=== PATIENT | female | born 1955 | race Caucasian/White ===

== ENCOUNTER 2016-09-16 01:19 | Inpatient (IN) | payer MEDICAID, OTHER ==
[2016-09-16] VITALS (8 sets, daily range): BP systolic 67–139; BP diastolic 61–63; PULSE 73–101; RESP 18–20; TEMP 98.1; Ht 162.6 cm; Wt 80.0 kg
[~2016-09-16] VITALS: Ht 162.6 cm; Wt 80.0 kg
[~2016-09-16 01:19] MED LIST: ACID1TAB14 PO; ADV25050 INH; AMLO5TAB4 PO; ATEN50TA PO; ATOR80TA75 PO; BENA40TA41 PO; BENZ1LOZ4 MT; CALC0.2511 PO; CALC667C PO; CALC667T2 PO; CARV12.579 PO; CLOP75TA27 PO; FLUC150T41 PO; FURO80TA3 PO; GABA100C14 PO; GABA300C PO; HYDR-3671 PO; IPRA4AER INHALATION; LANT3I SC; LEVO500T10 PO; LORA0.5T PO; LOSA50TA6 PO; MICO24CM3 VAG; NOVO3I SC; PANT40TA3 PO; PANT40TA4 PO; POLY15DR42 BOTH EYES; POLY17PO6 PO; PRED5 PO; SEVE800T10 PO; TRAM-40 PO; TRAM50TA2 PO
[2016-09-16] MEDS ORDERED: ONDANSETRON 4 MG INJ IV STA (02:35)
[2016-09-16] MEDS ORDERED: SOD CHLORIDE 0.9% 500 ML IV STA (02:35)
[2016-09-16 03:22] LABS: ADD SCAN DIFF NO
[2016-09-16 03:24] LABS: BASOPHILS % 0.5 % (0.0-2.0); EOSINOPHILS # 0.1 10^3/ul (0.0-0.5); EOSINOPHILS % 1.2 % (0.0-7.0); HEMATOCRIT 41.1 % (37.0-47.0); LYMPHOCYTES # 0.9 10^3/ul (0.8-2.9); LYMPHOCYTES % 11.5 % (15.0-51.0); MEAN CORPUSCULAR HGB CONC 31.6 g/dl (32.0-37.0); MEAN CORPUSCULAR VOLUME 98.1 fl (82.0-101.0); MEAN PLATELET VOLUME 10.3 fl (7.4-10.4); MONOCYTE # 0.4 10^3/ul (0.3-0.9); MONOCYTES % 4.6 % (0.0-11.0); NEUTROPHIL # 6.6 10^3/ul (1.6-7.5); NEUTROPHILS % 81.8 % (39.0-77.0); PLATELET COUNT 218 10^3/UL (140-415); RED BLOOD COUNT 4.19 10^6/ul (4.20-5.40); RED CELL DISTRIBUTION WIDTH 14.6 % (11.5-14.5); WHITE BLOOD COUNT 8.1 10^3/ul (4.8-10.8)
[2016-09-16 03:29] LABS: ADD UMIC YES; UR ASCORBIC ACID NEGATIVE (NEGATIVE); UR BACTERIA FEW /HPF (NONE SEEN); UR BILIRUBIN (Dip) NEGATIVE (NEGATIVE); UR BLOOD (Dip) NEGATIVE (NEGATIVE); UR CLARITY CLEAR (CLEAR); UR COLOR YELLOW (YELLOW); UR GLUCOSE (Dip) 2+ mg/dL (NEGATIVE); UR KETONES (Dip) NEGATIVE (NEGATIVE); UR LEUKOCYTE ESTERASE (Dip) NEGATIVE Leu/ul (NEGATIVE); UR NITRITE (Dip) NEGATIVE (NEGATIVE); UR RBC 1 /HPF (0-5); UR SPECIFIC GRAVITY (Dip) 1.011 (1.003-1.030); UR TOTAL PROTEIN (Dip) 2+ mg/dl (NEGATIVE); UR UROBILINOGEN (Dip) NEGATIVE (NEGATIVE)
[2016-09-16 03:57] LABS: ALANINE AMINOTRANSFERASE 33 IU/L (13-69); ALBUMIN 4.5 g/dl (3.3-4.9); ALBUMIN/GLOBULIN RATIO 1.55; ALKALINE PHOSPHATASE 95 IU/L (42-121); ASPARTATE AMINO TRANSFERASE 23 IU/L (15-46); BILIRUBIN,INDIRECT 0.1 mg/dl (0-1.1); BILIRUBIN,TOTAL 0.1 mg/dl (0.2-1.3); BLOOD UREA NITROGEN 33 mg/dl (7-20); CALCIUM 9.2 mg/dl (8.4-10.2); CHLORIDE 101 mmol/L (97-110); CREATININE 5.69 mg/dl (0.44-1.00); GLUCOSE 137 mg/dl (70-220); POTASSIUM 4.9 mmol/L (3.5-5.1); SODIUM 144 mmol/L (135-144); TOTAL PROTEIN 7.4 g/dl (6.1-8.1)
[2016-09-16 04:09] LABS: TROPONIN-I < 0.012 ng/ml (0.00-0.12)
[2016-09-16 04:11] LABS: ANION GAP 22 (8-16); CARBON DIOXIDE 26 mmol/L (21-31)
[2016-09-16] MEDS ORDERED: CEFEPIME 1GM/50 ML (PMX) 50 ML IVPB ONE (05:00)
[2016-09-16] MEDS ORDERED: METOCLOPRAMIDE 10 MG INJ IV ONE (05:00)
[2016-09-16] MEDS ORDERED: DIPHENHYDRAMINE 50 MG INJ IV ONE (05:00)
--- NOTE | 2016-09-16 06:14 | RADRPT ---
PROCEDURE: CT Brain without contrast. CLINICAL INDICATION: Headache TECHNIQUE: Axial images from the skull base through the vertex without IV contrast. Multiplanar r eformatted images were made. Images were reviewed on a PACS workstation. The CTDIvol is 43.05 mGy and the DLP is 720.23 mGycm. One or more of the following dose reduction techniques were used: auto mated exposure control, adjustment of the mA and/or kV according to patient size, or use of iterativ e reconstruction technique. COMPARISON: None. FINDINGS: There is mild atrophy and probable chronic microvascular ischemic change. There is no evidence for acute territorial infarction or intracranial hemorrhage. No mass or midline shift is seen. No intr a or extra-axial fluid collection is seen. Intracranial vascular calcification is seen. The ocula r lens of both eyes is hypoplastic or absent. IMPRESSION: Mild atrophy and probable chronic microvascular ischemic change. No definite acute intracranial abn ormality. RPTAT: HLBE Physician Cristy Date Time Electronically viewed and signed by Leonarda Morgan Physician on 09/16/2016 06:13 LE/
--- NOTE | 2016-09-16 06:23 | ERA ---
ER Documentation Chief Complaint Date/Time DATE: 09/16/16 TIME: 06:20 Chief Complaint weakness today, dialysis ptdialysis days M/W/F HPI This 61-year-old female presents for severe generalized weakness after dialysis today. States she has dialysis Saturday and sometimes feels weak after dialysis but never this week. She has no focal weaknesses. She also has a headache. She believes she may be dehydrated. She has no chest pain shortness of breath fever or chills. ROS All systems reviewed and are negative except as per history of present illness. Medications Home Meds Active Scripts Gabapentin* (Neurontin*) 300 Mg Capsule, 300 MG PO BID, #60 CAP Prov:LISSY IVERSON. 05/19/16 Albuterol/Ipratropium* (Combivent Respimat*) 20-100 Mcg/Inh - 4 Gm Aer.w.adap, 1 PUFF INHALATION QID for SHORTNESS OF BREATH, #1 INHALER 1 Refill use every 4 hours for the next 48hrs then change to every 4 hours as neededonly for cough and SOB Prov:LISSY IVERSON. 05/19/16 Salmeterol Xinaf/Fluticasone* (Advair*) 250-50 Diskus Inhaler, 1 INH INH BID, # 1 VIAL 2 Refills Prov:LISSY IVERSON . 05/19/16 Prednisone* (Prednisone*) 5 Mg Tab, 10 MG PO DAILY for 5 Days, TAB Prov:LISSY IVERSON . 05/19/16 Pantoprazole* (Pantoprazole*) 40 Mg Tablet.dr, 40 MG PO BID@06,18 for 14 Days Prov:LISSY IVERSONColin 05/19/16 Lactobacillus Acidoph/Bulgaricus* (Floranex*) 1 Each Tablet, 1 TAB PO BID for 30 Days, TAB Prov:LISSY IVERSONColin 05/19/16 Insulin Glargine* (Lantus*) 100 Unit/Ml Soln, 25 UNIT SC DAILY@20 for 30 Days Prov:LISSY IVERSON Colin 05/19/16 Insulin Aspart* (Novolog Insulin Pen*) 100 Unit/Ml Soln, 9 UNIT SC WITH MEALS for 30 Days Prov:CHARLENE IVERSONMarietta TasneemColin 05/19/16 Hydralazine Hcl* (Hydralazine Hcl*) 25 Mg Tab, 25 MG PO Q8 for 30 Days, TAB Prov:LISSY IVERSON. 05/19/16 Carvedilol* (Carvedilol*) 12.5 Mg Tablet, 12.5 MG PO BID for 30 Days, TAB 2 Refills Prov:LISSY IVERSON. 05/19/16 Calcium Acetate* (Calcium Acetate*) 667 Mg Capsule, 667 MG PO WITH MEALS for 30 Days, CAP Prov:LISSY IVERSON. 05/19/16 Calcitriol* (Calcitriol*) 0.25 Mcg Capsule, 0.25 MCG PO DAILY for 30 Days, CAP Prov:LISSY IVERSON 05/19/16 Benzocaine/Menthol (SORE THROAT LOZENGE) 1 Each Lozenge, 1 LOZENGE MT Q1H Y for COUGH, #30 LOZENGE Prov:LISSY IVERSON 05/19/16 Amlodipine Besylate* (Norvasc*) 5 Mg Tablet, 5 MG PO DAILY for 30 Days, TAB Prov:LISSY IVERSON 05/19/16 Reported Medications Losartan Potassium* (Losartan Potassium*) 50 Mg Tablet, 50 MG PO DAILY, TAB 05/11/16 Tramadol Hcl* (Ultram*) 50 Mg Tablet, 50 MG PO BID Y for PAIN, TAB 05/11/16 Furosemide* (Furosemide*) 80 Mg Tablet, 80 MG PO BID, #60 TAB 05/11/16 Allergies Allergies: Coded Allergies: acetaminophen (Verified Allergy, Unknown, 05/11/16) PMhx/Soc History of Surgery: Yes (CATARACT SURGEY, CHOLECYSTECTOMY) Anesthesia Reaction: No Hx Neurological Disorder: No Hx Respiratory Disorders: Yes (ASTHMA ) Hx Cardiac Disorders: Yes (HTN ) Hx Psychiatric Problems: No Hx Miscellaneous Medical Probl: No Hx Alcohol Use: No Hx Substance Use: No Hx Tobacco Use: No Smoking Status: Never smoker Physical Exam Vitals Vital Signs Date Time Temp Pulse Resp B/P Pulse Ox O2 Delivery O2 Flow Rate FiO2 09/16/16 06:20 106 18 163/78 93 Room Air 09/16/16 05:45 97 21 152/69 96 Room Air 09/16/16 01:21 97.8 97 20 166/76 96 Physical Exam Const: [] Mild distress, a appears somewhat ill Head: Atraumatic Eyes: Normal Conjunctiva, EOMI, CATARINA ENT: Normal External Ears, Nose and Mouth. Dry mucous membranes of the mouth consistent with dehydration. Neck: Full range of motion..~ No meningismus. Resp: Clear to auscultation bilaterally Cardio: Regular rate and rhythm, no murmurs Abd: Soft, non tender, non distended. Normal bowel sounds Skin: No petechiae or rashes Back: No midline or flank tenderness Ext: No cyanosis, trace bilateral pedal edema Neur: Awake and alert and oriented 3, cranial nerves II through XII intact, no cerebellar deficits, normal gait Psych: Normal Mood and Affect Result Diagram: 09/16/167 09/16/167 Results 24 hrs Laboratory Tests Test 09/16/16 02:47 09/16/16 02:56 White Blood Count 8.110^3/ul Red Blood Count 4.1910^6/ul Hemoglobin 13.0g/dl Hematocrit 41.1% Mean Corpuscular Volume 98.1fl Mean Corpuscular Hemoglobin 31.0pg Mean Corpuscular Hemoglobin Concent 31.6g/dl Red Cell Distribution Width 14.6% Platelet Count 63869^3/UL Mean Platelet Volume 10.3fl Neutrophils % 81.8% Lymphocytes % 11.5% Monocytes % 4.6% Eosinophils % 1.2% Basophils % 0.5% Nucleated Red Blood Cells % 0.0/100WBC Neutrophils # 6.610^3/ul Lymphocytes # 0.910^3/ul Monocytes # 0.410^3/ul Eosinophils # 0.110^3/ul Basophils # 0.010^3/ul Nucleated Red Blood Cells # 0.010^3/ul Sodium Level 144mmol/L Potassium Level 4.9mmol/L Chloride Level 101mmol/L Carbon Dioxide Level 26mmol/L Anion Gap 22 Blood Urea Nitrogen 33mg/dl Creatinine 5.69mg/dl Glucose Level 137mg/dl Lactic Acid Level 1.4mmol/L Calcium Level 9.2mg/dl Total Bilirubin 0.1mg/dl Direct Bilirubin 0.00mg/dl Indirect Bilirubin 0.1mg/dl Aspartate Amino Transf (AST/SGOT) 23IU/L Alanine Aminotransferase (ALT/SGPT) 33IU/L Alkaline Phosphatase 95IU/L Troponin I < 0.012ng/ml Total Protein 7.4g/dl Albumin 4.5g/dl Globulin 2.90g/dl Albumin/Globulin Ratio 1.55 Lipase 41U/L Urine Color YELLOW Urine Clarity CLEAR Urine pH 9.0 Urine Specific [place] 1.011 Urine Ketones NEGATIVEmg/dL Urine Nitrite NEGATIVEmg/dL Urine Bilirubin NEGATIVEmg/dL Urine Urobilinogen NEGATIVEmg/dL Urine Leukocyte Esterase NEGATIVELeu/ul Urine Microscopic RBC 1/HPF Urine Microscopic WBC 3/HPF Urine Bacteria FEW/HPF Urine Hemoglobin NEGATIVEmg/dL Urine Glucose 2+mg/dL Urine Total Protein 2+mg/dl Current Medications Medications (Trade) Dose Ordered Sig/Daniel Route PRN Reason Start Time Stop Time Status Last Admin Dose Admin Sodium Chloride (NS) 500 ml @ 500 mls/hr Q1H STAT IV 09/16/16 02:35 09/16/16 03:34 DC 09/16/16 03:07 Ondansetron HCl 4 mg 4 mg ONCE STAT IV 09/16/16 02:35 09/16/16 02:38 DC 09/16/16 03:06 Cefepime HCl (Maxipime 1gm/50 ml (Pmx)) 50 ml @ 100 mls/hr ONCE ONCE IVPB 09/16/16 05:00 09/16/16 05:29 DC 09/16/16 05:05 Metoclopramide HCl (Reglan) 10 mg ONCE ONCE IV 09/16/16 05:00 09/16/16 05:01 DC 09/16/16 05:06 Diphenhydramine HCl 6.25 mg 6.25 mg ONCE ONCE IV 09/16/16 05:00 09/16/16 05:01 DC 09/16/16 05:06 Sodium Chloride (NS) 1,000 ml @ 1,000 mls/hr Q1H ONCE IV 09/16/16 07:00 09/16/16 07:59 Procedures/MDM Dehydration from possible over dialysis and generalized weakness. 61-year-old dialysis patient with no signs of infection but does have signs of daily dehydration on physical exam with dry mucous membranes and patient states that she feels very dehydrated. After liter of normal saline she feels a little better but still feels too weak to get up and perform activities of daily living. This reason I think it is prudent to admit her to the hospital for hydration and monitoring as she says she has never felt this week before. Her a few white blood cells in the patient's urine and she was given a gram of cefepime. EKG interpretation: Normal sinus rhythm rate of 94, normal axis, no ST or T- wave changes concerning for acute ischemia, normal intervals. shelter monitor interpretation: Normal sinus rhythm alternating with sinus tachycardia no other arrhythmias CT head interpretation: I see no acute process. I see no hemorrhage, no mass- effect or midline shift no skull fracture Departure Diagnosis: Primary Impression: Acute weakness Additional Impression: Dehydration Condition: Stable LENNOX AMEZQUITA DO Sep 16, 2016 06:23
[2016-09-16] MEDS ORDERED: SOD CHLORIDE 0.9% 1,000 ML IV ONE (07:00)
[2016-09-16] MEDS ORDERED: GLUCOSE GEL 15 GRAM TUBE BUCCAL PRN (08:00)
[2016-09-16] MEDS ORDERED: ZOLPIDEM 5 MG TAB PO PRN (08:00)
[2016-09-16] MEDS ORDERED: CEPASTAT LOZENGE MT PRN (08:00)
[2016-09-16] MEDS ORDERED: ONDANSETRON 4 MG INJ IV PRN (08:00)
[2016-09-16] MEDS ORDERED: ACETAMINOPHEN 325 MG TAB PO PRN (08:00)
[2016-09-16] MEDS ORDERED: DOCUSATE SODIUM 100 MG CAP PO PRN (08:00)
[2016-09-16] MEDS ORDERED: MAGNESIUM HYDROXIDE 30ML CUP PO PRN (08:00)
[2016-09-16] MEDS ORDERED: DEXTROSE 50% 50 ML SYRINGE IV PRN ×2 (08:00)
[2016-09-16] MEDS ORDERED: GLUCOSE GEL 15 GRAM TUBE PO PRN ×2 (08:00)
[2016-09-16] MEDS ORDERED: NACL 0.9% 3 ML SYG IV SCH (08:00)
[2016-09-16] MEDS ORDERED: GLUCAGON 1 MG INJ IM PRN (08:00)
--- NOTE | 2016-09-16 08:32 | RADRPT ---
PROCEDURE: CT Abdomen and pelvis without contrast. CLINICAL INDICATION: Abdominal pain. Weakness. TECHNIQUE: CT scan of the abdomen and pelvis without contrast was performed on a multidetector hig h-resolution CT scan. . Coronal and sagittal reformatted images were obtained from the axial [facility] e images. Standard CT scan of the abdomen pelvis without contrast protocols were performed. The total exam CTDI equals 22.43 mGy and the total exam DLP equals 1274.43 mGy-cm. One or more of the following dose reduction techniques were used: - Automated exposure control. - Adjustment of the mA and/or kV according to patient size. Use of iterative reconstruction technique. COMPARISON: None. FINDINGS: The kidneys are mildly atrophic. No intra renal masses or hydronephrosis bilaterally. There are va scular calcifications involving both kidneys. However in the posterior mid right kidney is a a 3 mm non-obstructing calcified calculus. The ureters and urinary bladder appear unremarkable. The gallbladder is not visualized consistent with cholecystectomy. No evidence of biliary ductal di lation. The liver spleen pancreas and adrenal glands are unremarkable. Scattered diverticulosis throughout the colon but no CT evidence of diverticulitis. Those portions would appear to be the appendix are unremarkable. No CT evidence of appendicitis. The stomach and small bowel are unremarkable. No evidence of intra-abdominal free air, free fluid, abscesses or lymphadenopathy. The uterus is anteverted with left a calcified leiomyoma. No adnexal masses. No evidence of intra- abdominal free air, free fluid, There is extensive atherosclerosis of the aorta and its branches but no aneurysm. Lower thoracic ab dominal pelvic rodriguez are unremarkable. Parenchymal changes at the lung bases consistent with chroni c interstitial lung disease and atelectasis. The lung bases are otherwise unremarkable. There is d egenerative changes lower thoracic and lumbar spine without acute osseous findings are osteoblastic/ osteolytic lesions. IMPRESSION: 1. 3 mm nonobstructing mid right renal calculus. Mild atrophy of both kidneys without intrarenal m asses or obstructive uropathy bilaterally. 2. Status post cholecystectomy of biliary ductal dilation. 3. Colonic diverticulosis without CT evidence of diverticulitis or appendicitis. 4. Negative for intra-abdominal free air fluid abscesses or lymphadenopathy. RPTAT:AAJJ Michelle Lassiter Physician Date Time Electronically viewed and signed by Michelle Lassiter Physician on 09/16/2016 08:32 BM/
--- NOTE | 2016-09-16 08:36 | HP ---
DATE OF ADMISSION: 09/16/2016 CHIEF COMPLAINT: Fatigue. HISTORY OF PRESENT ILLNESS: The patient is a 61-year-old female with history of end-stage renal dis ease on dialysis Saturday, Saturday, and Saturday for the past 2 years. The patient has a history of a sthma, type 2 diabetes, hypertension. The patient states that for the past approximately a year she has been having difficulty eating with nausea. She states that as of 2 days ago she has been feeli ng extremely weak, unable to ambulate. She did receive her dialysis as normal on Saturday but continu ed to feel weak and came to the ED for further evaluation. In the ER, the patient's workup showed n o UTI. Brain CT was negative for any acute findings. The patient does report some abdominal pain a t this time but states that is her baseline. The patient has no other complaints at this time. She denies any burning with urination. She denies any chest pain, any headaches, any fevers, but does have chronic chills. PAST MEDICAL HISTORY: As per HPI which includes asthma, hypertension, end-stage renal disease, and type 2 diabetes. PAST SURGICAL HISTORY: AV fistula placement in the past. HOME MEDICATIONS: 1. Norvasc. 2. Calcitriol. 3. Coreg. 4. Furosemide. 5. Gabapentin. 6. Hydralazine. 7. Insulin. 8. Losartan. 9. Protonix. 10. Prednisone. 11. Advair. 12. Tramadol. ALLERGIES: ACETAMINOPHEN. FAMILY HISTORY: Noncontributory. SOCIAL HISTORY: Denies any alcohol, tobacco, or drug abuse. REVIEW OF SYSTEMS: A 12-point review of systems negative except that mentioned in the HPI. PHYSICAL EXAMINATION: VITAL SIGNS: Temperature is 98.9, pulse 100, respiratory rate is 18, BP is 160/60, saturation 97% o n 2 L. GENERAL: Mild distress, alert and oriented. HEENT: Normocephalic, atraumatic. LUNGS: Clear to auscultation. CARDIOVASCULAR: Regular rate and rhythm. ABDOMEN: Nondistended, soft, tender to palpation. EXTREMITIES: No clubbing, cyanosis, or edema. LABORATORY TESTS: White count is 8.1, hemoglobin 16.0, platelets of 218. Chemistry within normal l imits except for creatinine of 5.69, BUN is 33, anion gap is 22, AST is 1.4. DIAGNOSTICS: Brain CT shows mild atrophy and probable chronic microvascular ischemic changes, no ac solomon intracranial abnormality. ASSESSMENT AND PLAN: 1. Generalized weakness with significant fatigue and difficulty ambulating. Etiology is unclear at this time. The patient has no evidence of a UTI. Chest x-ray has not been obtained, and we will o btain one. We will also obtain an abdominopelvic CT as she is having pain for almost a year now and has been having a hard time tolerate a p.o. diet. This could be related to gastroparesis, but we w ill do a CAT scan to rule out any intraabdominal pathology. Once again, we will follow up on chest x-ray to rule out pneumonia or fluid overload. 2. End-stage renal disease. We will consult nephrology during this hospitalization for dialysis. 3. Diabetes. Continue home insulin regimen. 4. Hypertension. Continue home medications. 5. Prophylaxis: SCDs. Dictated By: SUSANA HELMS/ANASTASIIA Conf#: [id number] DID#: [id number]
--- NOTE | 2016-09-16 08:44 | RADRPT ---
PROCEDURE: XR Chest. CLINICAL INDICATION: Shortness of breath. TECHNIQUE: A single portable view of the chest was obtained. COMPARISON: 05/15/2016 FINDINGS: The cardiomediastinal silhouette is mildly enlarged. Mild prominence of the pulmonary vascularity is seen. No dense consolidation or pleural effusion is seen. The soft tissues and osseous structures are unremarkable. IMPRESSION: 1. Stable mild cardiomegaly. 2. Mild prominence of the pulmonary vascularity. RPTAT: HPNM Physician Lynda Date Time Electronically viewed and signed by Wojciech Santana Physician on 09/16/2016 08:44 /
[2016-09-16] MEDS ORDERED: GABAPENTIN 300 MG CAP PO SCH ×2 (09:00→21:00)
[2016-09-16] MEDS: CALCIUM ACETATE 667 MG CAP PO SCH ×3 (09:32→17:25)
[2016-09-16] MEDS: CALCITRIOL 0.25 MCG CAP PO SCH (09:32)
[2016-09-16] MEDS: SALMETEROL/FLUTICASONE 250/50 INHA INH SCH ×2 (09:32→22:00)
[2016-09-16] MEDS: FUROSEMIDE 40 MG TAB PO SCH ×2 (09:33→17:25)
[2016-09-16] MEDS: L ACIDOPHIL/B LACTIS/B LONGUM CAPSULE PO SCH ×2 (09:34→21:00)
[2016-09-16] MEDS: AMLODIPINE 5 MG TAB PO SCH (09:34)
[2016-09-16] MEDS: LOSARTAN 50 MG TAB PO SCH (09:34)
[2016-09-16] MEDS: INSULIN ASPART [NOVOLOG] 3 ML PEN SC SCH ×3 (09:36→17:27)
[2016-09-16] MEDS: HYDROCODONE/APAP (5/325) TAB PO PRN ×2 (09:43→22:08)
[2016-09-16] MEDS: PANTOPRAZOLE (EC) 40 MG TAB PO SCH (17:25)
[2016-09-16] MEDS: INSULIN GLARGINE [LANtus] 3 ML PEN SC SCH (20:00)
[2016-09-16] MEDS ORDERED: INSULIN GLARGINE [LANtus] 3 ML PEN SC SCH (20:00)
[2016-09-16] MEDS: ALBUTEROL/IPRATROPIUM (NEB) 3 ML AMP NEB SCH (21:08)
[2016-09-17] VITALS (17 sets, daily range): BP systolic 101–155; BP diastolic 48–66; PULSE 64–77; RESP 17–20
[2016-09-17] MEDS: morphine 2 MG INJ IV PRN (03:19)
[2016-09-17] MEDS: PANTOPRAZOLE (EC) 40 MG TAB PO SCH ×2 (05:57→16:57)
--- NOTE | 2016-09-17 07:27 | CONS ---
DATE OF ADMISSION: 09/16/2016 DATE OF CONSULTATION: Dear Dr. Schneider: Thank you for asking me to participate in the care of this 61-year-old para 3 3 Latin female who has been admitted to the hospital via emergency room with chief complaint of abdominal pain, generalized weakness. The patient has been admitted to this facility before and is known to have diabetes, hypertension, end-stage kidney disease, and is maintained on hemodialysis 3 times a week. The patient was last dialyzed on Saturday and has been admitted for further evaluation and treatment. Please refer to the hospital record for rest of the details. Suffice it to say, patient has had some basic lab work performed with a white count 8.1, hematocrit is 41%, and the blood sugar has hovered between 312 to 55. The BUN and creatinine 33 and 5.69. Troponin is normal. Lactic acid 1.4. The patient has already had a CT scan of the abdomen done, which shows a renal calculus on the right side at review of both kidneys, status post cholecystectomy, bilateral duct dilatation, and colonic diverticulosis without evidence of diverticulitis. No other abnormality is detected. The patient has been somewhat of a difficult problem because she constantly complains of either poor appetite. Pain is all over, although has continued, and any medical regimen has not really helped her thus far. The rest of the past history is available in the hospital notes and the reviewer is advised to contact those notes for further details. MEDICATIONS: The patient has been maintained on multiple medications at home includin. Gabapentin. 2. Insulin. 3. Carvedilol. 4. Calcium acetate. 5. Calcitriol. 6. Norvasc. 7. Losartan. 8. Tramadol. 9. Furosemide. 10. Protonix. 11. Prednisone. I do not know what that is for. PAST MEDICAL HISTORY: The rest of the past history is as mentioned. Three pregnancies. PERSONAL HISTORY: The patient lives with a daughter. Does not smoke, drink, or use any other medications. REVIEW OF SYSTEMS: Negative for head, ear, nose, throat problem. The patient denies any chest pain, cough, hemoptysis, fevers, chills. No history of PTA problem. No seizures, syncope, or other metabolic problem. PHYSICAL EXAMINATION: GENERAL: The patient to be moderately obese female who seems comfortable in bed , although looks depressed, anxious, and worried. VITAL SIGNS: Blood pressure has been reasonably stable, the last one being 129/ 61, heart rate is 71, temperature 97, respiration is 18. HEAD, EYE, EAR, NOSE, AND THROAT: Unremarkable. Conjunctivae pale. Sclerae are anicteric. NOSE: Normal mucosa. THROAT: No pharyngeal congestion. NECK: No lymph nodes. Thyroid is present. Trachea is midline. CHEST: Symmetrical. BREASTS: Not examined. HEART: Regular rhythm. ABDOMEN: Obese, generalized tenderness elicited (the patient says she has had a BM every day). LABORATORY DATA: A urinalysis shows 2+ glucose, 2+ protein, 3 white cells, and few bacteria. IMPRESSION: 1. Obesity. 2. Diabetes. 3. Hypertension. 4. End-stage kidney disease on hemodialysis. 5. Generalized nonspecific abdominal pain, etiology unclear. 6. Status post cholecystectomy with Bilateral duct dilatation. PLAN: This patient has biliary duct dilatation, the significance of which is not clear. Whether there is some pancreatic lesion will have to be evaluated and workup does include a lipase, which is 41 and is normal.I will leave the management of the abdominal pain, generalized weakness in your good hands. Please note hematocrit is 41%. She does not need any Epogen at this time. I will maintain hemodialysis Saturday, Saturday, Saturday basis, which she has been getting for about a year. Dictated By: GEOFFREY RÍOS/NTS Conf#: [id number] DID#: [id number] CC: SUSANA CHRISTINE MD;*EndCC* MTDD
[2016-09-17] MEDS: ALBUTEROL/IPRATROPIUM (NEB) 3 ML AMP NEB SCH ×4 (07:51→20:32)
[2016-09-17 08:08] LABS: ADD SCAN DIFF NO
[2016-09-17 08:20] LABS: BASOPHILS % 0.5 % (0.0-2.0); EOSINOPHILS # 0.2 10^3/ul (0.0-0.5); EOSINOPHILS % 1.7 % (0.0-7.0); HEMATOCRIT 37.4 % (37.0-47.0); HEMOGLOBIN 11.4 g/dl (12.0-16.0); LYMPHOCYTES # 1.4 10^3/ul (0.8-2.9); LYMPHOCYTES % 16.4 % (15.0-51.0); MEAN CORPUSCULAR HEMOGLOBIN 30.2 pg (29.0-33.0); MEAN CORPUSCULAR HGB CONC 30.5 g/dl (32.0-37.0); MEAN CORPUSCULAR VOLUME 98.9 fl (82.0-101.0); MEAN PLATELET VOLUME 10.5 fl (7.4-10.4); MONOCYTE # 0.5 10^3/ul (0.3-0.9); MONOCYTES % 5.2 % (0.0-11.0); NEUTROPHIL # 6.5 10^3/ul (1.6-7.5); NEUTROPHILS % 75.7 % (39.0-77.0); PLATELET COUNT 186 10^3/UL (140-415); RED BLOOD COUNT 3.78 10^6/ul (4.20-5.40); RED CELL DISTRIBUTION WIDTH 14.7 % (11.5-14.5); WHITE BLOOD COUNT 8.6 10^3/ul (4.8-10.8)
[2016-09-17] MEDS: INSULIN ASPART [NOVOLOG] 3 ML PEN SC SCH ×5 (08:55→20:19)
[2016-09-17] MEDS: LOSARTAN 50 MG TAB PO SCH (08:56)
[2016-09-17] MEDS: CALCITRIOL 0.25 MCG CAP PO SCH (08:56)
[2016-09-17] MEDS: SALMETEROL/FLUTICASONE 250/50 INHA INH SCH ×2 (08:56→20:16)
[2016-09-17] MEDS: CALCIUM ACETATE 667 MG CAP PO SCH ×3 (08:57→17:04)
[2016-09-17] MEDS: AMLODIPINE 5 MG TAB PO SCH (08:59)
[2016-09-17] MEDS: GABAPENTIN 100 MG CAP PO SCH ×2 (09:11→20:18)
[2016-09-17] MEDS: L ACIDOPHIL/B LACTIS/B LONGUM CAPSULE PO SCH ×2 (09:20→22:11)
[2016-09-17] MEDS: HYDROCODONE/APAP (5/325) TAB PO PRN (09:44)
[2016-09-17 10:59] LABS: CALCIUM 8.7 mg/dl (8.4-10.2); CREATININE 3.73 mg/dl (0.44-1.00); MAGNESIUM 1.9 mg/dl (1.7-2.5); PHOSPHORUS 4.7 mg/dl (2.5-4.9); POTASSIUM 3.5 mmol/L (3.5-5.1)
--- NOTE | 2016-09-17 18:08 | PN ---
Date/Time of Note Date/Time of Note DATE: 09/17/16 TIME: 18:06 Assessment/Plan VTE Prophylaxis VTE Prophylaxis Intervention: SCD's Lines/Catheters IV Catheter Type (from Nrs): Saline Lock Assessment/Plan Assessment/Plan 1. Generalized weakness with significant fatigue and difficulty ambulating. Etiology is unclear at this time. The patient has no evidence of a UTI. Chest x-ray has not been obtained, and we will obtain one. We will also obtain an abdominopelvic CT as she is having pain for almost a year now and has been having a hard time tolerate a p.o. diet. This could be related to gastroparesis , but we will do a CAT scan to rule out any intraabdominal pathology. Once again, we will follow up on chest x-ray to rule out pneumonia or fluid overload. 2. End-stage renal disease. We will consult nephrology during this hospitalization for dialysis. 3. Diabetes. Continue home insulin regimen. 4. Hypertension. Continue home medications. 5. Prophylaxis: SCDs. X ray chest to rule out rib fracture X ray LS spine HD as pre nephrology Subjective 24 Hr Interval Summary Free Text/Dictation c/o right back pain, h/o fall episode one week before, BP stable, afebrile Exam/Review of Systems Vital Signs Vitals Vital Signs Date Time Temp Pulse Resp B/P Pulse Ox O2 Delivery O2 Flow Rate FiO2 09/17/16 16:28 2.0 09/17/16 16:27 73 18 95 21 09/17/16 15:40 97.7 118/55 09/17/16 13:28 Nasal Cannula Intake and Output 09/16/16 09/16/16 09/17/16 15:00 23:00 07:00 Intake Total 720 ml 900 ml Output Total 3000 ml Balance 720 ml -2100 ml Exam GENERAL: Mild distress, alert and oriented. HEENT: Normocephalic, atraumatic. LUNGS: Clear to auscultation. CARDIOVASCULAR: Regular rate and rhythm. ABDOMEN: Nondistended, soft, tender to palpation. EXTREMITIES: No clubbing, cyanosis, or edema. Results Result Diagram: 09/17/16 0720 09/17/16 0935 Results 24 hrs Laboratory Tests Test 09/16/16 22:10 09/17/16 02:32 09/17/16 07:20 09/17/16 07:57 Bedside Glucose 93 93 159 White Blood Count 8.6 Red Blood Count 3.78 L Hemoglobin 11.4 L Hematocrit 37.4 Mean Corpuscular Volume 98.9 Mean Corpuscular Hemoglobin 30.2 Mean Corpuscular Hemoglobin Concent 30.5 L Red Cell Distribution Width 14.7 H Platelet Count 186 Mean Platelet Volume 10.5 H Neutrophils % 75.7 Lymphocytes % 16.4 Monocytes % 5.2 Eosinophils % 1.7 Basophils % 0.5 Nucleated Red Blood Cells % 0.0 Neutrophils # 6.5 Lymphocytes # 1.4 Monocytes # 0.5 Eosinophils # 0.2 Basophils # 0.0 Nucleated Red Blood Cells # 0.0 Hemoglobin A1c 6.5 H Test 09/17/16 09:35 09/17/16 11:55 09/17/16 16:56 Sodium Level 140 Potassium Level 3.5 Chloride Level 98 Carbon Dioxide Level 29 Anion Gap 17 H Blood Urea Nitrogen 21 #H Creatinine 3.73 #H Glucose Level 166 Calcium Level 8.7 Phosphorus Level 4.7 Magnesium Level 1.9 Bedside Glucose 165 104 Medications Medications Current Medications Ondansetron HCl (Zofran Inj) 4 mg Q6H PRN IV NAUSEA AND/OR VOMITING; Start at 08:00 Acetaminophen (Tylenol Tab) 650 mg Q6H PRN PO PAIN LEVEL 1-3 OR FEVER; Start at 08:00 Acetaminophen/ Hydrocodone Bitart ([place] (5/325)) 1 tab Q6H PRN PO MODERATE PAIN LEVEL 4-6 Last administered on 09/17/16 09:44; Admin Dose 1 TAB; Start at 08:00 Morphine Sulfate (morphine) 2 mg Q4H PRN IV SEVERE PAIN LEVEL 7-10 Last administered on 09/17/16 03:19; Admin Dose 2 MG; Start 09/16/16 at 08:00 Docusate Sodium (Colace) 100 mg Q12H PRN PO CONSTIPATION; Start 09/16/16 at 08: 00 Magnesium Hydroxide (Milk Of Mag) 30 ml DAILY PRN PO CONSTIPATION; Start at 08:00 Zolpidem Tartrate (Ambien) 5 mg QHS PRN PO SLEEP; Start 09/16/16 at 08:00 Amlodipine Besylate (Norvasc) 5 mg DAILY PO Last administered on 09/17/16 08: 59; Admin Dose 5 MG; Start 09/16/16 at 09:00 Phenol (Cepastat Lozenge) 1 lozenge Q1H PRN MT COUGH; Start 09/16/16 at 08:00 Calcitriol (Rocaltrol) 0.25 mcg DAILY PO Last administered on 09/17/16 08:56; Admin Dose 0.25 MCG; Start 09/16/16 at 09:00 Carvedilol (Coreg) 12.5 mg BID PO Last administered on 09/17/16 08:59; Admin Dose 12.5 MG; Start 09/16/16 at 09:00 Hydralazine HCl (Apresoline) 25 mg Q8 PO Last administered on 09/17/16 13:51; Admin Dose 25 MG; Start 09/16/16 at 08:00 Losartan Potassium (Cozaar) 50 mg DAILY PO Last administered on 09/17/16 08:56 ; Admin Dose 50 MG; Start 09/16/16 at 09:00 Pantoprazole (Protonix Tab) 40 mg BID@,18 PO Last administered on 09/17/16 16:57; Admin Dose 40 MG; Start 09/16/16 at 18:00 Salmeterol Xinafoate/ Fluticasone (Advair 250/50 Diskus) 1 inh BID INH Last administered on 09/17/16 08:56; Admin Dose 1 INH; Start 09/16/16 at 09:00 Tramadol HCl (Ultram) 50 mg BID PRN PO PAIN; Start 09/16/16 at 08:00 Lactobacillus Acidophilus (Florajen3 Capsule) 1 each BID PO Last administered on 09/17/16 09:20; Admin Dose 1 EACH; Start 09/16/16 at 09:00 Miscellaneous Information 1 ea NOTE XX ; Start 09/16/16 at 08:00 Glucose (Glutose) 15 gm Q15M PRN PO DECREASED GLUCOSE; Start 09/16/16 at 08:00 Glucose (Glutose) 22.5 gm Q15M PRN PO DECREASED GLUCOSE; Start 09/16/16 at 08: 00 Dextrose (D50w Syringe) 25 ml Q15M PRN IV DECREASED GLUCOSE Last administered on 09/16/16 13:50; Admin Dose 25 ML; Start 09/16/16 at 08:00 Dextrose (D50w Syringe) 50 ml Q15M PRN IV DECREASED GLUCOSE; Start 09/16/16 at 08:00 Glucagon (Glucagen) 1 mg Q15M PRN IM DECREASED GLUCOSE; Start 09/16/16 at 08:00 Glucose (Glutose) 15 gm Q15M PRN BUCCAL DECREASED GLUCOSE; Start 09/16/16 at 08 :00 Insulin Glargine (Lantus) 15 unit DAILY@20 SC Last administered on 09/16/16 20 :00; Admin Dose 15 UNIT; Start 09/16/16 at 20:00 Gabapentin (Neurontin) 100 mg BID PO Last administered on 09/17/16 09:11; Admin Dose 100 MG; Start 09/17/16 at 09:00 Diagnostic Test (Pha) (Accu-Chek) 1 02 XX ; Start 09/18/16 at 02:00 DORON HUIZAR MD Sep 17, 2016 18:08
[2016-09-17] MEDS: INSULIN GLARGINE [LANtus] 3 ML PEN SC SCH (20:17)
--- NOTE | 2016-09-17 20:55 | CONS ---
Date/Time of Note Date/Time of Note DATE: 09/17/16 TIME: 20:51 Assessment/Plan Assessment/Plan Chief Complaint/Hosp Course Pt had HD today Problems: Additional Assessment/Plan Left a msg with correctional case manager without response Consultation Date/Type/Reason Admit Date/Time Sep 16, 2016 at 07:51 Initial Consult Date 09/16/16 Reason for Consultation esrd 24 HR Interval Summary Free Text/Dictation Pt finally announced that "I am homeless", she says "I need help" Exam/Review of Systems Vital Signs Vitals Vital Signs Date Time Temp Pulse Resp B/P Pulse Ox O2 Delivery O2 Flow Rate FiO2 09/17/16 20:35 98.2 76 17 146/66 94 09/17/16 20:34 2.0 09/17/16 20:34 21 09/17/16 13:28 Nasal Cannula Intake and Output 09/16/16 09/16/16 09/17/16 15:00 23:00 07:00 Intake Total 720 ml 900 ml Output Total 3000 ml Balance 720 ml -2100 ml Exam Constitutional: obese Psych: nl mood/affect, no complaints Head: atraumatic, normocephalic Eyes: EOMI, PERRL, nl conjunctiva, nl lids, nl sclera ENMT: nl external ears & nose, nl lips & teeth, nl nasal mucosa & septum Neck: non-tender, supple Respiratory: clear to auscultation, normal air movement Cardiovascular: nl pulses, regular rate and rhythm Gastrointestinal: nl liver, spleen, non-tender, soft Musculoskeletal: nl extremities to inspection, nl gait and stance Extremities: normal pulses, other (L arm avf bruit present) 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, nl mental status, nl speech, nl strength Skin: nl turgor, No rash or lesions Lymph: nl lymph nodes Results Result Diagram: 09/17/16 0720 09/17/16 0935 Results 24 hrs Laboratory Tests Test 09/16/16 22:10 09/17/16 02:32 09/17/16 07:20 09/17/16 07:57 Bedside Glucose 93 93 159 White Blood Count 8.6 Red Blood Count 3.78 L Hemoglobin 11.4 L Hematocrit 37.4 Mean Corpuscular Volume 98.9 Mean Corpuscular Hemoglobin 30.2 Mean Corpuscular Hemoglobin Concent 30.5 L Red Cell Distribution Width 14.7 H Platelet Count 186 Mean Platelet Volume 10.5 H Neutrophils % 75.7 Lymphocytes % 16.4 Monocytes % 5.2 Eosinophils % 1.7 Basophils % 0.5 Nucleated Red Blood Cells % 0.0 Neutrophils # 6.5 Lymphocytes # 1.4 Monocytes # 0.5 Eosinophils # 0.2 Basophils # 0.0 Nucleated Red Blood Cells # 0.0 Hemoglobin A1c 6.5 H Test 09/17/16 09:35 09/17/16 11:55 09/17/16 16:56 09/17/16 20:12 Sodium Level 140 Potassium Level 3.5 Chloride Level 98 Carbon Dioxide Level 29 Anion Gap 17 H Blood Urea Nitrogen 21 #H Creatinine 3.73 #H Glucose Level 166 Calcium Level 8.7 Phosphorus Level 4.7 Magnesium Level 1.9 Bedside Glucose 165 104 99 Medications Medications Current Medications Ondansetron HCl (Zofran Inj) 4 mg Q6H PRN IV NAUSEA AND/OR VOMITING; Start at 08:00 Acetaminophen (Tylenol Tab) 650 mg Q6H PRN PO PAIN LEVEL 1-3 OR FEVER; Start at 08:00 Acetaminophen/ Hydrocodone Bitart ([place] (5/325)) 1 tab Q6H PRN PO MODERATE PAIN LEVEL 4-6 Last administered on 09/17/16 09:44; Admin Dose 1 TAB; Start at 08:00 Morphine Sulfate (morphine) 2 mg Q4H PRN IV SEVERE PAIN LEVEL 7-10 Last administered on 09/17/16 03:19; Admin Dose 2 MG; Start 09/16/16 at 08:00 Docusate Sodium (Colace) 100 mg Q12H PRN PO CONSTIPATION; Start 09/16/16 at 08: 00 Magnesium Hydroxide (Milk Of Mag) 30 ml DAILY PRN PO CONSTIPATION; Start at 08:00 Zolpidem Tartrate (Ambien) 5 mg QHS PRN PO SLEEP; Start 09/16/16 at 08:00 Amlodipine Besylate (Norvasc) 5 mg DAILY PO Last administered on 09/17/16 08: 59; Admin Dose 5 MG; Start 09/16/16 at 09:00 Phenol (Cepastat Lozenge) 1 lozenge Q1H PRN MT COUGH; Start 09/16/16 at 08:00 Calcitriol (Rocaltrol) 0.25 mcg DAILY PO Last administered on 09/17/16 08:56; Admin Dose 0.25 MCG; Start 09/16/16 at 09:00 Carvedilol (Coreg) 12.5 mg BID PO Last administered on 09/17/16 20:18; Admin Dose 12.5 MG; Start 09/16/16 at 09:00 Hydralazine HCl (Apresoline) 25 mg Q8 PO Last administered on 09/17/16 13:51; Admin Dose 25 MG; Start 09/16/16 at 08:00 Losartan Potassium (Cozaar) 50 mg DAILY PO Last administered on 09/17/16 08:56 ; Admin Dose 50 MG; Start 09/16/16 at 09:00 Pantoprazole (Protonix Tab) 40 mg BID@18 PO Last administered on 09/17/16 16:57; Admin Dose 40 MG; Start 09/16/16 at 18:00 Salmeterol Xinafoate/ Fluticasone (Advair 250/50 Diskus) 1 inh BID INH Last administered on 09/17/16 20:16; Admin Dose 1 INH; Start 09/16/16 at 09:00 Tramadol HCl (Ultram) 50 mg BID PRN PO PAIN; Start 09/16/16 at 08:00 Lactobacillus Acidophilus (Florajen3 Capsule) 1 each BID PO Last administered on 09/17/16 09:20; Admin Dose 1 EACH; Start 09/16/16 at 09:00 Miscellaneous Information 1 ea NOTE XX ; Start 09/16/16 at 08:00 Glucose (Glutose) 15 gm Q15M PRN PO DECREASED GLUCOSE; Start 09/16/16 at 08:00 Glucose (Glutose) 22.5 gm Q15M PRN PO DECREASED GLUCOSE; Start 09/16/16 at 08: 00 Dextrose (D50w Syringe) 25 ml Q15M PRN IV DECREASED GLUCOSE Last administered on 09/16/16 13:50; Admin Dose 25 ML; Start 09/16/16 at 08:00 Dextrose (D50w Syringe) 50 ml Q15M PRN IV DECREASED GLUCOSE; Start 09/16/16 at 08:00 Glucagon (Glucagen) 1 mg Q15M PRN IM DECREASED GLUCOSE; Start 09/16/16 at 08:00 Glucose (Glutose) 15 gm Q15M PRN BUCCAL DECREASED GLUCOSE; Start 09/16/16 at 08 :00 Insulin Glargine (Lantus) 15 unit DAILY@20 SC Last administered on 09/17/16 20 :17; Admin Dose 15 UNIT; Start 09/16/16 at 20:00 Gabapentin (Neurontin) 100 mg BID PO Last administered on 09/17/16 20:18; Admin Dose 100 MG; Start 09/17/16 at 09:00 Diagnostic Test (Pha) (Accu-Chek) 1 02 XX ; Start 09/18/16 at 02:00 EGOFFREY PAT MD Sep 17, 2016 20:55
[2016-09-18] VITALS (12 sets, daily range): BP systolic 114–159; BP diastolic 49–69; PULSE 68–97; RESP 16–22
[2016-09-18] MEDS: ACCU-CHEK XX SCH (02:00)
[2016-09-18] MEDS: PANTOPRAZOLE (EC) 40 MG TAB PO SCH ×2 (06:15→17:18)
[2016-09-18] MEDS: ALBUTEROL/IPRATROPIUM (NEB) 3 ML AMP NEB SCH ×4 (07:44→20:36)
[2016-09-18 08:16] LABS: ADD SCAN DIFF NO
[2016-09-18 08:22] LABS: BASOPHIL # 0.1 10^3/ul (0.0-0.1); BASOPHILS % 0.5 % (0.0-2.0); EOSINOPHILS # 0.1 10^3/ul (0.0-0.5); EOSINOPHILS % 1.2 % (0.0-7.0); HEMATOCRIT 37.4 % (37.0-47.0); HEMOGLOBIN 11.6 g/dl (12.0-16.0); LYMPHOCYTES # 1.4 10^3/ul (0.8-2.9); LYMPHOCYTES % 14.3 % (15.0-51.0); MEAN CORPUSCULAR HEMOGLOBIN 30.9 pg (29.0-33.0); MEAN CORPUSCULAR VOLUME 99.7 fl (82.0-101.0); MEAN PLATELET VOLUME 10.2 fl (7.4-10.4); MONOCYTE # 0.5 10^3/ul (0.3-0.9); MONOCYTES % 4.8 % (0.0-11.0); NEUTROPHIL # 7.5 10^3/ul (1.6-7.5); NEUTROPHILS % 78.9 % (39.0-77.0); PLATELET COUNT 174 10^3/UL (140-415); RED BLOOD COUNT 3.75 10^6/ul (4.20-5.40); RED CELL DISTRIBUTION WIDTH 14.6 % (11.5-14.5); WHITE BLOOD COUNT 9.5 10^3/ul (4.8-10.8)
[2016-09-18 08:38] LABS: INR 0.97; PROTIME 12.9 Sec (12.2-14.2)
[2016-09-18 08:39] LABS: PARTIAL THROMBOPLASTIN TIME 31.5 Sec (25.0-35.0)
[2016-09-18 08:40] LABS: ALBUMIN 4.5 g/dl (3.3-4.9); ALBUMIN/GLOBULIN RATIO 1.73; CREATININE 6.8 mg/dl (0.44-1.00); POTASSIUM 5.4 mmol/L (3.5-5.1); TOTAL PROTEIN 7.1 g/dl (6.1-8.1)
[2016-09-18] MEDS: GABAPENTIN 100 MG CAP PO SCH ×2 (08:48→20:58)
[2016-09-18] MEDS: CALCITRIOL 0.25 MCG CAP PO SCH (08:48)
[2016-09-18] MEDS: CALCIUM ACETATE 667 MG CAP PO SCH ×3 (08:49→17:18)
[2016-09-18] MEDS: INSULIN ASPART [NOVOLOG] 3 ML PEN SC SCH ×7 (08:50→20:58)
[2016-09-18] MEDS: AMLODIPINE 5 MG TAB PO SCH (08:52)
[2016-09-18] MEDS: SALMETEROL/FLUTICASONE 250/50 INHA INH SCH ×2 (08:53→20:57)
[2016-09-18] MEDS: LOSARTAN 50 MG TAB PO SCH (08:54)
[2016-09-18] MEDS: L ACIDOPHIL/B LACTIS/B LONGUM CAPSULE PO SCH ×3 (09:00→20:59)
--- NOTE | 2016-09-18 09:09 | RADRPT ---
PROCEDURE: Lumbar spine series CLINICAL INDICATION: Back pain TECHNIQUE: 2 views of the lumbar spine are available for review COMPARISON: None available FINDINGS: The normal lumbar lordosis is preserved. There is subtle dextroscoliosis of the lumbar spine. Alig nment is otherwise intact. No acute fracture or dislocation is seen. Vertebral body heights are well maintained. There is mild disk height loss at L4-L5 with small anterior osteophytes.. [place] s soft tissues are grossly unremarkable. IMPRESSION: 1. Minimal degenerative change of the lower lumbar spine. 2. Subtle dextroscoliosis. RPTAT: KK .Taye Gonzalez MD, MD Date Time Electronically viewed and signed by .Taye Gonzalez MD, on 09/18/2016 09:09 .B/
--- NOTE | 2016-09-18 09:09 | RADRPT ---
PROCEDURE: Chest radiograph series. CLINICAL INDICATION: Weakness TECHNIQUE: PA and lateral chest x-ray. COMPARISON: Chest radiograph 09/16/2016 FINDINGS: The heart is enlarged. Atherosclerotic calcifications are present. There is left greater than right basilar atelectasis/scarring. No confluent or lobar infiltrate is seen. The osseous structures are unremarkable. IMPRESSION: 1. Left greater than right basilar atelectasis/scarring. 2. Atherosclerotic vascular disease. RPTAT: KK .Taye Gonzalez MD, MD Date Time Electronically viewed and signed by .Taye Gonzalez MD, on 09/18/2016 09:08 .B/
--- NOTE | 2016-09-18 11:12 | PN ---
Date/Time of Note Date/Time of Note DATE: 09/18/16 TIME: 11:09 Assessment/Plan VTE Prophylaxis VTE Prophylaxis Intervention: SCD's Lines/Catheters IV Catheter Type (from Nrsg): Saline Lock Assessment/Plan Assessment/Plan 1. acute on chronic abd pain, inability to tolerate PO- 2/2 diabetic gastroparesis 2. End-stage renal disease.on HD, Followed up by 3. Diabetes. Continue home insulin regimen. 4. Hypertension. Continue home medications. 5. Prophylaxis: SCDs. X ray chest negative for rib fracture X ray LS spine negative for acute findings Kayexalate 30 gramm PO X 1 dose today HD as pre nephrology reglan 5mg pO TID with each meal Subjective 24 Hr Interval Summary Free Text/Dictation k high,c/oright rib pain, BP stable Exam/Review of Systems Vital Signs Vitals Vital Signs Date Time Temp Pulse Resp B/P Pulse Ox O2 Delivery O2 Flow Rate FiO2 09/18/16 08:05 69 09/18/16 07:45 20 92 21 09/18/16 07:26 98.3 114/52 09/17/16 20:34 2.0 09/17/16 20:00 Nasal Cannula Intake and Output 09/17/16 09/17/16 09/18/16 15:00 23:00 07:00 Intake Total 720 ml 500 ml Balance 720 ml 500 ml Exam GENERAL: Mild distress, alert and oriented. HEENT: Normocephalic, atraumatic. LUNGS: Clear to auscultation. CARDIOVASCULAR: Regular rate and rhythm. ABDOMEN: Nondistended, soft, tender to palpation. EXTREMITIES: No clubbing, cyanosis, or edema. Results Result Diagram: 09/18/16 0749 09/18/16 0749 Results 24 hrs Laboratory Tests Test 09/17/16 11:55 09/17/16 16:56 09/17/16 20:12 09/18/16 07:49 Bedside Glucose 165 104 99 White Blood Count 9.5 Red Blood Count 3.75 L Hemoglobin 11.6 L Hematocrit 37.4 Mean Corpuscular Volume 99.7 Mean Corpuscular Hemoglobin 30.9 Mean Corpuscular Hemoglobin Concent 31.0 L Red Cell Distribution Width 14.6 H Platelet Count 174 Mean Platelet Volume 10.2 Neutrophils % 78.9 H Lymphocytes % 14.3 L Monocytes % 4.8 Eosinophils % 1.2 Basophils % 0.5 Nucleated Red Blood Cells % 0.0 Neutrophils # 7.5 Lymphocytes # 1.4 Monocytes # 0.5 Eosinophils # 0.1 Basophils # 0.1 Nucleated Red Blood Cells # 0.0 Prothrombin Time 12.9 Prothrombin Time Ratio 1.0 INR International Normalized Ratio 0.97 Activated Partial Thromboplast Time 31.5 Sodium Level 137 Potassium Level 5.4 H Chloride Level 99 Carbon Dioxide Level 25 Anion Gap 18 H Blood Urea Nitrogen 47 #H Creatinine 6.80 #H Glucose Level 139 Calcium Level 8.0 L Total Bilirubin 0.0 L Direct Bilirubin 0.00 Indirect Bilirubin 0.0 Aspartate Amino Transf (AST/SGOT) 19 Alanine Aminotransferase (ALT/SGPT) 33 Alkaline Phosphatase 79 Total Protein 7.1 Albumin 4.5 Globulin 2.60 Albumin/Globulin Ratio 1.73 Test 09/18/16 08:48 Bedside Glucose 141 Medications Medications Current Medications Ondansetron HCl (Zofran Inj) 4 mg Q6H PRN IV NAUSEA AND/OR VOMITING; Start at 08:00 Acetaminophen (Tylenol Tab) 650 mg Q6H PRN PO PAIN LEVEL 1-3 OR FEVER; Start at 08:00 Acetaminophen/ Hydrocodone Bitart ([place] (5/325)) 1 tab Q6H PRN PO MODERATE PAIN LEVEL 4-6 Last administered on 09/17/16 09:44; Admin Dose 1 TAB; Start at 08:00 Morphine Sulfate (morphine) 2 mg Q4H PRN IV SEVERE PAIN LEVEL 7-10 Last administered on 09/17/16 03:19; Admin Dose 2 MG; Start 09/16/16 at 08:00 Docusate Sodium (Colace) 100 mg Q12H PRN PO CONSTIPATION; Start 09/16/16 at 08: 00 Magnesium Hydroxide (Milk Of Mag) 30 ml DAILY PRN PO CONSTIPATION; Start at 08:00 Zolpidem Tartrate (Ambien) 5 mg QHS PRN PO SLEEP; Start 09/16/16 at 08:00 Amlodipine Besylate (Norvasc) 5 mg DAILY PO Last administered on 09/18/16 08: 52; Admin Dose 5 MG; Start 09/16/16 at 09:00 Phenol (Cepastat Lozenge) 1 lozenge Q1H PRN MT COUGH; Start 09/16/16 at 08:00 Calcitriol (Rocaltrol) 0.25 mcg DAILY PO Last administered on 09/18/16 08:48; Admin Dose 0.25 MCG; Start 09/16/16 at 09:00 Carvedilol (Coreg) 12.5 mg BID PO Last administered on 09/18/16 08:53; Admin Dose 12.5 MG; Start 09/16/16 at 09:00 Hydralazine HCl (Apresoline) 25 mg Q8 PO Last administered on 09/18/16 06:15; Admin Dose 25 MG; Start 09/16/16 at 08:00 Losartan Potassium (Cozaar) 50 mg DAILY PO Last administered on 09/18/16 08:54 ; Admin Dose 50 MG; Start 09/16/16 at 09:00 Pantoprazole (Protonix Tab) 40 mg BID@18 PO Last administered on 09/18/16 06:15; Admin Dose 40 MG; Start 09/16/16 at 18:00 Salmeterol Xinafoate/ Fluticasone (Advair 250/50 Diskus) 1 inh BID INH Last administered on 09/18/16 08:53; Admin Dose 1 INH; Start 09/16/16 at 09:00 Tramadol HCl (Ultram) 50 mg BID PRN PO PAIN; Start 09/16/16 at 08:00 Lactobacillus Acidophilus (Florajen3 Capsule) 1 each BID PO Last administered on 09/18/16 11:01; Admin Dose 1 EACH; Start 09/16/16 at 09:00 Miscellaneous Information 1 ea NOTE XX ; Start 09/16/16 at 08:00 Glucose (Glutose) 15 gm Q15M PRN PO DECREASED GLUCOSE; Start 09/16/16 at 08:00 Glucose (Glutose) 22.5 gm Q15M PRN PO DECREASED GLUCOSE; Start 09/16/16 at 08: 00 Dextrose (D50w Syringe) 25 ml Q15M PRN IV DECREASED GLUCOSE Last administered on 09/16/16 13:50; Admin Dose 25 ML; Start 09/16/16 at 08:00 Dextrose (D50w Syringe) 50 ml Q15M PRN IV DECREASED GLUCOSE; Start 09/16/16 at 08:00 Glucagon (Glucagen) 1 mg Q15M PRN IM DECREASED GLUCOSE; Start 09/16/16 at 08:00 Glucose (Glutose) 15 gm Q15M PRN BUCCAL DECREASED GLUCOSE; Start 09/16/16 at 08 :00 Insulin Glargine (Lantus) 15 unit DAILY@20 SC Last administered on 09/17/16 20 :17; Admin Dose 15 UNIT; Start 09/16/16 at 20:00 Gabapentin (Neurontin) 100 mg BID PO Last administered on 09/18/16 08:48; Admin Dose 100 MG; Start 09/17/16 at 09:00 Diagnostic Test (Pha) (Accu-Chek) 1 ea 02 XX ; Start 09/18/16 at 02:00 DORON HUIZAR MD Sep 18, 2016 11:12
[2016-09-18] MEDS ORDERED: NA POLYST SULFON 15 GM/60 ML BTL PO ONE (11:30)
[2016-09-18] MEDS: morphine 2 MG INJ IV PRN (14:37)
[2016-09-18] MEDS: INSULIN GLARGINE [LANtus] 3 ML PEN SC SCH (20:00)
[2016-09-18] MEDS: traMADol 50 MG TAB PO PRN (21:47)
--- NOTE | 2016-09-18 22:30 | CONS ---
Date/Time of Note Date/Time of Note DATE: 09/18/16 TIME: 22:30 Assessment/Plan Assessment/Plan Chief Complaint/Hosp Course Pt had HD today Problems: Consultation Date/Type/Reason Admit Date/Time Sep 16, 2016 at 07:51 Initial Consult Date 09/16/16 Exam/Review of Systems Vital Signs Vitals Vital Signs Date Time Temp Pulse Resp B/P Pulse Ox O2 Delivery O2 Flow Rate FiO2 09/18/16 22:07 Nasal Cannula 2.0 09/18/16 20:36 21 09/18/16 20:36 70 16 94 09/18/16 19:55 100.0 159/69 Intake and Output 09/17/16 09/17/16 09/18/16 15:00 23:00 07:00 Intake Total 720 ml 500 ml Balance 720 ml 500 ml Results Result Diagram: 09/18/16 0749 09/18/16 0749 Results 24 hrs Laboratory Tests Test 09/18/16 07:49 09/18/16 08:48 09/18/16 12:22 09/18/16 17:17 White Blood Count 9.5 Red Blood Count 3.75 L Hemoglobin 11.6 L Hematocrit 37.4 Mean Corpuscular Volume 99.7 Mean Corpuscular Hemoglobin 30.9 Mean Corpuscular Hemoglobin Concent 31.0 L Red Cell Distribution Width 14.6 H Platelet Count 174 Mean Platelet Volume 10.2 Neutrophils % 78.9 H Lymphocytes % 14.3 L Monocytes % 4.8 Eosinophils % 1.2 Basophils % 0.5 Nucleated Red Blood Cells % 0.0 Neutrophils # 7.5 Lymphocytes # 1.4 Monocytes # 0.5 Eosinophils # 0.1 Basophils # 0.1 Nucleated Red Blood Cells # 0.0 Prothrombin Time 12.9 Prothrombin Time Ratio 1.0 INR International Normalized Ratio 0.97 Activated Partial Thromboplast Time 31.5 Sodium Level 137 Potassium Level 5.4 H Chloride Level 99 Carbon Dioxide Level 25 Anion Gap 18 H Blood Urea Nitrogen 47 #H Creatinine 6.80 #H Glucose Level 139 Calcium Level 8.0 L Total Bilirubin 0.0 L Direct Bilirubin 0.00 Indirect Bilirubin 0.0 Aspartate Amino Transf (AST/SGOT) 19 Alanine Aminotransferase (ALT/SGPT) 33 Alkaline Phosphatase 79 Total Protein 7.1 Albumin 4.5 Globulin 2.60 Albumin/Globulin Ratio 1.73 Bedside Glucose 141 118 126 Test 09/18/16 20:56 Bedside Glucose 96 Medications Medications Current Medications Ondansetron HCl (Zofran Inj) 4 mg Q6H PRN IV NAUSEA AND/OR VOMITING; Start at 08:00 Acetaminophen (Tylenol Tab) 650 mg Q6H PRN PO PAIN LEVEL 1-3 OR FEVER; Start at 08:00 Acetaminophen/ Hydrocodone Bitart ([place] (5/325)) 1 tab Q6H PRN PO MODERATE PAIN LEVEL 4-6 Last administered on 09/17/16 09:44; Admin Dose 1 TAB; Start at 08:00 Morphine Sulfate (morphine) 2 mg Q4H PRN IV SEVERE PAIN LEVEL 7-10 Last administered on 09/18/16 14:37; Admin Dose 2 MG; Start 09/16/16 at 08:00 Docusate Sodium (Colace) 100 mg Q12H PRN PO CONSTIPATION; Start 09/16/16 at 08: 00 Magnesium Hydroxide (Milk Of Mag) 30 ml DAILY PRN PO CONSTIPATION; Start at 08:00 Zolpidem Tartrate (Ambien) 5 mg QHS PRN PO SLEEP; Start 09/16/16 at 08:00 Amlodipine Besylate (Norvasc) 5 mg DAILY PO Last administered on 09/18/16 08: 52; Admin Dose 5 MG; Start 09/16/16 at 09:00 Phenol (Cepastat Lozenge) 1 lozenge Q1H PRN MT COUGH; Start 09/16/16 at 08:00 Calcitriol (Rocaltrol) 0.25 mcg DAILY PO Last administered on 09/18/16 08:48; Admin Dose 0.25 MCG; Start 09/16/16 at 09:00 Carvedilol (Coreg) 12.5 mg BID PO Last administered on 09/18/16 20:58; Admin Dose 12.5 MG; Start 09/16/16 at 09:00 Hydralazine HCl (Apresoline) 25 mg Q8 PO Last administered on 09/18/16 21:47; Admin Dose 25 MG; Start 09/16/16 at 08:00 Losartan Potassium (Cozaar) 50 mg DAILY PO Last administered on 09/18/16 08:54 ; Admin Dose 50 MG; Start 09/16/16 at 09:00 Pantoprazole (Protonix Tab) 40 mg BID@06,18 PO Last administered on 09/18/16 17:18; Admin Dose 40 MG; Start 09/16/16 at 18:00 Salmeterol Xinafoate/ Fluticasone (Advair 250/50 Diskus) 1 inh BID INH Last administered on 09/18/16 20:57; Admin Dose 1 INH; Start 09/16/16 at 09:00 Tramadol HCl (Ultram) 50 mg BID PRN PO PAIN Last administered on 09/18/16 21: 47; Admin Dose 50 MG; Start 09/16/16 at 08:00 Lactobacillus Acidophilus (Florajen3 Capsule) 1 each BID PO Last administered on 09/18/16 20:59; Admin Dose 1 EACH; Start 09/16/16 at 09:00 Miscellaneous Information 1 ea NOTE XX ; Start 09/16/16 at 08:00 Glucose (Glutose) 15 gm Q15M PRN PO DECREASED GLUCOSE; Start 09/16/16 at 08:00 Glucose (Glutose) 22.5 gm Q15M PRN PO DECREASED GLUCOSE; Start 09/16/16 at 08: 00 Dextrose (D50w Syringe) 25 ml Q15M PRN IV DECREASED GLUCOSE Last administered on 09/16/16 13:50; Admin Dose 25 ML; Start 09/16/16 at 08:00 Dextrose (D50w Syringe) 50 ml Q15M PRN IV DECREASED GLUCOSE; Start 09/16/16 at 08:00 Glucagon (Glucagen) 1 mg Q15M PRN IM DECREASED GLUCOSE; Start 09/16/16 at 08:00 Glucose (Glutose) 15 gm Q15M PRN BUCCAL DECREASED GLUCOSE; Start 09/16/16 at 08 :00 Insulin Glargine (Lantus) 15 unit DAILY@20 SC Last administered on 09/18/16 20 :00; Admin Dose 15 UNIT; Start 09/16/16 at 20:00 Gabapentin (Neurontin) 100 mg BID PO Last administered on 09/18/16 20:58; Admin Dose 100 MG; Start 09/17/16 at 09:00 Diagnostic Test (Pha) (Accu-Chek) 1 ea 02 XX ; Start 09/18/16 at 02:00 GEOFFREY PAT MD Sep 18, 2016 22:30
[2016-09-19] VITALS (10 sets, daily range): BP systolic 123–155; BP diastolic 53–72; PULSE 82–102; RESP 18–21
[2016-09-19] MEDS: ACCU-CHEK XX SCH (02:00)
[2016-09-19] MEDS: traMADol 50 MG TAB PO PRN (02:46)
[2016-09-19] MEDS ORDERED: IBUPROFEN 600 MG TAB PO ONE (03:00)
[2016-09-19] MEDS ORDERED: DIPHENHYDRAMINE 25 MG CAP PO ONE (03:00)
[2016-09-19] MEDS: PANTOPRAZOLE (EC) 40 MG TAB PO SCH ×2 (05:23→18:08)
[2016-09-19 06:00] LABS: ADD SCAN DIFF NO
[2016-09-19 06:20] LABS: BASOPHILS % 0.4 % (0.0-2.0); EOSINOPHILS # 0.1 10^3/ul (0.0-0.5); EOSINOPHILS % 1.1 % (0.0-7.0); HEMATOCRIT 33.8 % (37.0-47.0); HEMOGLOBIN 10.6 g/dl (12.0-16.0); LYMPHOCYTES # 1.8 10^3/ul (0.8-2.9); LYMPHOCYTES % 16.6 % (15.0-51.0); MEAN CORPUSCULAR HEMOGLOBIN 30.8 pg (29.0-33.0); MEAN CORPUSCULAR HGB CONC 31.4 g/dl (32.0-37.0); MEAN CORPUSCULAR VOLUME 98.3 fl (82.0-101.0); MEAN PLATELET VOLUME 10.3 fl (7.4-10.4); MONOCYTE # 0.5 10^3/ul (0.3-0.9); MONOCYTES % 4.7 % (0.0-11.0); NEUTROPHIL # 8.3 10^3/ul (1.6-7.5); NEUTROPHILS % 76.8 % (39.0-77.0); PLATELET COUNT 173 10^3/UL (140-415); RED BLOOD COUNT 3.44 10^6/ul (4.20-5.40); RED CELL DISTRIBUTION WIDTH 14.7 % (11.5-14.5); WHITE BLOOD COUNT 10.8 10^3/ul (4.8-10.8)
[2016-09-19 06:30] LABS: PROTIME 13.2 Sec (12.2-14.2)
[2016-09-19 06:31] LABS: PARTIAL THROMBOPLASTIN TIME 32.4 Sec (25.0-35.0)
[2016-09-19 07:07] LABS: CALCIUM 7.7 mg/dl (8.4-10.2); CREATININE 7.87 mg/dl (0.44-1.00); POTASSIUM 4.6 mmol/L (3.5-5.1)
[2016-09-19] MEDS: INSULIN ASPART [NOVOLOG] 3 ML PEN SC SCH ×7 (08:00→20:59)
[2016-09-19] MEDS: ALBUTEROL/IPRATROPIUM (NEB) 3 ML AMP NEB SCH ×4 (08:00→19:12)
[2016-09-19] MEDS: GABAPENTIN 100 MG CAP PO SCH ×2 (08:18→21:03)
[2016-09-19] MEDS: CALCIUM ACETATE 667 MG CAP PO SCH ×3 (08:18→18:07)
[2016-09-19] MEDS: SALMETEROL/FLUTICASONE 250/50 INHA INH SCH ×2 (08:22→21:01)
[2016-09-19] MEDS: LOSARTAN 50 MG TAB PO SCH (08:23)
[2016-09-19] MEDS: AMLODIPINE 5 MG TAB PO SCH (08:23)
[2016-09-19] MEDS: CALCITRIOL 0.25 MCG CAP PO SCH ×2 (09:00→18:08)
[2016-09-19] MEDS: L ACIDOPHIL/B LACTIS/B LONGUM CAPSULE PO SCH ×2 (12:14→21:03)
--- NOTE | 2016-09-19 13:12 | PN ---
Date/Time of Note Date/Time of Note DATE: 09/19/16 TIME: 13:10 Assessment/Plan VTE Prophylaxis VTE Prophylaxis Intervention: SCD's Lines/Catheters IV Catheter Type (from Nrsg): Saline Lock Urinary Cath still in place: No Assessment/Plan Assessment/Plan 1. acute on chronic abd pain, inability to tolerate PO- 2/2 diabetic gastroparesis 2. End-stage renal disease.on HD, Followed up by 3. Diabetes. Continue home insulin regimen. 4. Hypertension. Continue home medications. 5. Prophylaxis: SCDs. X ray chest negative for rib fracture X ray LS spine negative for acute findings Kayexalate 30 gramm PO X 1 dose give yesterday, today K 4.6 HD as pre nephrology Dr.Dua vazquez 5mg pO TID with each meal pt follows at [facility] for her Primary care, d/c planning in next 1-2 days Subjective 24 Hr Interval Summary Free Text/Dictation s/p kayexalate yesterday, BP stable, afebrile, HD as per nephrology Exam/Review of Systems Vital Signs Vitals Vital Signs Date Time Temp Pulse Resp B/P Pulse Ox O2 Delivery O2 Flow Rate FiO2 09/19/16 12:19 93 09/19/16 07:51 98.9 89 20 145/63 09/18/16 22:07 Nasal Cannula 2.0 09/18/16 20:36 21 Intake and Output 09/18/16 09/18/16 09/19/16 15:00 23:00 07:00 Intake Total 1000 ml 650 ml Balance 1000 ml 650 ml Exam GENERAL: Mild distress, alert and oriented. HEENT: Normocephalic, atraumatic. LUNGS: Clear to auscultation. CARDIOVASCULAR: Regular rate and rhythm. ABDOMEN: Nondistended, soft, tender to palpation. EXTREMITIES: No clubbing, cyanosis, or edema. Results Result Diagram: 09/19/16 0515 09/19/16 0515 Results 24 hrs Laboratory Tests Test 09/18/16 17:17 09/18/16 20:56 09/19/16 05:15 09/19/16 08:14 Bedside Glucose 126 96 119 White Blood Count 10.8 Red Blood Count 3.44 L Hemoglobin 10.6 L Hematocrit 33.8 L Mean Corpuscular Volume 98.3 Mean Corpuscular Hemoglobin 30.8 Mean Corpuscular Hemoglobin Concent 31.4 L Red Cell Distribution Width 14.7 H Platelet Count 173 Mean Platelet Volume 10.3 Neutrophils % 76.8 Lymphocytes % 16.6 Monocytes % 4.7 Eosinophils % 1.1 Basophils % 0.4 Nucleated Red Blood Cells % 0.0 Neutrophils # 8.3 H Lymphocytes # 1.8 Monocytes # 0.5 Eosinophils # 0.1 Basophils # 0.0 Nucleated Red Blood Cells # 0.0 Prothrombin Time 13.2 Prothrombin Time Ratio 1.0 INR International Normalized Ratio 1.00 Activated Partial Thromboplast Time 32.4 Sodium Level 138 Potassium Level 4.6 Chloride Level 99 Carbon Dioxide Level 23 Anion Gap 21 H Blood Urea Nitrogen 70 H Creatinine 7.87 H Glucose Level 126 Calcium Level 7.7 L Test 09/19/16 12:07 Bedside Glucose 163 Medications Medications Current Medications Ondansetron HCl (Zofran Inj) 4 mg Q6H PRN IV NAUSEA AND/OR VOMITING; Start at 08:00 Acetaminophen/ Hydrocodone Bitart ([place] (5/325)) 1 tab Q6H PRN PO MODERATE PAIN LEVEL 4-6 Last administered on 09/17/16 09:44; Admin Dose 1 TAB; Start at 08:00 Morphine Sulfate (morphine) 2 mg Q4H PRN IV SEVERE PAIN LEVEL 7-10 Last administered on 09/18/16 14:37; Admin Dose 2 MG; Start 09/16/16 at 08:00 Docusate Sodium (Colace) 100 mg Q12H PRN PO CONSTIPATION; Start 09/16/16 at 08: 00 Magnesium Hydroxide (Milk Of Mag) 30 ml DAILY PRN PO CONSTIPATION; Start at 08:00 Zolpidem Tartrate (Ambien) 5 mg QHS PRN PO SLEEP Last administered on 03:23; Admin Dose 5 MG; Start 09/16/16 at 08:00 Amlodipine Besylate (Norvasc) 5 mg DAILY PO Last administered on 09/18/16 08: 52; Admin Dose 5 MG; Start 09/16/16 at 09:00 Phenol (Cepastat Lozenge) 1 lozenge Q1H PRN MT COUGH; Start 09/16/16 at 08:00 Calcitriol (Rocaltrol) 0.25 mcg DAILY PO Last administered on 09/18/16 08:48; Admin Dose 0.25 MCG; Start 09/16/16 at 09:00 Carvedilol (Coreg) 12.5 mg BID PO Last administered on 09/18/16 20:58; Admin Dose 12.5 MG; Start 09/16/16 at 09:00 Hydralazine HCl (Apresoline) 25 mg Q8 PO Last administered on 09/19/16 05:24; Admin Dose 25 MG; Start 09/16/16 at 08:00 Losartan Potassium (Cozaar) 50 mg DAILY PO Last administered on 09/18/16 08:54 ; Admin Dose 50 MG; Start 09/16/16 at 09:00 Pantoprazole (Protonix Tab) 40 mg BID@ PO Last administered on 09/19/16 05:23; Admin Dose 40 MG; Start 09/16/16 at 18:00 Salmeterol Xinafoate/ Fluticasone (Advair 250/50 Diskus) 1 inh BID INH Last administered on 09/19/16 08:22; Admin Dose 1 INH; Start 09/16/16 at 09:00 Tramadol HCl (Ultram) 50 mg BID PRN PO PAIN Last administered on 09/18/16 21: 47; Admin Dose 50 MG; Start 09/16/16 at 08:00 Lactobacillus Acidophilus (Florajen3 Capsule) 1 each BID PO Last administered on 09/19/16 12:14; Admin Dose 1 EACH; Start 09/16/16 at 09:00 Miscellaneous Information 1 ea NOTE XX ; Start 09/16/16 at 08:00 Glucose (Glutose) 15 gm Q15M PRN PO DECREASED GLUCOSE; Start 09/16/16 at 08:00 Glucose (Glutose) 22.5 gm Q15M PRN PO DECREASED GLUCOSE; Start 09/16/16 at 08: 00 Dextrose (D50w Syringe) 25 ml Q15M PRN IV DECREASED GLUCOSE Last administered on 09/16/16 13:50; Admin Dose 25 ML; Start 09/16/16 at 08:00 Dextrose (D50w Syringe) 50 ml Q15M PRN IV DECREASED GLUCOSE; Start 09/16/16 at 08:00 Glucagon (Glucagen) 1 mg Q15M PRN IM DECREASED GLUCOSE; Start 09/16/16 at 08:00 Glucose (Glutose) 15 gm Q15M PRN BUCCAL DECREASED GLUCOSE; Start 09/16/16 at 08 :00 Insulin Glargine (Lantus) 15 unit DAILY@20 SC Last administered on 09/18/16 20 :00; Admin Dose 15 UNIT; Start 09/16/16 at 20:00 Gabapentin (Neurontin) 100 mg BID PO Last administered on 09/19/16 08:18; Admin Dose 100 MG; Start 09/17/16 at 09:00 Diagnostic Test (Pha) (Accu-Chek) 1 ea 02 XX ; Start 09/18/16 at 02:00 DORON HUIZAR MD Sep 19, 2016 13:11
--- NOTE | 2016-09-19 17:07 | CONS ---
Date/Time of Note Date/Time of Note DATE: 09/19/16 TIME: 17:05 Assessment/Plan Assessment/Plan Additional Assessment/Plan 1. Acute on chronic abd pain , diabetic gastroparesis 2. End-stage renal disease.on HD 3. Diabetes. 4. Hypertension. 5. Anemia, ESRD On HD, Cont current Treatment and plan Cont maintenance HD schedule 3 x week Add LUKE with HD Consultation Date/Type/Reason Admit Date/Time Sep 16, 2016 at 07:51 Initial Consult Date Type of Consultation: Renal 24 HR Interval Summary Free Text/Dictation Seen and examined on HD, No new complaints Exam/Review of Systems Vital Signs Vitals Vital Signs Date Time Temp Pulse Resp B/P Pulse Ox O2 Delivery O2 Flow Rate FiO2 09/19/16 15:20 86 09/19/16 14:50 20 09/19/16 12:19 93 09/19/16 07:51 98.9 145/63 09/18/16 22:07 Nasal Cannula 2.0 09/18/16 20:36 21 Intake and Output 09/18/16 09/18/16 09/19/16 15:00 23:00 07:00 Intake Total 1000 ml 650 ml Balance 1000 ml 650 ml Exam Constitutional: alert, No distress ENMT: mucosa pink and moist Neck: No jvd Respiratory: clear to auscultation, No labored breathing Cardiovascular: regular rate and rhythm, No edema Gastrointestinal: soft, tender, No distended, No rebound or guarding Musculoskeletal: nl extremities to inspection Extremities: No cyanosis Neurological: EPIC WILLOW ANALYST II-XII intact, nl mental status, nl speech, nl strength Skin: No diaphoresis Results Result Diagram: 09/19/16 0515 09/19/16 0515 Results 24 hrs Laboratory Tests Test 09/18/16 17:17 09/18/16 20:56 09/19/16 05:15 09/19/16 08:14 Bedside Glucose 126 96 119 White Blood Count 10.8 Red Blood Count 3.44 L Hemoglobin 10.6 L Hematocrit 33.8 L Mean Corpuscular Volume 98.3 Mean Corpuscular Hemoglobin 30.8 Mean Corpuscular Hemoglobin Concent 31.4 L Red Cell Distribution Width 14.7 H Platelet Count 173 Mean Platelet Volume 10.3 Neutrophils % 76.8 Lymphocytes % 16.6 Monocytes % 4.7 Eosinophils % 1.1 Basophils % 0.4 Nucleated Red Blood Cells % 0.0 Neutrophils # 8.3 H Lymphocytes # 1.8 Monocytes # 0.5 Eosinophils # 0.1 Basophils # 0.0 Nucleated Red Blood Cells # 0.0 Prothrombin Time 13.2 Prothrombin Time Ratio 1.0 INR International Normalized Ratio 1.00 Activated Partial Thromboplast Time 32.4 Sodium Level 138 Potassium Level 4.6 Chloride Level 99 Carbon Dioxide Level 23 Anion Gap 21 H Blood Urea Nitrogen 70 H Creatinine 7.87 H Glucose Level 126 Calcium Level 7.7 L Test 09/19/16 12:07 Bedside Glucose 163 Medications Medications Current Medications Ondansetron HCl (Zofran Inj) 4 mg Q6H PRN IV NAUSEA AND/OR VOMITING; Start at 08:00 Acetaminophen/ Hydrocodone Bitart ([place] (5/325)) 1 tab Q6H PRN PO MODERATE PAIN LEVEL 4-6 Last administered on 09/17/16 09:44; Admin Dose 1 TAB; Start at 08:00 Morphine Sulfate (morphine) 2 mg Q4H PRN IV SEVERE PAIN LEVEL 7-10 Last administered on 09/18/16 14:37; Admin Dose 2 MG; Start 09/16/16 at 08:00 Docusate Sodium (Colace) 100 mg Q12H PRN PO CONSTIPATION; Start 09/16/16 at 08: 00 Magnesium Hydroxide (Milk Of Mag) 30 ml DAILY PRN PO CONSTIPATION; Start at 08:00 Zolpidem Tartrate (Ambien) 5 mg QHS PRN PO SLEEP Last administered on 03:23; Admin Dose 5 MG; Start 09/16/16 at 08:00 Amlodipine Besylate (Norvasc) 5 mg DAILY PO Last administered on 09/18/16 08: 52; Admin Dose 5 MG; Start 09/16/16 at 09:00 Phenol (Cepastat Lozenge) 1 lozenge Q1H PRN MT COUGH; Start 09/16/16 at 08:00 Calcitriol (Rocaltrol) 0.25 mcg DAILY PO Last administered on 09/18/16 08:48; Admin Dose 0.25 MCG; Start 09/16/16 at 09:00 Carvedilol (Coreg) 12.5 mg BID PO Last administered on 09/18/16 20:58; Admin Dose 12.5 MG; Start 09/16/16 at 09:00 Hydralazine HCl (Apresoline) 25 mg Q8 PO Last administered on 09/19/16 05:24; Admin Dose 25 MG; Start 09/16/16 at 08:00 Losartan Potassium (Cozaar) 50 mg DAILY PO Last administered on 09/18/16 08:54 ; Admin Dose 50 MG; Start 09/16/16 at 09:00 Pantoprazole (Protonix Tab) 40 mg BID@06,18 PO Last administered on 09/19/16 05:23; Admin Dose 40 MG; Start 09/16/16 at 18:00 Salmeterol Xinafoate/ Fluticasone (Advair 250/50 Diskus) 1 inh BID INH Last administered on 09/19/16 08:22; Admin Dose 1 INH; Start 09/16/16 at 09:00 Tramadol HCl (Ultram) 50 mg BID PRN PO PAIN Last administered on 09/18/16 21: 47; Admin Dose 50 MG; Start 09/16/16 at 08:00 Lactobacillus Acidophilus (Florajen3 Capsule) 1 each BID PO Last administered on 09/19/16 12:14; Admin Dose 1 EACH; Start 09/16/16 at 09:00 Miscellaneous Information 1 ea NOTE XX ; Start 09/16/16 at 08:00 Glucose (Glutose) 15 gm Q15M PRN PO DECREASED GLUCOSE; Start 09/16/16 at 08:00 Glucose (Glutose) 22.5 gm Q15M PRN PO DECREASED GLUCOSE; Start 09/16/16 at 08: 00 Dextrose (D50w Syringe) 25 ml Q15M PRN IV DECREASED GLUCOSE Last administered on 09/16/16 13:50; Admin Dose 25 ML; Start 09/16/16 at 08:00 Dextrose (D50w Syringe) 50 ml Q15M PRN IV DECREASED GLUCOSE; Start 09/16/16 at 08:00 Glucagon (Glucagen) 1 mg Q15M PRN IM DECREASED GLUCOSE; Start 09/16/16 at 08:00 Glucose (Glutose) 15 gm Q15M PRN BUCCAL DECREASED GLUCOSE; Start 09/16/16 at 08 :00 Insulin Glargine (Lantus) 15 unit DAILY@20 SC Last administered on 09/18/16 20 :00; Admin Dose 15 UNIT; Start 09/16/16 at 20:00 Gabapentin (Neurontin) 100 mg BID PO Last administered on 09/19/16 08:18; Admin Dose 100 MG; Start 09/17/16 at 09:00 Diagnostic Test (Pha) (Accu-Chek) 1 ea 02 XX ; Start 09/18/16 at 02:00 Procedures Procedures PROCEDURE: Chest radiograph series. CLINICAL INDICATION: Weakness TECHNIQUE: PA and lateral chest x-ray. COMPARISON: Chest radiograph 09/16/2016 FINDINGS: The heart is enlarged. Atherosclerotic calcifications are present. There is left greater than right basilar atelectasis/scarring. No confluent or lobar infiltrate is seen. The osseous structures are unremarkable. IMPRESSION: 1. Left greater than right basilar atelectasis/scarring. 2. Atherosclerotic vascular disease. RPTAT: KK .Taye Gonzalez MD, MD Date Time Electronically viewed and signed by .Taye Gonzalez MD, on 2016 09:08 GIANNA HAMPTON MD Sep 19, 2016 17:07
[2016-09-19] MEDS ORDERED: EPOETIN 4000 UNITS/1 ML INJ (ESRD) SC SCH (17:30)
[2016-09-19] MEDS: INSULIN GLARGINE [LANtus] 3 ML PEN SC SCH (21:01)
[2016-09-20] MEDS: ACCU-CHEK XX SCH (02:00)
[2016-09-20] MEDS: PANTOPRAZOLE (EC) 40 MG TAB PO SCH ×2 (05:03→17:06)
[2016-09-20 06:35] LABS: CALCIUM 8.2 mg/dl (8.4-10.2); CREATININE 5.69 mg/dl (0.44-1.00); POTASSIUM 4.9 mmol/L (3.5-5.1)
[2016-09-20] MEDS: traMADol 50 MG TAB PO PRN (07:48)
[2016-09-20] MEDS: ALBUTEROL/IPRATROPIUM (NEB) 3 ML AMP NEB SCH ×4 (07:57→19:37)
[2016-09-20] MEDS: CALCIUM ACETATE 667 MG CAP PO SCH ×3 (08:02→17:05)
[2016-09-20] MEDS: INSULIN ASPART [NOVOLOG] 3 ML PEN SC SCH ×7 (08:03→21:00)
[2016-09-20 08:17] VITALS: BP 126/60; RESP 74
[2016-09-20] MEDS: L ACIDOPHIL/B LACTIS/B LONGUM CAPSULE PO SCH ×2 (08:27→21:10)
[2016-09-20] MEDS: CALCITRIOL 0.25 MCG CAP PO SCH (08:27)
[2016-09-20] MEDS: SALMETEROL/FLUTICASONE 250/50 INHA INH SCH ×2 (08:27→21:10)
[2016-09-20] MEDS: GABAPENTIN 100 MG CAP PO SCH ×2 (08:27→21:10)
[2016-09-20] MEDS: LOSARTAN 50 MG TAB PO SCH (08:28)
[2016-09-20] MEDS: AMLODIPINE 5 MG TAB PO SCH (08:28)
[2016-09-20 21:04] VITALS: BP 151/66; RESP 18
[2016-09-20] MEDS: INSULIN GLARGINE [LANtus] 3 ML PEN SC SCH (21:11)
--- NOTE | 2016-09-20 22:01 | CONS ---
Date/Time of Note Date/Time of Note DATE: 09/20/16 TIME: 21:31 Assessment/Plan Assessment/Plan Chief Complaint/Hosp Course HD tomorrow, await SS plans Problems: Additional Assessment/Plan Course to date is reviewed Cont'd Hospitalization Reason: Spoke to sales activity manager re pt disposition, he ssaid he'd get back to me. Consultation Date/Type/Reason Admit Date/Time Sep 16, 2016 at 07:51 Initial Consult Date 09/16/16 Type of Consultation: Renal 24 HR Interval Summary Free Text/Dictation Pt is depressed because she's being evicted from her apartment Exam/Review of Systems Vital Signs Vitals Vital Signs Date Time Temp Pulse Resp B/P Pulse Ox O2 Delivery O2 Flow Rate FiO2 09/20/16 21:04 99.0 82 18 151/66 92 09/20/16 19:39 21 09/18/16 22:07 Nasal Cannula 2.0 Intake and Output 09/19/16 09/19/16 09/20/16 15:00 23:00 07:00 Intake Total 800 ml 480 ml Balance 800 ml 480 ml Exam No acute distress Constitutional: alert, obese, oriented, well developed Psych: nl mood/affect, no complaints Head: atraumatic, normocephalic Eyes: EOMI, PERRL, nl conjunctiva, nl lids, nl sclera ENMT: nl external ears & nose, nl lips & teeth, nl nasal mucosa & septum, other (Adentulus) Neck: non-tender, supple Respiratory: clear to auscultation, normal air movement Cardiovascular: nl pulses, regular rate and rhythm Gastrointestinal: nl liver, spleen, non-tender, soft Musculoskeletal: nl extremities to inspection, nl gait and stance Extremities: normal pulses, other (left arm avf bruit is present) Neurological: PRESS TENDER SHORT GOODS II-XII intact, nl mental status, nl speech, nl strength Skin: nl turgor, No rash or lesions Lymph: nl lymph nodes Results K is stable at 4.9 Result Diagram: 09/19/16 0515 09/20/16 0510 Results 24 hrs Laboratory Tests Test 09/20/16 05:10 09/20/16 07:56 09/20/16 11:59 09/20/16 17:02 Sodium Level 139 Potassium Level 4.9 Chloride Level 100 Carbon Dioxide Level 25 Anion Gap 19 H Blood Urea Nitrogen 48 #H Creatinine 5.69 #H Glucose Level 111 Calcium Level 8.2 L Bedside Glucose 142 152 104 Test 09/20/16 21:08 Bedside Glucose 173 Medications Medications Current Medications Ondansetron HCl (Zofran Inj) 4 mg Q6H PRN IV NAUSEA AND/OR VOMITING; Start at 08:00 Acetaminophen/ Hydrocodone Bitart ([place] (5/325)) 1 tab Q6H PRN PO MODERATE PAIN LEVEL 4-6 Last administered on 09/17/16 09:44; Admin Dose 1 TAB; Start at 08:00 Morphine Sulfate (morphine) 2 mg Q4H PRN IV SEVERE PAIN LEVEL 7-10 Last administered on 09/18/16 14:37; Admin Dose 2 MG; Start 09/16/16 at 08:00 Docusate Sodium (Colace) 100 mg Q12H PRN PO CONSTIPATION; Start 09/16/16 at 08: 00 Magnesium Hydroxide (Milk Of Mag) 30 ml DAILY PRN PO CONSTIPATION; Start at 08:00 Zolpidem Tartrate (Ambien) 5 mg QHS PRN PO SLEEP Last administered on 03:23; Admin Dose 5 MG; Start 09/16/16 at 08:00 Amlodipine Besylate (Norvasc) 5 mg DAILY PO Last administered on 09/20/16 08: 28; Admin Dose 5 MG; Start 09/16/16 at 09:00 Phenol (Cepastat Lozenge) 1 lozenge Q1H PRN MT COUGH; Start 09/16/16 at 08:00 Calcitriol (Rocaltrol) 0.25 mcg DAILY PO Last administered on 09/20/16 08:27; Admin Dose 0.25 MCG; Start 09/16/16 at 09:00 Carvedilol (Coreg) 12.5 mg BID PO Last administered on 09/20/16 21:10; Admin Dose 12.5 MG; Start 09/16/16 at 09:00 Hydralazine HCl (Apresoline) 25 mg Q8 PO Last administered on 09/20/16 21:11; Admin Dose 25 MG; Start 09/16/16 at 08:00 Losartan Potassium (Cozaar) 50 mg DAILY PO Last administered on 09/20/16 08:28 ; Admin Dose 50 MG; Start 09/16/16 at 09:00 Pantoprazole (Protonix Tab) 40 mg BID@06,18 PO Last administered on 09/20/16 17:06; Admin Dose 40 MG; Start 09/16/16 at 18:00 Salmeterol Xinafoate/ Fluticasone (Advair 250/50 Diskus) 1 inh BID INH Last administered on 09/20/16 21:10; Admin Dose 1 INH; Start 09/16/16 at 09:00 Tramadol HCl (Ultram) 50 mg BID PRN PO PAIN Last administered on 09/20/16 07: 48; Admin Dose 50 MG; Start 09/16/16 at 08:00 Lactobacillus Acidophilus (Florajen3 Capsule) 1 each BID PO Last administered on 09/20/16 21:10; Admin Dose 1 EACH; Start 09/16/16 at 09:00 Miscellaneous Information 1 ea NOTE XX ; Start 09/16/16 at 08:00 Glucose (Glutose) 15 gm Q15M PRN PO DECREASED GLUCOSE; Start 09/16/16 at 08:00 Glucose (Glutose) 22.5 gm Q15M PRN PO DECREASED GLUCOSE; Start 09/16/16 at 08: 00 Dextrose (D50w Syringe) 25 ml Q15M PRN IV DECREASED GLUCOSE Last administered on 09/16/16 13:50; Admin Dose 25 ML; Start 09/16/16 at 08:00 Dextrose (D50w Syringe) 50 ml Q15M PRN IV DECREASED GLUCOSE; Start 09/16/16 at 08:00 Glucagon (Glucagen) 1 mg Q15M PRN IM DECREASED GLUCOSE; Start 09/16/16 at 08:00 Glucose (Glutose) 15 gm Q15M PRN BUCCAL DECREASED GLUCOSE; Start 09/16/16 at 08 :00 Insulin Glargine (Lantus) 15 unit DAILY@20 SC Last administered on 09/20/16 21 :11; Admin Dose 15 UNIT; Start 09/16/16 at 20:00 Gabapentin (Neurontin) 100 mg BID PO Last administered on 09/20/16 21:10; Admin Dose 100 MG; Start 09/17/16 at 09:00 Diagnostic Test (Pha) (Accu-Chek) 1 ea 02 XX ; Start 09/18/16 at 02:00 GEOFFREY PAT MD Sep 20, 2016 22:01
--- NOTE | 2016-09-20 22:11 | PN ---
Date/Time of Note Date/Time of Note DATE: 09/20/16 TIME: 22:04 Assessment/Plan VTE Prophylaxis VTE Prophylaxis Intervention: SCD's Lines/Catheters IV Catheter Type (from Nrsg): Saline Lock Urinary Cath still in place: No Assessment/Plan Assessment/Plan 1. acute on chronic abd pain, inability to tolerate PO- 2/2 diabetic gastroparesis 2. End-stage renal disease.on HD, Followed up by 3. Diabetes. Continue home insulin regimen. 4. Hypertension. Continue home medications. 5. Prophylaxis: SCDs. X ray chest negative for rib fracture X ray LS spine negative for acute findings HD as pre nephrology reglan 5mg pO TID with each meal pt feelign depressed because she is beign evicted from her apartment, SW to see pt d/c planning in next 1-2 days Subjective 24 Hr Interval Summary Free Text/Dictation no acute events, BP stable Exam/Review of Systems Vital Signs Vitals Vital Signs Date Time Temp Pulse Resp B/P Pulse Ox O2 Delivery O2 Flow Rate FiO2 09/20/16 21:04 99.0 82 18 151/66 92 09/20/16 19:39 21 09/18/16 22:07 Nasal Cannula 2.0 Intake and Output 09/19/16 09/19/16 09/20/16 15:00 23:00 07:00 Intake Total 800 ml 480 ml Balance 800 ml 480 ml Exam GENERAL: Mild distress, alert and oriented. HEENT: Normocephalic, atraumatic. LUNGS: Clear to auscultation. CARDIOVASCULAR: Regular rate and rhythm. ABDOMEN: Nondistended, soft, tender to palpation. EXTREMITIES: No clubbing, cyanosis, or edema. Results Result Diagram: 09/19/16 0515 09/20/16 0510 Results 24 hrs Laboratory Tests Test 09/20/16 05:10 09/20/16 07:56 09/20/16 11:59 09/20/16 17:02 Sodium Level 139 Potassium Level 4.9 Chloride Level 100 Carbon Dioxide Level 25 Anion Gap 19 H Blood Urea Nitrogen 48 #H Creatinine 5.69 #H Glucose Level 111 Calcium Level 8.2 L Bedside Glucose 142 152 104 Test 09/20/16 21:08 Bedside Glucose 173 Medications Medications Current Medications Ondansetron HCl (Zofran Inj) 4 mg Q6H PRN IV NAUSEA AND/OR VOMITING; Start at 08:00 Acetaminophen/ Hydrocodone Bitart ([place] (5/325)) 1 tab Q6H PRN PO MODERATE PAIN LEVEL 4-6 Last administered on 09/17/16 09:44; Admin Dose 1 TAB; Start at 08:00 Morphine Sulfate (morphine) 2 mg Q4H PRN IV SEVERE PAIN LEVEL 7-10 Last administered on 09/18/16 14:37; Admin Dose 2 MG; Start 09/16/16 at 08:00 Docusate Sodium (Colace) 100 mg Q12H PRN PO CONSTIPATION; Start 09/16/16 at 08: 00 Magnesium Hydroxide (Milk Of Mag) 30 ml DAILY PRN PO CONSTIPATION; Start at 08:00 Zolpidem Tartrate (Ambien) 5 mg QHS PRN PO SLEEP Last administered on 03:23; Admin Dose 5 MG; Start 09/16/16 at 08:00 Amlodipine Besylate (Norvasc) 5 mg DAILY PO Last administered on 09/20/16 08: 28; Admin Dose 5 MG; Start 09/16/16 at 09:00 Phenol (Cepastat Lozenge) 1 lozenge Q1H PRN MT COUGH; Start 09/16/16 at 08:00 Calcitriol (Rocaltrol) 0.25 mcg DAILY PO Last administered on 09/20/16 08:27; Admin Dose 0.25 MCG; Start 09/16/16 at 09:00 Carvedilol (Coreg) 12.5 mg BID PO Last administered on 09/20/16 21:10; Admin Dose 12.5 MG; Start 09/16/16 at 09:00 Hydralazine HCl (Apresoline) 25 mg Q8 PO Last administered on 09/20/16 21:11; Admin Dose 25 MG; Start 09/16/16 at 08:00 Losartan Potassium (Cozaar) 50 mg DAILY PO Last administered on 09/20/16 08:28 ; Admin Dose 50 MG; Start 09/16/16 at 09:00 Pantoprazole (Protonix Tab) 40 mg BID@,18 PO Last administered on 09/20/16 17:06; Admin Dose 40 MG; Start 09/16/16 at 18:00 Salmeterol Xinafoate/ Fluticasone (Advair 250/50 Diskus) 1 inh BID INH Last administered on 09/20/16 21:10; Admin Dose 1 INH; Start 09/16/16 at 09:00 Tramadol HCl (Ultram) 50 mg BID PRN PO PAIN Last administered on 09/20/16 07: 48; Admin Dose 50 MG; Start 09/16/16 at 08:00 Lactobacillus Acidophilus (Florajen3 Capsule) 1 each BID PO Last administered on 09/20/16 21:10; Admin Dose 1 EACH; Start 09/16/16 at 09:00 Miscellaneous Information 1 ea NOTE XX ; Start 09/16/16 at 08:00 Glucose (Glutose) 15 gm Q15M PRN PO DECREASED GLUCOSE; Start 09/16/16 at 08:00 Glucose (Glutose) 22.5 gm Q15M PRN PO DECREASED GLUCOSE; Start 09/16/16 at 08: 00 Dextrose (D50w Syringe) 25 ml Q15M PRN IV DECREASED GLUCOSE Last administered on 09/16/16 13:50; Admin Dose 25 ML; Start 09/16/16 at 08:00 Dextrose (D50w Syringe) 50 ml Q15M PRN IV DECREASED GLUCOSE; Start 09/16/16 at 08:00 Glucagon (Glucagen) 1 mg Q15M PRN IM DECREASED GLUCOSE; Start 09/16/16 at 08:00 Glucose (Glutose) 15 gm Q15M PRN BUCCAL DECREASED GLUCOSE; Start 09/16/16 at 08 :00 Insulin Glargine (Lantus) 15 unit DAILY@20 SC Last administered on 09/20/16 21 :11; Admin Dose 15 UNIT; Start 09/16/16 at 20:00 Gabapentin (Neurontin) 100 mg BID PO Last administered on 09/20/16 21:10; Admin Dose 100 MG; Start 09/17/16 at 09:00 Diagnostic Test (Pha) (Accu-Chek) 1 ea 02 XX ; Start 09/18/16 at 02:00 DORON HUIZAR MD Sep 20, 2016 22:11
[2016-09-21] VITALS (8 sets, daily range): BP systolic 119–142; BP diastolic 58–74; PULSE 78–93; RESP 18
[2016-09-21] MEDS: ACCU-CHEK XX SCH (02:00)
[2016-09-21] MEDS: traMADol 50 MG TAB PO PRN (05:09)
[2016-09-21] MEDS: PANTOPRAZOLE (EC) 40 MG TAB PO SCH (05:10)
[2016-09-21] MEDS: ALBUTEROL/IPRATROPIUM (NEB) 3 ML AMP NEB SCH ×2 (08:00→12:58)
[2016-09-21] MEDS: CALCIUM ACETATE 667 MG CAP PO SCH ×2 (08:31→12:07)
[2016-09-21] MEDS: L ACIDOPHIL/B LACTIS/B LONGUM CAPSULE PO SCH (08:31)
[2016-09-21] MEDS: GABAPENTIN 100 MG CAP PO SCH (08:31)
[2016-09-21] MEDS: LOSARTAN 50 MG TAB PO SCH (08:32)
[2016-09-21] MEDS: AMLODIPINE 5 MG TAB PO SCH (08:33)
[2016-09-21] MEDS: SALMETEROL/FLUTICASONE 250/50 INHA INH SCH (08:33)
[2016-09-21] MEDS: INSULIN ASPART [NOVOLOG] 3 ML PEN SC SCH ×4 (08:35→12:09)
--- NOTE | 2016-09-21 09:27 | PN ---
Date/Time of Note Date/Time of Note DATE: 09/21/16 TIME: : Assessment/Plan VTE Prophylaxis VTE Prophylaxis Intervention: SCD's Lines/Catheters IV Catheter Type (from Nrsg): Saline Lock Urinary Cath still in place: No Assessment/Plan Assessment/Plan 1. acute on chronic abd pain, inability to tolerate PO- 2/2 diabetic gastroparesis 2. End-stage renal disease.on HD, Followed up by 3. Diabetes. Continue home insulin regimen. 4. Hypertension. Continue home medications. 5. Prophylaxis: SCDs. X ray chest negative for rib fracture X ray LS spine negative for acute findings HD as pre nephrology reglan 5mg pO TID with each meal pt feelign depressed because she is beign evicted from her apartment, SW to see pt possible d/c home today vs tomorrow Subjective 24 Hr Interval Summary Free Text/Dictation Bp stable, paln for HD today Exam/Review of Systems Vital Signs Vitals Vital Signs Date Time Temp Pulse Resp B/P Pulse Ox O2 Delivery O2 Flow Rate FiO2 09/21/16 08:40 99.0 83 18 135/58 93 09/20/16 19:39 21 09/18/16 22:07 Nasal Cannula 2.0 Intake and Output 09/20/16 09/20/16 09/21/16 15:00 23:00 07:00 Intake Total 750 ml 480 ml Balance 750 ml 480 ml Exam GENERAL: Mild distress, alert and oriented. HEENT: Normocephalic, atraumatic. LUNGS: Clear to auscultation. CARDIOVASCULAR: Regular rate and rhythm. ABDOMEN: Nondistended, soft, tender to palpation. EXTREMITIES: No clubbing, cyanosis, or edema. Results Result Diagram: 09/19/16 0515 09/20/16 0510 Results 24 hrs Laboratory Tests Test 09/20/16 11:59 09/20/16 17:02 09/20/16 21:08 09/21/16 08:01 Bedside Glucose 152 104 173 202 Medications Medications Current Medications Ondansetron HCl (Zofran Inj) 4 mg Q6H PRN IV NAUSEA AND/OR VOMITING; Start at 08:00 Acetaminophen/ Hydrocodone Bitart ([place] (5/325)) 1 tab Q6H PRN PO MODERATE PAIN LEVEL 4-6 Last administered on 09/17/16 09:44; Admin Dose 1 TAB; Start at 08:00 Morphine Sulfate (morphine) 2 mg Q4H PRN IV SEVERE PAIN LEVEL 7-10 Last administered on 09/18/16 14:37; Admin Dose 2 MG; Start 09/16/16 at 08:00 Docusate Sodium (Colace) 100 mg Q12H PRN PO CONSTIPATION; Start 09/16/16 at 08: 00 Magnesium Hydroxide (Milk Of Mag) 30 ml DAILY PRN PO CONSTIPATION; Start at 08:00 Zolpidem Tartrate (Ambien) 5 mg QHS PRN PO SLEEP Last administered on 03:23; Admin Dose 5 MG; Start 09/16/16 at 08:00 Amlodipine Besylate (Norvasc) 5 mg DAILY PO Last administered on 09/21/16 08: 33; Admin Dose 5 MG; Start 09/16/16 at 09:00 Phenol (Cepastat Lozenge) 1 lozenge Q1H PRN MT COUGH; Start 09/16/16 at 08:00 Calcitriol (Rocaltrol) 0.25 mcg DAILY PO Last administered on 09/20/16 08:27; Admin Dose 0.25 MCG; Start 09/16/16 at 09:00 Carvedilol (Coreg) 12.5 mg BID PO Last administered on 09/21/16 08:33; Admin Dose 12.5 MG; Start 09/16/16 at 09:00 Hydralazine HCl (Apresoline) 25 mg Q8 PO Last administered on 09/21/16 08:32; Admin Dose 25 MG; Start 09/16/16 at 08:00 Losartan Potassium (Cozaar) 50 mg DAILY PO Last administered on 09/21/16 08:32 ; Admin Dose 50 MG; Start 09/16/16 at 09:00 Pantoprazole (Protonix Tab) 40 mg BID@,18 PO Last administered on 09/21/16 05:10; Admin Dose 40 MG; Start 09/16/16 at 18:00 Salmeterol Xinafoate/ Fluticasone (Advair 250/50 Diskus) 1 inh BID INH Last administered on 09/21/16 08:33; Admin Dose 1 INH; Start 09/16/16 at 09:00 Tramadol HCl (Ultram) 50 mg BID PRN PO PAIN Last administered on 09/21/16 05: 09; Admin Dose 50 MG; Start 09/16/16 at 08:00 Lactobacillus Acidophilus (Florajen3 Capsule) 1 each BID PO Last administered on 09/21/16 08:31; Admin Dose 1 EACH; Start 09/16/16 at 09:00 Miscellaneous Information 1 ea NOTE XX ; Start 09/16/16 at 08:00 Glucose (Glutose) 15 gm Q15M PRN PO DECREASED GLUCOSE; Start 09/16/16 at 08:00 Glucose (Glutose) 22.5 gm Q15M PRN PO DECREASED GLUCOSE; Start 09/16/16 at 08: 00 Dextrose (D50w Syringe) 25 ml Q15M PRN IV DECREASED GLUCOSE Last administered on 09/16/16 13:50; Admin Dose 25 ML; Start 09/16/16 at 08:00 Dextrose (D50w Syringe) 50 ml Q15M PRN IV DECREASED GLUCOSE; Start 09/16/16 at 08:00 Glucagon (Glucagen) 1 mg Q15M PRN IM DECREASED GLUCOSE; Start 09/16/16 at 08:00 Glucose (Glutose) 15 gm Q15M PRN BUCCAL DECREASED GLUCOSE; Start 09/16/16 at 08 :00 Insulin Glargine (Lantus) 15 unit DAILY@20 SC Last administered on 09/20/16 21 :11; Admin Dose 15 UNIT; Start 09/16/16 at 20:00 Gabapentin (Neurontin) 100 mg BID PO Last administered on 09/21/16 08:31; Admin Dose 100 MG; Start 09/17/16 at 09:00 Diagnostic Test (Pha) (Accu-Chek) 1 ea 02 XX ; Start 09/18/16 at 02:00 DORON HUIZAR MD Sep 21, 2016 09:27
--- NOTE | 2016-09-21 09:28 | PDOCDIS ---
Discharge Instructions CONDITION Patient Condition: Good HOME CARE INSTRUCTIONS: Special Diet: 1800 ADA, RENAL DIET ACTIVITY: Activity Restrictions: Slowly Increase Activity Rest between Activity Avoid heavy lifting Avoid Heavy Housework FOLLOW UP/APPOINTMENTS Follow-up Plan follow up with his own PMD in 1-2 week after discharge. Follow up with HD unit for scheduled HD DORON HUIZAR MD Sep 21, 2016 09:28
[2016-09-21] MEDS ORDERED: LEVO500T10 PO (09:29)
--- NOTE | 2016-09-21 21:02 | CONS ---
Date/Time of Note Date/Time of Note DATE: 09/21/16 TIME: 20:57 Assessment/Plan Assessment/Plan Chief Complaint/Hosp Course HD tomorrow, await SS plans Problems: Additional Assessment/Plan DC Plans underway, pt will be seen as oupt in the dialysis ctr [facility]; problem remains Consultation Date/Type/Reason Admit Date/Time Sep 16, 2016 at 07:51 Initial Consult Date 09/16/16 Type of Consultation: Renal 24 HR Interval Summary Free Text/Dictation satble Constitutional: improved Exam/Review of Systems Vital Signs Vitals Vital Signs Date Time Temp Pulse Resp B/P Pulse Ox O2 Delivery O2 Flow Rate FiO2 09/21/16 08:40 99.0 83 18 135/58 93 09/20/16 19:39 21 09/18/16 22:07 Nasal Cannula 2.0 Intake and Output 09/20/16 09/20/16 09/21/16 15:00 23:00 07:00 Intake Total 750 ml 480 ml Balance 750 ml 480 ml Exam Constitutional: alert, obese Psych: nl mood/affect, no complaints Head: atraumatic, normocephalic Eyes: EOMI, PERRL, nl conjunctiva, nl lids, nl sclera ENMT: nl external ears & nose, nl lips & teeth, nl nasal mucosa & septum Neck: non-tender, supple Respiratory: clear to auscultation, normal air movement Cardiovascular: nl pulses, regular rate and rhythm Gastrointestinal: nl liver, spleen, non-tender, soft Musculoskeletal: nl extremities to inspection, nl gait and stance Extremities: normal pulses, other (AVF lt arm, bruit present) Neurological: COMPUTER APPLICATIONS INSTRUCTOR II-XII intact, nl mental status, nl speech, nl strength Skin: nl turgor, No rash or lesions Lymph: nl lymph nodes Results Hct stable, BS 111 Result Diagram: 09/19/16 0515 09/20/16 0510 Results 24 hrs Laboratory Tests Test 09/20/16 21:08 09/21/16 08:01 09/21/16 11:44 Bedside Glucose 173 202 136 GEOFFREY PAT MD Sep 21, 2016 21:02
--- NOTE | 2016-09-24 21:32 | DS ---
Date/Time of Note Date/Time of Note DATE: 09/24/16 TIME: 21:28 Discharge Summary Admission/Discharge Info Admit Date/Time Sep 16, 2016 at 07:51 Discharge Date/Time Sep 21, 2016 at 16:00 Discharge Diagnosis 1. acute on chronic abd pain, inability to tolerate PO- 2/2 diabetic gastroparesis 2. End-stage renal disease.on HD 3. Diabetes melitus 4. Hypertension. Patient Condition: Good Consults Nephrology Consult Dr.Sohan Espinal Hx of Present Illness 61-year-old female with history of end-stage renal disease on dialysis Saturday, Saturday, and Saturday for the past 2 years. The patient has a history of asthma , type 2 diabetes, hypertension. The patient states that for the past approximately a year she has been having difficulty eating with nausea. She states that as of 2 days ago she has been feeling extremely weak, unable to ambulate. She did receive her dialysis as normal on Saturday but continued to feel weak and came to the ED for further evaluation. In the ER, the patient's workup showed no UTI. Brain CT was negative for any acute findings. The patient does report some abdominal pain at this time but states that is her baseline. The patient has no other complaints at this time. She denies any burning with urination. She denies any chest pain, any headaches, any fevers, but does have chronic chills. Hospital Course 61 F dialysis pt who presented with generalized weakness, decreased pO intake and acute on chronic abdominal pain due to diabetic gastroparesiss., she had a Ct abdomen with pelvis negative for acute findings. She received her regular [place] HD while being in hospital by nephrology she gets discharged home after getting her scheduled HD while being in hospital. She was given reglan prn nausea, vomiting and also given Tramadolf or pain control Home Meds Active Scripts Levofloxacin* (Levofloxacin*) 500 Mg Tablet, 500 MG PO Q48H, #7 TAB Prov:DORON HUIZAR MD 09/21/16 Gabapentin* (Neurontin*) 300 Mg Capsule, 300 MG PO BID, #60 CAP Prov:LISSY IVERSON 05/19/16 Albuterol/Ipratropium* (Combivent Respimat*) 20-100 Mcg/Inh - 4 Gm Aer.w.adap, 1 PUFF INHALATION QID for SHORTNESS OF BREATH, #1 INHALER 1 Refill use every 4 hours for the next 48hrs then change to every 4 hours as neededonly for cough and SOB Prov:LISSY IVERSON 05/19/16 Salmeterol Xinaf/Fluticasone* (Advair*) 250-50 Diskus Inhaler, 1 INH INH BID, # 1 VIAL 2 Refills Prov:LISSY IVERSON 05/19/16 Prednisone* (Prednisone*) 5 Mg Tab, 10 MG PO DAILY for 5 Days, TAB Prov:LISSY IVERSON. 05/19/16 Pantoprazole* (Pantoprazole*) 40 Mg Tablet.dr, 40 MG PO BID@06,18 for 14 Days Prov:LISSY IVERSON 05/19/16 Lactobacillus Acidoph/Bulgaricus* (Floranex*) 1 Each Tablet, 1 TAB PO BID for 30 Days, TAB Prov:LISSY IVERSON 05/19/16 Insulin Glargine* (Lantus*) 100 Unit/Ml Soln, 25 UNIT SC DAILY@20 for 30 Days Prov:LISSY IVERSON 05/19/16 Insulin Aspart* (Novolog Insulin Pen*) 100 Unit/Ml Soln, 9 UNIT SC WITH MEALS for 30 Days Prov:LISSY IVERSON. 05/19/16 Hydralazine Hcl* (Hydralazine Hcl*) 25 Mg Tab, 25 MG PO Q8 for 30 Days, TAB Prov:LISSY IVERSON05/19/16 Carvedilol* (Carvedilol*) 12.5 Mg Tablet, 12.5 MG PO BID for 30 Days, TAB 2 Refills Prov:LISSY IVERSON. 05/19/16 Calcium Acetate* (Calcium Acetate*) 667 Mg Capsule, 667 MG PO WITH MEALS for 30 Days, CAP Prov:LISSY IVERSON. 05/19/16 Calcitriol* (Calcitriol*) 0.25 Mcg Capsule, 0.25 MCG PO DAILY for 30 Days, CAP Prov:LISSY IVERSON. 05/19/16 Benzocaine/Menthol (SORE THROAT LOZENGE) 1 Each Lozenge, 1 LOZENGE MT Q1H Y for COUGH, #30 LOZENGE Prov:LISSY IVERSON M. 05/19/16 Amlodipine Besylate* (Norvasc*) 5 Mg Tablet, 5 MG PO DAILY for 30 Days, TAB Prov:LISSY IVERSON M. 05/19/16 Miconazole Nitrate* (Monistat 3*) 24 Gm Cmb.pf.crm, 1 APPFUL VAG HS for 3 Days, TUB X 3 Prov:ANHTONY WATSON EXPANDER MACHINE OPERATOR 02/25/16 Fluconazole* (Fluconazole*) 150 Mg Tablet, 150 MG PO Q48H, #3 TAB Prov:ANTHONY WATSON EXPANDER MACHINE OPERATOR 02/25/16 Tramadol HCl (Tramadol HCl) 50 Mg Tablet, 100 MG PO Q8H Y for PAIN, #20 TAB Prov:ANTHONY WATSON EXPANDER MACHINE OPERATOR 02/25/16 Reported Medications Losartan Potassium* (Losartan Potassium*) 50 Mg Tablet, 50 MG PO DAILY, TAB 05/11/16 Tramadol Hcl* (Ultram*) 50 Mg Tablet, 50 MG PO BID Y for PAIN, TAB 05/11/16 Furosemide* (Furosemide*) 80 Mg Tablet, 80 MG PO BID, #60 TAB 05/11/16 Atenolol* (Atenolol*) 50 Mg Tablet, 50 MG PO BID, #60 TAB 10/13/15 Amlodipine Besylate* (Norvasc*) 5 Mg Tablet, 5 MG PO DAILY, TAB 10/13/15 Benazepril Hcl* (Benazepril Hcl*) 40 Mg Tablet, 40 MG PO DAILY, #30 TAB 10/13/15 Calcium Acetate* (Phoslo*) 667 Mg Tablet, 667 MG PO WITH MEALS, TAB 10/07/15 Polyethylene Glycol* (Miralax*) 17 Gm Powd.pack, 17 GM PO BID, #60 PACKET 10/07/15 Pantoprazole* (Protonix*) 40 Mg Tablet.dr, 40 MG PO DAILY, TAB 10/07/15 Artificial Tears* (Artificial Tears* Ophth) 15 ml Opht, 1 DROP BOTH EYES TID, EA 10/07/15 Lorazepam* (Lorazepam*) 0.5 Mg Tablet, 0.5 MG PO BID Y for ANXIETY, TAB 10/07/15 Insulin Glargine* (Lantus*) 100 Unit/Ml Soln, 15 UNIT SC QHS, #1 VIAL 10/07/15 Gabapentin* (Gabapentin*) 100 Mg Capsule, 100 MG PO TID, #90 CAP 10/07/15 Calcitriol* (Calcitriol*) 0.25 Mcg Capsule, 0.25 MCG PO DAILY, CAP 02/26/14 Clopidogrel Bisulfate (Clopidogrel) 75 Mg Tablet, 75 MG PO DAILY, TAB 02/26/14 Sevelamer Hcl* (Renagel*) 800 Mg Tablet, 800 MG PO TID W/ MEALS, TAB 02/26/14 Atorvastatin* (Atorvastatin*) 80 Mg Tablet, 80 MG PO HS, TAB 02/26/14 Follow-up Plan Follow up with her own PMD at [facility], Follow up with HD unit for scheduled HD on Saturday, and Saturday Primary Care Provider Time spent on discharge: > 30 minutes DORON HUIZAR MD Sep 24, 2016 21:32
== END 2016-09-21 16:00 | disposition home or self-care (01) | DRG 73 ==
LOC: E/R 01:19 → TEL 07:51 → MERGE 07:51 → MS4 09:22 → PP2 09-19 02:29
PROVIDERS: ADMIT Internal Medicine; ATTEND Internal Medicine
PROC: 5A1D60Z (ICD-10-PCS; principal; 2016-09-16)
DX: E11.43 Type 2 diabetes mellitus with diabetic autonomic (poly)neuropathy (principal); N18.6 End stage renal disease; E11.22 Type 2 diabetes mellitus with diabetic chronic kidney disease; I12.0 Hypertensive chronic kidney disease with stage 5 chronic kidney disease or end stage renal disease; K31.84 Gastroparesis; Z99.2 Dependence on renal dialysis; Z79.4 Long term (current) use of insulin; J45.909 Unspecified asthma, uncomplicated; E66.9 Obesity, unspecified; Z90.49 Acquired absence of other specified parts of digestive tract; Z59.0 Homelessness; Z68.30 Body mass index [BMI] 30.0-30.9, adult
CPT/HCPCS: 36415; 70450; 71010; 71020; 72100; 74176; 80048; 80053; 81001; 82962; 83036; 83605; 83690; 83735; 84100; 84484; 85025; 85610; 85730; 87081; 90935; 93005; 94640; 94664; 96374; 96375; 97116; 97162; 97530; J0692; J1200; J1610; J1815; J2270; J2405; J2765; J7030; J7040; Q4081

== ENCOUNTER 2016-10-07 20:07 | Inpatient (IN) | payer OTHER ==
[~2016-10-07] VITALS: Ht 165.1 cm; Wt 81.0 kg
[2016-10-07 20:12] VITALS: Ht 165.1 cm; Wt 81.0 kg
[2016-10-07] MEDS ORDERED: SOD CHLORIDE 0.9% 1,000 ML IV STA (21:04)
[2016-10-07 22:10] LABS: ADD SCAN DIFF NO
[2016-10-07 22:14] LABS: BASOPHILS % 0.5 % (0.0-2.0); EOSINOPHILS # 0.1 10^3/ul (0.0-0.5); EOSINOPHILS % 1.6 % (0.0-7.0); HEMATOCRIT 36.5 % (37.0-47.0); HEMOGLOBIN 11.2 g/dl (12.0-16.0); LYMPHOCYTES # 1.2 10^3/ul (0.8-2.9); MEAN CORPUSCULAR HGB CONC 30.7 g/dl (32.0-37.0); MEAN CORPUSCULAR VOLUME 97.9 fl (82.0-101.0); MONOCYTE # 0.5 10^3/ul (0.3-0.9); NEUTROPHIL # 5.9 10^3/ul (1.6-7.5); NEUTROPHILS % 76.5 % (39.0-77.0); PLATELET COUNT 192 10^3/UL (140-415); RED BLOOD COUNT 3.73 10^6/ul (4.20-5.40); RED CELL DISTRIBUTION WIDTH 14.9 % (11.5-14.5); WHITE BLOOD COUNT 7.7 10^3/ul (4.8-10.8)
--- NOTE | 2016-10-07 22:16 | RADRPT ---
PROCEDURE: XR Chest. CLINICAL INDICATION: Shortness of breath. TECHNIQUE: Single frontal view. COMPARISON: 03/01/2016. FINDINGS: Mild atelectasis is present at the lung bases. The lungs are otherwise clear. The heart is mildly enlarged. There is calcification in the aorta consistent with atherosclerosis. There is no pleural effusion. There is no pneumothorax. IMPRESSION: 1. Mild atelectasis at the lung bases. 2. Cardiomegaly and atherosclerosis. RPTAT: QQ .Haris Dill MD, MD Date Time Electronically viewed and signed by .Haris Dill MD, on 10/07/2016 22:16 .R/
[2016-10-07 22:29] LABS: INR 1.07; PROTIME 13.9 Sec (12.2-14.2); PT RATIO 1.1
[2016-10-07 22:30] LABS: PARTIAL THROMBOPLASTIN TIME 31.2 Sec (25.0-35.0)
[2016-10-07 22:36] LABS: ALANINE AMINOTRANSFERASE 25 IU/L (13-69); ALBUMIN 4.6 g/dl (3.3-4.9); ALBUMIN/GLOBULIN RATIO 1.64; ALKALINE PHOSPHATASE 69 IU/L (42-121); AMYLASE 55 U/L (11-123); ANION GAP 23 (8-16); ASPARTATE AMINO TRANSFERASE 15 IU/L (15-46); BLOOD UREA NITROGEN 37 mg/dl (7-20); CARBON DIOXIDE 23 mmol/L (21-31); CHLORIDE 104 mmol/L (97-110); CREATININE 6.98 mg/dl (0.44-1.00); GLUCOSE 114 mg/dl (70-220); POTASSIUM 5.9 mmol/L (3.5-5.1); SODIUM 144 mmol/L (135-144); TOTAL PROTEIN 7.4 g/dl (6.1-8.1)
[2016-10-07 22:45] LABS: TROPONIN-I < 0.012 ng/ml (0.00-0.12)
[2016-10-08] VITALS (9 sets, daily range): BP systolic 136–165; BP diastolic 68–91; PULSE 71–89; RESP 18
--- NOTE | 2016-10-08 02:36 | RADRPT ---
PROCEDURE: XR Abdomen. CLINICAL INDICATION: Abdominal pain TECHNIQUE: Supine AP views of the abdomen. COMPARISON: None. FINDINGS: There are no dilated loops of small bowel to suggest a bowel obstruction. Gas and stool are seen wi thin nondilated large bowel. There are splenic artery calcifications. A 7 mm calcification in the central pelvis may represent a calcified fibroid. IMPRESSION: 1. Nonobstructive bowel gas pattern. RPTAT: HTAR .Dirk Price MD, MD Date Time Electronically viewed and signed by .Dirk Price MD, on 10/08/2016 02:36 .R/
[2016-10-08] MEDS ORDERED: NACL 0.9% 3 ML SYG IV SCH (03:30)
--- NOTE | 2016-10-08 04:05 | HP ---
Date/Time of Note Date/Time of Note DATE: 10/08/16 TIME: 03:41 Assessment/Plan VTE Prophylaxis VTE Prophylaxis Intervention: SCD's Assessment/Plan Chief Complaint/Hosp Course This is a 61-year-old female being admitted to the telemetry floor for: #1 abdominal pain: At the current time x-ray showed no signs of signs of bowel obstruction. Patient presented with no fever or elevated white blood cell count. Based on her description of her symptoms it appears patient may be right now dealing with possible gastroparesis versus gastroenteritis. Diverticulitis is also on the differential based on her previous CAT scan having diverticulosis however without an elevated white blood cell count or fever it is less likely. At the current time will provide patient Reglan which should help with her nausea as well as her bowel motility if indeed this is gastroparesis. We will keep the patient n.p.o. except meds. Obtain a GI consult as we will likely need a gastric emptying study for definitive diagnosis of gastroparesis. If there are any signs of infection such as fevers or elevated white blood cell count or any worsening of her symptoms will keep a low threshold to do a CAT scan of her abdomen and pelvis, as her previous On did show diverticulitis at that time but no other acute pathology. Troponin was negative as well. #2 end-stage renal disease: Patient did present with hyperkalemia of 5.9 and a creatinine of 6.8 platelet of arborization 5.7. She is due for dialysis on Saturday. Will put her in a nephrology consult for dialysis for later today. Will continue to monitor potassium levels with a repeat BMP. #3 coronary artery disease: Resume home medications once verified #4 hypertension: Resume home medications once verified #5 hyperlipidemia; resume home medications once verified #6 DVT and GI prophylaxis: SCDs, Protonix Further treatment strategy will be implemented as per the clinical course. Problems: HPI/ROS Admit Date/Time Admit Date/Time Hx of Present Illness Chief complaint: Abdominal pain 1 day This is a 61-year-old female with a history of diabetes hypertension end-stage renal disease and CAD who presents with 1 day of abdominal pain. Patient states the pain is of the lower abdomen. She states she has some nausea. Denies any fevers did state she has some slight chills. Did have an episode of vomitus with no blood. Denies any blood in the stool. States that her last BM was this morning there was a small amount of stool. She states she has been been feeling full lately for approximately the last month or so. Denies any chest pain or shortness of breath or dysuria. Denies urinary frequency or urgency. Allergies: Acetaminophen Medications: See MAY ROS Const: As per HPI Eyes : No pain discharge or redness or change in visual acuity ENT: No pain, sore throat, congestion, congestion, dysphagia or discharge Respiratory: No shortness of breath, cough, sputum, wheezing, or pleuritic pain Cardiovascular: No chest pain, palpitation, PND, or edema GI : As per HPI Genitourinary: As per HPI Musculoskeletal: No joint pain, back pain, neck pain, restricted range of motion in neck or joints Skin: No rash, bruising or hives Neuro: No headache, dizziness, syncope, seizure, focal weakness Endocrine: No polyuria, polydipsia, temperature intolerance Psych: No hallucination, depression, anxiety or suicidal ideation PMH/Family/Social Past Medical History Diabetes mellitus, hypertension, end-stage renal disease on hemodialysis Saturday, hyperlipidemia, CAD, asthma Past Surgical History Cholecystectomy, apparent history of cardiac stents placed in [place]. Past Surgical Hx: other Family History Significant Family History: diabetes Social History Alcohol Use: none Smoking Status: Never smoker Drug Use: none Exam/Review of Systems Vital Signs Vitals Vital Signs Date Time Temp Pulse Resp B/P Pulse Ox O2 Delivery O2 Flow Rate FiO2 10/08/16 01:27 81 16 144/69 97 Room Air 10/07/16 20:12 97.6 Exam Exam General: Patient is a well-developed female lying in bed in mild discomfort on palpation to her abdomen. HEENT: Atraumatic, normocephalic. The pupils are equal, round and reactive. Extraocular motor are intact Neck: Supple with full range of motion. No rigidity or meningismus Chest: Nontender Lungs: Clear to auscultation bilaterally no crackles rales or wheezing Heart: Normal S1-S2, Regular rhythm and rate. No overt murmurs appreciated Abdomen: Soft, mild tenderness to palpation of the lower abdomen, hypoactive bowel sounds, Extremities: Normal to inspection, no edema no cyanosis Neurologic: Normal mental status, speech normal, cranial nerves II through XII are intact, motor and sensory are intact, no focal weakness Additional Comments PROCEDURE: XR Chest. CLINICAL INDICATION: Shortness of breath. TECHNIQUE: Single frontal view. COMPARISON: 03/01/2016. FINDINGS: Mild atelectasis is present at the lung bases. The lungs are otherwise clear. The heart is mildly enlarged. There is calcification in the aorta consistent with atherosclerosis. There is no pleural effusion. There is no pneumothorax. IMPRESSION: 1. Mild atelectasis at the lung bases. 2. Cardiomegaly and atherosclerosis. RPTAT: QQ .Haris Dill MD, MD Date Time Electronically viewed and signed by .Haris Dill MD, MD on 10/07/2016 22:16 PROCEDURE: XR Abdomen. CLINICAL INDICATION: Abdominal pain TECHNIQUE: Supine AP views of the abdomen. COMPARISON: None. FINDINGS: There are no dilated loops of small bowel to suggest a bowel obstruction. Gas and stool are seen within nondilated large bowel. There are splenic artery calcifications. A 7 mm calcification in the central pelvis may represent a calcified fibroid. IMPRESSION: 1. Nonobstructive bowel gas pattern. Labs Result Diagram: 10/07/16219910/07/16 220 Medications Medications Current Medications Metoclopramide HCl (Reglan) 10 mg Q6H IV ; Start 10/08/16 at 03:30; Status UNV Morphine Sulfate (morphine) 2 mg Q4H PRN IV SEVERE PAIN LEVEL 7-10; Start 10/08 at 03:30; Status UNV Pantoprazole (Protonix Iv) 40 mg DAILY@06 IV ; Start 10/08/16 at 06:00; Status UNV Amlodipine Besylate (Norvasc) 5 mg DAILY PO ; Start 10/08/16 at 09:00; Status UNV Carvedilol (Coreg) 12.5 mg BID PO ; Start 10/08/16 at 09:00; Status UNV Clopidogrel Bisulfate (plaVIX) 75 mg DAILY PO ; Start 10/08/16 at 09:00; Status UNV Furosemide (Lasix) 80 mg BID PO ; Start 10/08/16 at 09:00; Status UNV Gabapentin (Neurontin) 300 mg BID PO ; Start 10/08/16 at 09:00; Status UNV Hydralazine HCl (Apresoline) 25 mg Q8 PO ; Start 10/08/16 at 06:00; Status UNV FINESSE MAHER Oct 08, 2016 03:56
[2016-10-08] MEDS: METOCLOPRAMIDE 10 MG INJ IV SCH ×4 (04:28→22:20)
[2016-10-08 05:58] LABS: ADD SCAN DIFF NO
[2016-10-08 06:00] LABS: BASOPHILS % 0.5 % (0.0-2.0); EOSINOPHILS # 0.1 10^3/ul (0.0-0.5); EOSINOPHILS % 1.8 % (0.0-7.0); HEMATOCRIT 35.2 % (37.0-47.0); HEMOGLOBIN 10.8 g/dl (12.0-16.0); LYMPHOCYTES % 13.7 % (15.0-51.0); MEAN CORPUSCULAR HEMOGLOBIN 30.3 pg (29.0-33.0); MEAN CORPUSCULAR HGB CONC 30.7 g/dl (32.0-37.0); MEAN CORPUSCULAR VOLUME 98.6 fl (82.0-101.0); MEAN PLATELET VOLUME 9.8 fl (7.4-10.4); MONOCYTE # 0.4 10^3/ul (0.3-0.9); MONOCYTES % 5.4 % (0.0-11.0); NEUTROPHIL # 5.9 10^3/ul (1.6-7.5); NEUTROPHILS % 78.1 % (39.0-77.0); PLATELET COUNT 181 10^3/UL (140-415); RED BLOOD COUNT 3.57 10^6/ul (4.20-5.40); RED CELL DISTRIBUTION WIDTH 14.7 % (11.5-14.5); WHITE BLOOD COUNT 7.6 10^3/ul (4.8-10.8)
[2016-10-08 06:47] LABS: ALBUMIN 4.3 g/dl (3.3-4.9); ALBUMIN/GLOBULIN RATIO 1.65; CALCIUM 7.7 mg/dl (8.4-10.2); CREATININE 7.03 mg/dl (0.44-1.00); TOTAL PROTEIN 6.9 g/dl (6.1-8.1)
[2016-10-08 07:05] LABS: POTASSIUM 6.2 mmol/L (3.5-5.1)
[2016-10-08] MEDS: PANTOPRAZOLE 40 MG INJ IV SCH (07:27)
[2016-10-08] MEDS: FUROSEMIDE 40 MG TAB PO SCH ×2 (07:29→18:04)
[2016-10-08] MEDS: GABAPENTIN 300 MG CAP PO SCH ×2 (08:11→22:20)
[2016-10-08] MEDS: AMLODIPINE 5 MG TAB PO SCH (08:12)
[2016-10-08] MEDS: CLOPIDOGREL 75 MG TAB PO SCH (08:17)
[2016-10-08] MEDS: morphine 2 MG INJ IV PRN (08:18)
--- NOTE | 2016-10-08 22:35 | CONS ---
Date/Time of Note Date/Time of Note DATE: 10/08/16 TIME: 22:34 Consultation Date/Type/Reason Admit Date/Time Oct 08, 2016 at 01:14 Initial Consult Date Exam/Review of Systems Vital Signs Vitals Vital Signs Date Time Temp Pulse Resp B/P Pulse Ox O2 Delivery O2 Flow Rate FiO2 10/08/16 21:03 82 18 165/91 95 Room Air 10/07/16 20:12 97.6 Results K is elevated and should have improved with HD Result Diagram: 10/08/16 0535 10/08/16 0535 Results 24 hrs Laboratory Tests Test 10/08/16 05:35 10/08/16 21:01 White Blood Count 7.6 Red Blood Count 3.57 L Hemoglobin 10.8 L Hematocrit 35.2 L Mean Corpuscular Volume 98.6 Mean Corpuscular Hemoglobin 30.3 Mean Corpuscular Hemoglobin Concent 30.7 L Red Cell Distribution Width 14.7 H Platelet Count 181 Mean Platelet Volume 9.8 Neutrophils % 78.1 H Lymphocytes % 13.7 L Monocytes % 5.4 Eosinophils % 1.8 Basophils % 0.5 Nucleated Red Blood Cells % 0.0 Neutrophils # 5.9 Lymphocytes # 1.0 Monocytes # 0.4 Eosinophils # 0.1 Basophils # 0.0 Nucleated Red Blood Cells # 0.0 Sodium Level 142 Potassium Level 6.2 *H Chloride Level 107 Carbon Dioxide Level 20 L Anion Gap 21 H Blood Urea Nitrogen 35 H Creatinine 7.03 H Glucose Level 142 Hemoglobin A1c 6.4 H Calcium Level 7.7 L Phosphorus Level 6.7 H Magnesium Level 2.1 Total Bilirubin 0.0 L Direct Bilirubin 0.00 Indirect Bilirubin 0.0 Aspartate Amino Transf (AST/SGOT) 13 L Alanine Aminotransferase (ALT/SGPT) 24 Alkaline Phosphatase 65 Total Protein 6.9 Albumin 4.3 Globulin 2.60 Albumin/Globulin Ratio 1.65 Thyroid Stimulating Hormone (TSH) 2.400 Bedside Glucose 92 Medications Medications Current Medications Metoclopramide HCl (Reglan) 10 mg Q6H IV Last administered on 10/08/16 22:20; Admin Dose 10 MG; Start 10/08/16 at 03:30 Morphine Sulfate (morphine) 2 mg Q4H PRN IV SEVERE PAIN LEVEL 7-10 Last administered on 10/08/16 08:18; Admin Dose 2 MG; Start 10/08/16 at 03:30 Pantoprazole (Protonix Iv) 40 mg DAILY@06 IV Last administered on 10/08/16 07: 27; Admin Dose 40 MG; Start 10/08/16 at 06:00 Amlodipine Besylate (Norvasc) 5 mg DAILY PO Last administered on 10/08/16 08: 12; Admin Dose 5 MG; Start 10/08/16 at 09:00 Carvedilol (Coreg) 12.5 mg BID PO Last administered on 10/08/16 22:20; Admin Dose 12.5 MG; Start 10/08/16 at 09:00 Clopidogrel Bisulfate (plaVIX) 75 mg DAILY PO Last administered on 10/08/16 08 :17; Admin Dose 75 MG; Start 10/08/16 at 09:00 Furosemide (Lasix) 80 mg BID@06,18 PO Last administered on 10/08/16 18:04; Admin Dose 80 MG; Start 10/08/16 at 06:00 Gabapentin (Neurontin) 300 mg BID PO Last administered on 10/08/16 22:20; Admin Dose 300 MG; Start 10/08/16 at 09:00 Hydralazine HCl (Apresoline) 25 mg Q8 PO Last administered on 10/08/16 22:20; Admin Dose 25 MG; Start 10/08/16 at 06:00 GEOFFREY PAT MD Oct 08, 2016 22:34
[2016-10-09] VITALS (13 sets, daily range): BP systolic 127–168; BP diastolic 60–68; PULSE 67–74; RESP 16–20
[2016-10-09] MEDS: morphine 2 MG INJ IV PRN (01:09)
[2016-10-09] MEDS: METOCLOPRAMIDE 10 MG INJ IV SCH ×5 (03:30→20:39)
[2016-10-09] MEDS: PANTOPRAZOLE 40 MG INJ IV SCH (05:04)
[2016-10-09] MEDS: FUROSEMIDE 40 MG TAB PO SCH ×2 (05:05→17:53)
[2016-10-09 07:54] LABS: ADD SCAN DIFF NO
[2016-10-09 07:57] LABS: BASOPHIL # 0.1 10^3/ul (0.0-0.1); BASOPHILS % 0.7 % (0.0-2.0); EOSINOPHILS # 0.2 10^3/ul (0.0-0.5); EOSINOPHILS % 2.2 % (0.0-7.0); HEMOGLOBIN 10.6 g/dl (12.0-16.0); LYMPHOCYTES # 1.8 10^3/ul (0.8-2.9); LYMPHOCYTES % 22.4 % (15.0-51.0); MEAN CORPUSCULAR HEMOGLOBIN 30.5 pg (29.0-33.0); MEAN CORPUSCULAR HGB CONC 31.2 g/dl (32.0-37.0); MEAN CORPUSCULAR VOLUME 97.7 fl (82.0-101.0); MEAN PLATELET VOLUME 10.3 fl (7.4-10.4); MONOCYTE # 0.5 10^3/ul (0.3-0.9); MONOCYTES % 6.1 % (0.0-11.0); NEUTROPHIL # 5.6 10^3/ul (1.6-7.5); NEUTROPHILS % 68.2 % (39.0-77.0); PLATELET COUNT 175 10^3/UL (140-415); RED BLOOD COUNT 3.48 10^6/ul (4.20-5.40); RED CELL DISTRIBUTION WIDTH 14.5 % (11.5-14.5); WHITE BLOOD COUNT 8.2 10^3/ul (4.8-10.8)
[2016-10-09 08:12] LABS: ALBUMIN 3.7 g/dl (3.3-4.9); ALBUMIN/GLOBULIN RATIO 1.19; BILIRUBIN,INDIRECT 0.1 mg/dl (0-1.1); BILIRUBIN,TOTAL 0.1 mg/dl (0.2-1.3); CALCIUM 7.8 mg/dl (8.4-10.2); CREATININE 5.37 mg/dl (0.44-1.00); TOTAL PROTEIN 6.8 g/dl (6.1-8.1)
[2016-10-09] MEDS: CLOPIDOGREL 75 MG TAB PO SCH (09:09)
[2016-10-09] MEDS: AMLODIPINE 5 MG TAB PO SCH (09:09)
[2016-10-09] MEDS: GABAPENTIN 300 MG CAP PO SCH ×2 (09:09→20:40)
[2016-10-09] MEDS ORDERED: NA PHOSPHATE/BIPHOS 133 ML ENEMA PR PRN (10:30)
--- NOTE | 2016-10-09 10:45 | PN ---
Date/Time of Note Date/Time of Note DATE: 10/09/16 TIME: 10:24 Assessment/Plan VTE Prophylaxis VTE Prophylaxis Intervention: SCD's Lines/Catheters IV [facility] Type (from [facility]ine [facility] Assessment/Plan Chief Complaint/Hosp Course 1. Abdominal pain/distention, this is likely constipation related versus possible gastroparesis. Symptoms improving with Reglan. -Pending GI consult for possible gastric emptying study for definitive diagnosis of gastroparesis. -Continue aggressive management for constipation. -Diet as tolerated, antiemetics, promotility agents and adequate analgesia -If there are any signs of infection such as fevers or elevated white blood cell count or any worsening of her symptoms will keep a low threshold to do a CAT scan of her abdomen and pelvis, as her previous On 09/16 did show diverticulosis at that time but no other acute pathology. 2. End-stage renal disease, on dialysis Saturday, Saturday, Saturday. -Nephrology evaluation appreciated. Patient is status post hemodialysis on 10/08. -We will continue to monitor renal function closely and renally adjust medications. 3. Coronary artery disease. No present issues. -Continue home medications. 4 hypertension. Stable. -Continue home antihypertensives. -we will follow-up with nephrology recommendation on whether to continue LIVIER inhibitor versus ARB. 5 Hyperlipidemia -Continue statin #6 DVT and GI prophylaxis: SCDs, Protonix 6. Constipation. -Continue stool softeners and laxatives. Consider adding Fleet enema if indicated. Plan: We will follow-up with GI recommendation. We will also follow-up with nephrology recommendation on dialysis and hypertension management. Will continue to advance diet as tolerated. Case discussed with Dr. Mariscal. Problems: Subjective 24 Hr Interval Summary Free Text/Dictation Today patient looking good. With no bloating or abdominal pain. However complaining of constipation for 3 days. Patient has been tolerating renal diet. No reported nausea or vomiting. Exam/Review of Systems Vital Signs Vitals Vital Signs Date Time Temp Pulse Resp B/P Pulse Ox O2 Delivery O2 Flow Rate FiO2 10/09/16 08:31 69 10/09/16 07:59 99.3 17 144/65 95 10/08/16 21:03 Room Air Intake and Output 10/08/16 10/08/16 10/09/16 15:00 23:00 07:00 Intake Total 1000 ml 300 ml Output Total 3000 ml Balance -2000 ml 300 ml Exam General: Overweight woman, not in any acute distress . HEENT: Normocephalic, Atraumatic, No laceration or hematoma; Eyes: PEERL, Conjunctiva clear, Anicteric sclera Neck: Supple without any lymphadenopathy, nontender, no JVD, no carotid bruits, trachea midline, no thyromegaly Cardiac: S1, S2 auscultated, regular rhythm and rate, no mumurs or gallop Pulmonary: Normal respiratory effort. Chest clear to auscultation bilaterally, no adventitious breath sounds GI: Abdomen distended, non tender, no masses, no rebound tenderness or guarding. Bowel sounds active on all four quadrants Genitourinary: Deferred Extremities: No cyanosis, clubbing, or edema. Pulses [2+] bilaterally. Full ROM on all four extremities. No focal weakness appreciated. Neurologic: Alert to person, place, time, and situation. Affect appropriate, intact sensation. Skin: Clean,dry, and intact. No ecchymosis, no rashes, or lesions Access: Left upper arm AV shunt. Intact Results Result Diagram: 10/09/1670410/09/16704 Results 24 hrs Laboratory Tests Test 10/08/16 21:01 10/09/16 07:05 Bedside Glucose 92 White Blood Count 8.2 Red Blood Count 3.48 L Hemoglobin 10.6 L Hematocrit 34.0 L Mean Corpuscular Volume 97.7 Mean Corpuscular Hemoglobin 30.5 Mean Corpuscular Hemoglobin Concent 31.2 L Red Cell Distribution Width 14.5 Platelet Count 175 Mean Platelet Volume 10.3 Neutrophils % 68.2 Lymphocytes % 22.4 Monocytes % 6.1 Eosinophils % 2.2 Basophils % 0.7 Nucleated Red Blood Cells % 0.0 Neutrophils # 5.6 Lymphocytes # 1.8 Monocytes # 0.5 Eosinophils # 0.2 Basophils # 0.1 Nucleated Red Blood Cells # 0.0 Sodium Level 144 Potassium Level 5.0 Chloride Level 102 Carbon Dioxide Level 27 Anion Gap 20 H Blood Urea Nitrogen 29 H Creatinine 5.37 H Glucose Level 103 Calcium Level 7.8 L Total Bilirubin 0.1 L Direct Bilirubin 0.00 Indirect Bilirubin 0.1 Aspartate Amino Transf (AST/SGOT) 14 L Alanine Aminotransferase (ALT/SGPT) 23 Alkaline Phosphatase 64 Total Protein 6.8 Albumin 3.7 Globulin 3.10 Albumin/Globulin Ratio 1.19 Medications Medications Current Medications Metoclopramide HCl (Reglan) 10 mg Q6H IV Last administered on 10/08/16 22:20; Admin Dose 10 MG; Start 10/08/16 at 03:30 Morphine Sulfate (morphine) 2 mg Q4H PRN IV SEVERE PAIN LEVEL 7-10 Last administered on 10/09/16 01:09; Admin Dose 2 MG; Start 10/08/16 at 03:30 Pantoprazole (Protonix Iv) 40 mg DAILY@06 IV Last administered on 10/09/16 05: 04; Admin Dose 40 MG; Start 10/08/16 at 06:00 Amlodipine Besylate (Norvasc) 5 mg DAILY PO Last administered on 10/09/16 09: 09; Admin Dose 5 MG; Start 10/08/16 at 09:00 Carvedilol (Coreg) 12.5 mg BID PO Last administered on 10/09/16 09:09; Admin Dose 12.5 MG; Start 10/08/16 at 09:00 Clopidogrel Bisulfate (plaVIX) 75 mg DAILY PO Last administered on 10/09/16 09 :09; Admin Dose 75 MG; Start 10/08/16 at 09:00 Furosemide (Lasix) 80 mg BID@18 PO Last administered on 10/09/16 05:05; Admin Dose 80 MG; Start 10/08/16 at 06:00 Gabapentin (Neurontin) 300 mg BID PO Last administered on 10/09/16 09:09; Admin Dose 300 MG; Start 10/08/16 at 09:00 Hydralazine HCl (Apresoline) 25 mg Q8 PO Last administered on 10/09/16 05:15; Admin Dose 25 MG; Start 10/08/16 at 06:00 YAHIR YAÑEZ NP Oct 09, 2016 10:35
[2016-10-09] MEDS: MAGNESIUM HYDROXIDE 30ML CUP PO SCH (11:36)
[2016-10-09] MEDS: DOCUSATE SODIUM 100 MG CAP PO SCH ×2 (11:36→20:40)
--- NOTE | 2016-10-09 13:10 | CONS ---
Date/Time of Note Date/Time of Note DATE: 10/09/16 TIME: 13:10 Assessment/Plan Assessment/Plan Additional Assessment/Plan 61 yo Female with 1) Abdominal Pain, Chronic 2) ESRD on HD 3) DM with Renal complication, ESRD 4) Anemia, Chronic diseae 5) Mineral bone disease, CKD S/p HD Cont MWF Schedule Next HD tomorrow if still in hospital Otherwise at outpt HD center [facility] Consultation Date/Type/Reason Admit Date/Time Oct 08, 2016 at 01:14 Initial Consult Date Type of Consultation: Renal 24 HR Interval Summary Free Text/Dictation NO new complaints, S/p HD yesterday Exam/Review of Systems Vital Signs Vitals Vital Signs Date Time Temp Pulse Resp B/P Pulse Ox O2 Delivery O2 Flow Rate FiO2 10/09/16 12:08 67 10/09/16 11:30 99.2 16 141/61 93 10/08/16 21:03 Room Air Intake and Output 10/08/16 10/08/16 10/09/16 15:00 23:00 07:00 Intake Total 1000 ml 300 ml Output Total 3000 ml Balance -2000 ml 300 ml Exam Constitutional: No distress ENMT: mucosa pink and moist Neck: No jvd Respiratory: clear to auscultation Cardiovascular: regular rate and rhythm, No edema Gastrointestinal: soft, tender, No rebound or guarding Neurological: STABLEHAND II-XII intact, No confused, No lethargic Skin: No diaphoresis Results Result Diagram: 10/09/16 0705 10/09/16 0705 Results 24 hrs Laboratory Tests Test 10/08/16 21:01 10/09/16 07:05 Bedside Glucose 92 White Blood Count 8.2 Red Blood Count 3.48 L Hemoglobin 10.6 L Hematocrit 34.0 L Mean Corpuscular Volume 97.7 Mean Corpuscular Hemoglobin 30.5 Mean Corpuscular Hemoglobin Concent 31.2 L Red Cell Distribution Width 14.5 Platelet Count 175 Mean Platelet Volume 10.3 Neutrophils % 68.2 Lymphocytes % 22.4 Monocytes % 6.1 Eosinophils % 2.2 Basophils % 0.7 Nucleated Red Blood Cells % 0.0 Neutrophils # 5.6 Lymphocytes # 1.8 Monocytes # 0.5 Eosinophils # 0.2 Basophils # 0.1 Nucleated Red Blood Cells # 0.0 Sodium Level 144 Potassium Level 5.0 Chloride Level 102 Carbon Dioxide Level 27 Anion Gap 20 H Blood Urea Nitrogen 29 H Creatinine 5.37 H Glucose Level 103 Calcium Level 7.8 L Total Bilirubin 0.1 L Direct Bilirubin 0.00 Indirect Bilirubin 0.1 Aspartate Amino Transf (AST/SGOT) 14 L Alanine Aminotransferase (ALT/SGPT) 23 Alkaline Phosphatase 64 Total Protein 6.8 Albumin 3.7 Globulin 3.10 Albumin/Globulin Ratio 1.19 Medications Medications Current Medications Metoclopramide HCl (Reglan) 10 mg Q6H IV Last administered on 10/09/16 10:26; Admin Dose 10 MG; Start 10/08/16 at 03:30 Morphine Sulfate (morphine) 2 mg Q4H PRN IV SEVERE PAIN LEVEL 7-10 Last administered on 10/09/16 01:09; Admin Dose 2 MG; Start 10/08/16 at 03:30 Pantoprazole (Protonix Iv) 40 mg DAILY@06 IV Last administered on 10/09/16 05: 04; Admin Dose 40 MG; Start 10/08/16 at 06:00 Amlodipine Besylate (Norvasc) 5 mg DAILY PO Last administered on 10/09/16 09: 09; Admin Dose 5 MG; Start 10/08/16 at 09:00 Carvedilol (Coreg) 12.5 mg BID PO Last administered on 10/09/16 09:09; Admin Dose 12.5 MG; Start 10/08/16 at 09:00 Clopidogrel Bisulfate (plaVIX) 75 mg DAILY PO Last administered on 10/09/16 09 :09; Admin Dose 75 MG; Start 10/08/16 at 09:00 Furosemide (Lasix) 80 mg BID@18 PO Last administered on 10/09/16 05:05; Admin Dose 80 MG; Start 10/08/16 at 06:00 Gabapentin (Neurontin) 300 mg BID PO Last administered on 10/09/16 09:09; Admin Dose 300 MG; Start 10/08/16 at 09:00 Hydralazine HCl (Apresoline) 25 mg Q8 PO Last administered on 10/09/16 05:15; Admin Dose 25 MG; Start 10/08/16 at 06:00 Magnesium Hydroxide (Milk Of Mag) 30 ml DAILY PO Last administered on 11:36; Admin Dose 30 ML; Start 10/09/16 at 11:30 Docusate Sodium (Colace) 200 mg BID PO Last administered on 10/09/16t 11:36; Admin Dose 200 MG; Start 10/09/16 at 12:00 Sodium Biphosphate/ Sodium Phosphate (Fleet Enema) [address] CONSTIPATION; Start 10/09/16 at 10:30 GIANNA HAMPTON MD Oct 09, 2016 13:10
--- NOTE | 2016-10-09 14:37 | CONS ---
Date/Time of Note Date/Time of Note DATE: 10/09/16 TIME: 14:25 Assessment/Plan Assessment/Plan Additional Assessment/Plan Assessment * Abdominal pain r/o diabetic gastroparesis * Diabetes mellitus * ESRD on dialysis managed by nephrology * Hyperkalemia corrected Plan * continue present management * EGD tomorrow risks and benefit explained to patient and agreed with the planned procedure Consultation Date/Type/Reason Admit Date/Time Oct 08, 2016 at 01:14 Date of Consultation: Oct 09, 2016 Type of Consultation: gastroenterology Reason for Consultation abdominal pain Referring Provider: FINESSE MAHER Hx of Present Illness 61 year old female with past medical history of diabetes mellitus,ERSD on hemodialysis,CAD presented to our emergency room because abdominal pain.Present condition started 1 day prior to admission as vague abdominal pain which becoming generalized with associated nausea but no vomiting,hematemesis, hematochezia ,fever nor diarrhea. Emergency room course revealed KUB . Nonobstructive bowel gas pattern. Potassium is elevated 5.9 now 5,BUN and creatinine also elevated. Previous CT abdomen last August 2016 revealed 3 mm nonobstructing mid right renal calculus. Mild atrophy of both kidneys without intrarenal masses or obstructive uropathy bilaterally.. Status post cholecystectomy of biliary ductal dilation.. Colonic diverticulosis without CT evidence of diverticulitis or appendicitis. . Negative for intra-abdominal free air fluid abscesses or lymphadenopathy. Constitutional: improved, no complaints Eyes: no complaints ENT: no complaints Respiratory: no complaints Cardiovascular: no complaints Gastrointestinal: nausea, pain Genitourinary: no complaints Musculoskeletal: no complaints Skin: no complaints Neurologic: no complaints Endocrine: no complaints Lymphatic: no complaints Psychological: nl mood/affect, no complaints Immunologic: no complaints Past Medical History Medical History: diabetes, diverticulitis Past Surgical History Past Surgical Hx: other Social History Alcohol Use: none Smoking Status: Former smoker Drug Use: none Exam/Review of Systems Vital Signs Vitals Vital Signs Date Time Temp Pulse Resp B/P Pulse Ox O2 Delivery O2 Flow Rate FiO2 10/09/16 12:08 67 10/09/16 11:30 99.2 16 141/61 93 10/08/16 21:03 Room Air Intake and Output 10/08/16 10/08/16 10/09/16 15:00 23:00 07:00 Intake Total 1000 ml 300 ml Output Total 3000 ml Balance -2000 ml 300 ml Exam Constitutional: alert, oriented, well developed Psych: nl mood/affect, no complaints Head: atraumatic, normocephalic Eyes: PERRL, nl conjunctiva, nl sclera ENMT: mucosa pink and moist Neck: non-tender, supple Respiratory: clear to auscultation, normal air movement Cardiovascular: nl pulses, regular rate and rhythm Gastrointestinal: distended, nl liver, spleen, non-tender, soft, No rebound or guarding Musculoskeletal: nl extremities to inspection, nl gait and stance Extremities: normal pulses Neurological: nl mental status, nl speech, nl strength Skin: nl turgor, No rash or lesions Lymph: nl lymph nodes Results Result Diagram: 10/09/1670410/09/16 07 Results 24 hrs Laboratory Tests Test 10/08/16 21:01 10/09/16 07:05 Bedside Glucose 92 White Blood Count 8.2 Red Blood Count 3.48 L Hemoglobin 10.6 L Hematocrit 34.0 L Mean Corpuscular Volume 97.7 Mean Corpuscular Hemoglobin 30.5 Mean Corpuscular Hemoglobin Concent 31.2 L Red Cell Distribution Width 14.5 Platelet Count 175 Mean Platelet Volume 10.3 Neutrophils % 68.2 Lymphocytes % 22.4 Monocytes % 6.1 Eosinophils % 2.2 Basophils % 0.7 Nucleated Red Blood Cells % 0.0 Neutrophils # 5.6 Lymphocytes # 1.8 Monocytes # 0.5 Eosinophils # 0.2 Basophils # 0.1 Nucleated Red Blood Cells # 0.0 Sodium Level 144 Potassium Level 5.0 Chloride Level 102 Carbon Dioxide Level 27 Anion Gap 20 H Blood Urea Nitrogen 29 H Creatinine 5.37 H Glucose Level 103 Calcium Level 7.8 L Total Bilirubin 0.1 L Direct Bilirubin 0.00 Indirect Bilirubin 0.1 Aspartate Amino Transf (AST/SGOT) 14 L Alanine Aminotransferase (ALT/SGPT) 23 Alkaline Phosphatase 64 Total Protein 6.8 Albumin 3.7 Globulin 3.10 Albumin/Globulin Ratio 1.19 Medications Medications Current Medications Metoclopramide HCl (Reglan) 10 mg Q6H IV Last administered on 10/09/16 10:26; Admin Dose 10 MG; Start 10/08/16 at 03:30 Morphine Sulfate (morphine) 2 mg Q4H PRN IV SEVERE PAIN LEVEL 7-10 Last administered on 10/09/16 01:09; Admin Dose 2 MG; Start 10/08/16 at 03:30 Pantoprazole (Protonix Iv) 40 mg DAILY@06 IV Last administered on 10/09/16 05: 04; Admin Dose 40 MG; Start 10/08/16 at 06:00 Amlodipine Besylate (Norvasc) 5 mg DAILY PO Last administered on 10/09/16 09: 09; Admin Dose 5 MG; Start 10/08/16 at 09:00 Carvedilol (Coreg) 12.5 mg BID PO Last administered on 10/09/16 09:09; Admin Dose 12.5 MG; Start 10/08/16 at 09:00 Clopidogrel Bisulfate (plaVIX) 75 mg DAILY PO Last administered on 10/09/16 09 :09; Admin Dose 75 MG; Start 10/08/16 at 09:00 Furosemide (Lasix) 80 mg BID@ PO Last administered on 10/09/16 05:05; Admin Dose 80 MG; Start 10/08/16 at 06:00 Gabapentin (Neurontin) 300 mg BID PO Last administered on 10/09/16 09:09; Admin Dose 300 MG; Start 10/08/16 at 09:00 Hydralazine HCl (Apresoline) 25 mg Q8 PO Last administered on 10/09/16 05:15; Admin Dose 25 MG; Start 10/08/16 at 06:00 Magnesium Hydroxide (Milk Of Mag) 30 ml DAILY PO Last administered on 11:36; Admin Dose 30 ML; Start 10/09/16 at 11:30 Docusate Sodium (Colace) 200 mg BID PO Last administered on 10/09/16 11:36; Admin Dose 200 MG; Start 10/09/16 at 12:00 Sodium Biphosphate/ Sodium Phosphate (Fleet Enema) 133 ml DAILY PRN [place] CONSTIPATION; Start 10/09/16 at 10:30 ANGÉLICA BERG MD Oct 09, 2016 14:36
[2016-10-09] MEDS ORDERED: ATOR80TA75 PO (16:50)
[2016-10-09] MEDS ORDERED: CALC667T PO (16:50)
[2016-10-09] MEDS ORDERED: METO5TAB58 PO (16:50)
[2016-10-09] MEDS ORDERED: HYDR100T7 PO (16:50)
[2016-10-09] MEDS ORDERED: VENL75TA2 PO (16:50)
[2016-10-09] MEDS ORDERED: SELE120S4 TP (16:50)
[2016-10-09] MEDS ORDERED: BACL10TA PO (16:50)
[2016-10-09] MEDS ORDERED: CALC0.2511 PO (16:50)
[2016-10-09] MEDS ORDERED: PANT40TA4 PO (16:50)
[2016-10-10] VITALS (20 sets, daily range): BP systolic 103–183; BP diastolic 51–77; PULSE 66–85; RESP 14–20
[2016-10-10] MEDS: METOCLOPRAMIDE 10 MG INJ IV SCH ×4 (04:09→22:00)
[2016-10-10] MEDS: PANTOPRAZOLE 40 MG INJ IV SCH ×2 (05:20→18:00)
[2016-10-10] MEDS: FUROSEMIDE 40 MG TAB PO SCH ×2 (05:22→18:01)
[2016-10-10 07:40] LABS: ADD SCAN DIFF NO
[2016-10-10 07:47] LABS: BASOPHIL # 0.1 10^3/ul (0.0-0.1); EOSINOPHILS # 0.2 10^3/ul (0.0-0.5); EOSINOPHILS % 2.4 % (0.0-7.0); HEMATOCRIT 33.5 % (37.0-47.0); HEMOGLOBIN 10.3 g/dl (12.0-16.0); LYMPHOCYTES # 1.5 10^3/ul (0.8-2.9); LYMPHOCYTES % 20.2 % (15.0-51.0); MEAN CORPUSCULAR HEMOGLOBIN 30.2 pg (29.0-33.0); MEAN CORPUSCULAR HGB CONC 30.7 g/dl (32.0-37.0); MEAN CORPUSCULAR VOLUME 98.2 fl (82.0-101.0); MEAN PLATELET VOLUME 10.4 fl (7.4-10.4); MONOCYTE # 0.6 10^3/ul (0.3-0.9); MONOCYTES % 7.7 % (0.0-11.0); NEUTROPHIL # 5.2 10^3/ul (1.6-7.5); NEUTROPHILS % 68.4 % (39.0-77.0); PLATELET COUNT 159 10^3/UL (140-415); RED BLOOD COUNT 3.41 10^6/ul (4.20-5.40); RED CELL DISTRIBUTION WIDTH 14.6 % (11.5-14.5); WHITE BLOOD COUNT 7.6 10^3/ul (4.8-10.8)
[2016-10-10 08:20] LABS: ALBUMIN 3.6 g/dl (3.3-4.9); ALBUMIN/GLOBULIN RATIO 1.16; CALCIUM 7.2 mg/dl (8.4-10.2); CREATININE 7.57 mg/dl (0.44-1.00); TOTAL PROTEIN 6.7 g/dl (6.1-8.1)
[2016-10-10 08:31] LABS: POTASSIUM 5.5 mmol/L (3.5-5.1)
[2016-10-10] MEDS: DOCUSATE SODIUM 100 MG CAP PO SCH ×2 (09:00→20:03)
[2016-10-10] MEDS: CLOPIDOGREL 75 MG TAB PO SCH (09:00)
[2016-10-10] MEDS: MAGNESIUM HYDROXIDE 30ML CUP PO SCH (09:00)
[2016-10-10] MEDS: GABAPENTIN 300 MG CAP PO SCH ×2 (09:00→20:03)
[2016-10-10] MEDS: AMLODIPINE 5 MG TAB PO SCH (09:00)
[2016-10-10] MEDS ORDERED: HYDROCODONE/APAP (5/325) TAB PO PRN (10:30)
[2016-10-10] MEDS ORDERED: BISACODYL 10 MG SUPP PR ONE (12:00)
--- NOTE | 2016-10-10 12:06 | PN ---
Date/Time of Note Date/Time of Note DATE: 10/10/16 TIME: 11:59 Assessment/Plan VTE Prophylaxis VTE Prophylaxis Intervention: ambulation, SCD's Lines/Catheters IV C[facility]ter Type (from [facility]): Saline Lock Urinary Cath still in place: No Assessment/Plan Chief Complaint/Hosp Course 1. Abdominal pain/distention, this is likely constipation related versus possible gastroparesis. Symptoms improving with Reglan. -Scheduled for endoscopy today -Continue aggressive management for constipation. -Diet as tolerated, antiemetics, promotility agents and adequate analgesia -If there are any signs of infection such as fevers or elevated white blood cell count or any worsening of her symptoms will keep a low threshold to do a CAT scan of her abdomen and pelvis, as her previous On 09/16 did show diverticulosis at that time but no other acute pathology. 2. End-stage renal disease, on dialysis Saturday, Saturday, Saturday. -Nephrology evaluation appreciated. We will follow nephrology recommendation. -We will continue to monitor renal function closely and renally adjust medications. 3. Coronary artery disease. No present issues. -Continue home medications. 4. Hypertension. Stable. -Continue current antihypertensives. 5 Hyperlipidemia -Continue statin 6. Constipation. -Continue stool softeners and laxatives. DVT and GI prophylaxis: SCDs, Protonix Plan: We will follow-up with GI recommendation. We will also follow-up with nephrology recommendation on dialysis and hypertension management. Will continue to advance diet as tolerated. Case discussed with Dr. Mariscal. Problems: Subjective 24 Hr Interval Summary Free Text/Dictation Patient still complaining of constipation. Scheduled for endoscopy today. Exam/Review of Systems Vital Signs Vitals Vital Signs Date Time Temp Pulse Resp B/P Pulse Ox O2 Delivery O2 Flow Rate FiO2 10/10/16 11:23 98.5 68 17 124/59 94 10/08/16 21:03 Room Air Intake and Output 10/09/16 10/09/16 10/10/16 15:00 23:00 07:00 Intake Total 800 ml Balance 800 ml Exam General: Overweight woman, not in any acute distress . HEENT: Normocephalic, Atraumatic, No laceration or hematoma; Eyes: PEERL, Conjunctiva clear, Anicteric sclera Neck: Supple without any lymphadenopathy, nontender, no JVD, no carotid bruits, trachea midline, no thyromegaly Cardiac: S1, S2 auscultated, regular rhythm and rate, no mumurs or gallop Pulmonary: Normal respiratory effort. Chest clear to auscultation bilaterally, no adventitious breath sounds GI: Abdomen obese to inspection. Soft, non tender, non- distended, no masses, no rebound tenderness or guarding. Bowel sounds active on all four quadrants Genitourinary: Deferred Extremities: No cyanosis, clubbing, or edema. Pulses [2+] bilaterally. Full ROM on all four extremities. No focal weakness appreciated. Neurologic: Alert to person, place, time, and situation. Affect appropriate, intact sensation. Skin: Clean,dry, and intact. No ecchymosis, no rashes, or lesions Access: Left upper arm AV shunt. Intact Results Result Diagram: 10/10/1670410/10/16704 Results 24 hrs Laboratory Tests Test 10/10/16 07:05 White Blood Count 7.6 Red Blood Count 3.41 L Hemoglobin 10.3 L Hematocrit 33.5 L Mean Corpuscular Volume 98.2 Mean Corpuscular Hemoglobin 30.2 Mean Corpuscular Hemoglobin Concent 30.7 L Red Cell Distribution Width 14.6 H Platelet Count 159 Mean Platelet Volume 10.4 Neutrophils % 68.4 Lymphocytes % 20.2 Monocytes % 7.7 Eosinophils % 2.4 Basophils % 1.0 Nucleated Red Blood Cells % 0.0 Neutrophils # 5.2 Lymphocytes # 1.5 Monocytes # 0.6 Eosinophils # 0.2 Basophils # 0.1 Nucleated Red Blood Cells # 0.0 Sodium Level 142 Potassium Level 5.5 H Chloride Level 100 Carbon Dioxide Level 23 Anion Gap 25 H Blood Urea Nitrogen 47 #H Creatinine 7.57 #H Glucose Level 125 Calcium Level 7.2 L Total Bilirubin 0.0 L Direct Bilirubin 0.00 Indirect Bilirubin 0.0 Aspartate Amino Transf (AST/SGOT) 14 L Alanine Aminotransferase (ALT/SGPT) 21 Alkaline Phosphatase 77 Total Protein 6.7 Albumin 3.6 Globulin 3.10 Albumin/Globulin Ratio 1.16 Medications Medications Current Medications Metoclopramide HCl (Reglan) 10 mg Q6H IV Last administered on 10/10/16t 09:00; Admin Dose 10 MG; Start 10/08/16 at 03:30 Morphine Sulfate (morphine) 2 mg Q4H PRN IV SEVERE PAIN LEVEL 7-10 Last administered on 10/09/16 01:09; Admin Dose 2 MG; Start 10/08/16 at 03:30 Pantoprazole (Protonix Iv) 40 mg DAILY@06 IV Last administered on 10/10/16 05: 20; Admin Dose 40 MG; Start 10/08/16 at 06:00 Amlodipine Besylate (Norvasc) 5 mg DAILY PO Last administered on 10/09/16 09: 09; Admin Dose 5 MG; Start 10/08/16 at 09:00 Carvedilol (Coreg) 12.5 mg BID PO Last administered on 10/09/16 20:40; Admin Dose 12.5 MG; Start 10/08/16 at 09:00 Clopidogrel Bisulfate (plaVIX) 75 mg DAILY PO Last administered on 10/10/16 09 :00; Admin Dose 75 MG; Start 10/08/16 at 09:00 Furosemide (Lasix) 80 mg BID@18 PO Last administered on 10/10/16 05:22; Admin Dose 80 MG; Start 10/08/16 at 06:00 Gabapentin (Neurontin) 300 mg BID PO Last administered on 10/10/16 09:00; Admin Dose 300 MG; Start 10/08/16 at 09:00 Hydralazine HCl (Apresoline) 25 mg Q8 PO Last administered on 10/10/16 05:21; Admin Dose 25 MG; Start 10/08/16 at 06:00 Magnesium Hydroxide (Milk Of Mag) 30 ml DAILY PO Last administered on 09:00; Admin Dose 30 ML; Start 10/09/16 at 11:30 Docusate Sodium (Colace) 200 mg BID PO Last administered on 10/10/16 09:00; Admin Dose 200 MG; Start 10/09/16 at 12:00 Sodium Biphosphate/ Sodium Phosphate (Fleet Enema) 133 ml DAILY PRN [place] CONSTIPATION; Start 10/09/16 at 10:30 Bisacodyl (Dulcolax Supp) 10 mg ONCE ONCE [place] ; Start 10/10/16 at 12:00; Stop at 12:01 YAHIR YAÑEZ NP Oct 10, 2016 12:06 YAHIR YAÑEZ NP Oct 10, 2016 12:06
--- NOTE | 2016-10-10 14:24 | CONS ---
Date/Time of Note Date/Time of Note DATE: 10/10/16 TIME: 14:22 Assessment/Plan Assessment/Plan Additional Assessment/Plan 61 yo Female with 1) Abdominal Pain, Chronic 2) ESRD on HD 3) DM with Renal complication, ESRD 4) Anemia, Chronic diseae 5) Mineral bone disease, CKD On HD Stable, Cont current treatment. Cont MWF Schedule Pending EGD Consultation Date/Type/Reason Admit Date/Time Oct 08, 2016 at 01:14 Type of Consultation: Renal Referring Provider: FINESSE MAHER 24 HR Interval Summary Free Text/Dictation Seen and examined on HD, No new complaints. Pending EGD later today Constitutional: No requiring O2 Exam/Review of Systems Vital Signs Vitals Vital Signs Date Time Temp Pulse Resp B/P Pulse Ox O2 Delivery O2 Flow Rate FiO2 10/10/16 12:40 85 16 10/10/16 11:23 98.5 124/59 94 10/08/16 21:03 Room Air Intake and Output 10/09/16 10/09/16 10/10/16 15:00 23:00 07:00 Intake Total 800 ml Balance 800 ml Exam Constitutional: alert, No distress ENMT: mucosa pink and moist Respiratory: No diminished breath sounds, No labored breathing Cardiovascular: regular rate and rhythm, No edema Gastrointestinal: non-tender, soft Extremities: No edema Neurological: nl mental status, No confused, No lethargic Results Result Diagram: 10/10/16 0705 10/10/16 0705 Results 24 hrs Laboratory Tests Test 10/10/16 07:05 White Blood Count 7.6 Red Blood Count 3.41 L Hemoglobin 10.3 L Hematocrit 33.5 L Mean Corpuscular Volume 98.2 Mean Corpuscular Hemoglobin 30.2 Mean Corpuscular Hemoglobin Concent 30.7 L Red Cell Distribution Width 14.6 H Platelet Count 159 Mean Platelet Volume 10.4 Neutrophils % 68.4 Lymphocytes % 20.2 Monocytes % 7.7 Eosinophils % 2.4 Basophils % 1.0 Nucleated Red Blood Cells % 0.0 Neutrophils # 5.2 Lymphocytes # 1.5 Monocytes # 0.6 Eosinophils # 0.2 Basophils # 0.1 Nucleated Red Blood Cells # 0.0 Sodium Level 142 Potassium Level 5.5 H Chloride Level 100 Carbon Dioxide Level 23 Anion Gap 25 H Blood Urea Nitrogen 47 #H Creatinine 7.57 #H Glucose Level 125 Calcium Level 7.2 L Total Bilirubin 0.0 L Direct Bilirubin 0.00 Indirect Bilirubin 0.0 Aspartate Amino Transf (AST/SGOT) 14 L Alanine Aminotransferase (ALT/SGPT) 21 Alkaline Phosphatase 77 Total Protein 6.7 Albumin 3.6 Globulin 3.10 Albumin/Globulin Ratio 1.16 Medications Medications Current Medications Metoclopramide HCl (Reglan) 10 mg Q6H IV Last administered on 10/10/16 09:00; Admin Dose 10 MG; Start 10/08/16 at 03:30 Morphine Sulfate (morphine) 2 mg Q4H PRN IV SEVERE PAIN LEVEL 7-10 Last administered on 10/09/16 01:09; Admin Dose 2 MG; Start 10/08/16 at 03:30 Pantoprazole (Protonix Iv) 40 mg DAILY@06 IV Last administered on 10/10/16 05: 20; Admin Dose 40 MG; Start 10/08/16 at 06:00 Amlodipine Besylate (Norvasc) 5 mg DAILY PO Last administered on 10/09/16 09: 09; Admin Dose 5 MG; Start 10/08/16 at 09:00 Carvedilol (Coreg) 12.5 mg BID PO Last administered on 10/09/16 20:40; Admin Dose 12.5 MG; Start 10/08/16 at 09:00 Clopidogrel Bisulfate (plaVIX) 75 mg DAILY PO Last administered on 10/10/16 09 :00; Admin Dose 75 MG; Start 10/08/16 at 09:00 Furosemide (Lasix) 80 mg BID@,18 PO Last administered on 10/10/16 05:22; Admin Dose 80 MG; Start 10/08/16 at 06:00 Gabapentin (Neurontin) 300 mg BID PO Last administered on 10/10/16 09:00; Admin Dose 300 MG; Start 10/08/16 at 09:00 Hydralazine HCl (Apresoline) 25 mg Q8 PO Last administered on 10/10/16 05:21; Admin Dose 25 MG; Start 10/08/16 at 06:00 Magnesium Hydroxide (Milk Of Mag) 30 ml DAILY PO Last administered on 09:00; Admin Dose 30 ML; Start 10/09/16 at 11:30 Docusate Sodium (Colace) 200 mg BID PO Last administered on 10/10/16t 09:00; Admin Dose 200 MG; Start 10/09/16 at 12:00 Sodium Biphosphate/ Sodium Phosphate (Fleet Enema) 133 ml DAILY PRN [place] CONSTIPATION; Start 10/09/16 at 10:30 GIANNA HAMPTON MD Oct 10, 2016 14:24
[2016-10-10] MEDS ORDERED: LIDOCAINE 2% (SDV) 5 ML INJ ONE (15:59)
[2016-10-10] MEDS ORDERED: PROPOFOL 20 ML ONE (15:59)
[2016-10-11] VITALS (14 sets, daily range): BP systolic 124–156; BP diastolic 43–86; PULSE 70–81; RESP 18–70
[2016-10-11] MEDS: METOCLOPRAMIDE 10 MG INJ IV SCH ×4 (04:05→21:09)
[2016-10-11] MEDS: FUROSEMIDE 40 MG TAB PO SCH ×2 (05:14→18:22)
[2016-10-11] MEDS: PANTOPRAZOLE 40 MG INJ IV SCH ×2 (05:14→18:23)
[2016-10-11 08:06] LABS: ADD SCAN DIFF NO
[2016-10-11 08:13] LABS: BASOPHIL # 0.1 10^3/ul (0.0-0.1); BASOPHILS % 0.7 % (0.0-2.0); EOSINOPHILS # 0.1 10^3/ul (0.0-0.5); EOSINOPHILS % 1.7 % (0.0-7.0); HEMATOCRIT 34.4 % (37.0-47.0); HEMOGLOBIN 10.6 g/dl (12.0-16.0); LYMPHOCYTES # 1.1 10^3/ul (0.8-2.9); LYMPHOCYTES % 13.8 % (15.0-51.0); MEAN CORPUSCULAR HEMOGLOBIN 30.3 pg (29.0-33.0); MEAN CORPUSCULAR HGB CONC 30.8 g/dl (32.0-37.0); MEAN CORPUSCULAR VOLUME 98.3 fl (82.0-101.0); MEAN PLATELET VOLUME 10.6 fl (7.4-10.4); MONOCYTE # 0.5 10^3/ul (0.3-0.9); MONOCYTES % 6.4 % (0.0-11.0); NEUTROPHIL # 6.3 10^3/ul (1.6-7.5); NEUTROPHILS % 76.9 % (39.0-77.0); PLATELET COUNT 159 10^3/UL (140-415); RED CELL DISTRIBUTION WIDTH 14.4 % (11.5-14.5); WHITE BLOOD COUNT 8.3 10^3/ul (4.8-10.8)
[2016-10-11 08:39] LABS: ALBUMIN 3.7 g/dl (3.3-4.9); ALBUMIN/GLOBULIN RATIO 1.15; CALCIUM 7.4 mg/dl (8.4-10.2); CREATININE 6.22 mg/dl (0.44-1.00); POTASSIUM 5.4 mmol/L (3.5-5.1); TOTAL PROTEIN 6.9 g/dl (6.1-8.1)
[2016-10-11] MEDS: CLOPIDOGREL 75 MG TAB PO SCH (09:55)
[2016-10-11] MEDS: MAGNESIUM HYDROXIDE 30ML CUP PO SCH (09:55)
[2016-10-11] MEDS: GABAPENTIN 300 MG CAP PO SCH ×2 (09:55→21:08)
[2016-10-11] MEDS: AMLODIPINE 5 MG TAB PO SCH (09:55)
[2016-10-11] MEDS: DOCUSATE SODIUM 100 MG CAP PO SCH ×2 (09:55→21:08)
--- NOTE | 2016-10-11 10:37 | PN ---
Date/Time of Note Date/Time of Note DATE: 10/11/16 TIME: 10:33 Assessment/Plan VTE Prophylaxis VTE Prophylaxis Intervention: ambulation, SCD's Lines/Catheters IV Catheter Type (from Nrs): Saline Lock Urinary Cath still in place: No Assessment/Plan Chief Complaint/Hosp Course 1. Abdominal pain/Distention, this is likely constipation related versus possible gastroparesis. Symptoms improvedn. -Status post endoscopy -pending report -For gastric empty study today -Continue aggressive management for constipation. -NPO, antiemetics, promotility agents and adequate analgesia 2. End-stage renal disease, on dialysis Saturday, Saturday, Saturday. -Nephrology evaluation appreciated. We will follow nephrology recommendation. -We will continue to monitor renal function closely and renally adjust medications. 3. Coronary artery disease. No present issues. -Continue home medications. 4. Hypertension. Stable. -Continue current antihypertensives. 5 Hyperlipidemia -Continue statin 6. Constipation. -Continue stool softeners and laxatives. DVT and GI prophylaxis: SCDs, Protonix Plan: We will follow-up with endoscopy/gastric empty study findings and GI recs We will also follow-up with nephrology recommendation on dialysis and hypertension management. Case discussed with Dr. Mariscal. Problems: Subjective 24 Hr Interval Summary Free Text/Dictation Patient complaining of constipation. No abdominal pain, N/V. NPO for gastric empty study. Exam/Review of Systems Vital Signs Vitals Vital Signs Date Time Temp Pulse Resp B/P Pulse Ox O2 Delivery O2 Flow Rate FiO2 10/11/16 08:15 98.2 70 70 124/43 93 10/10/16 16:35 Room Air Intake and Output 10/10/16 10/10/16 10/11/16 15:00 23:00 07:00 Intake Total 400 ml 500 ml Output Total 2400 ml Balance -2000 ml 500 ml Exam General: Overweight woman, not in any acute distress . HEENT: Normocephalic, Atraumatic, No laceration or hematoma; Eyes: PEERL, Conjunctiva clear, Anicteric sclera Neck: Supple without any lymphadenopathy, nontender, no JVD, no carotid bruits, trachea midline, no thyromegaly Cardiac: S1, S2 auscultated, regular rhythm and rate, no mumurs or gallop Pulmonary: Normal respiratory effort. Chest clear to auscultation bilaterally, no adventitious breath sounds GI: Abdomen distended, non tender, no masses, no rebound tenderness or guarding. Bowel sounds active on all four quadrants Genitourinary: Deferred Extremities: No cyanosis, clubbing, or edema. Pulses [2+] bilaterally. Full ROM on all four extremities. No focal weakness appreciated. Neurologic: Alert to person, place, time, and situation. Affect appropriate, intact sensation. Skin: Clean,dry, and intact. No ecchymosis, no rashes, or lesions Access: Left upper arm AV shunt. Intact Results Result Diagram: 10/11/16 0657 10/11/16 0657 Results 24 hrs Laboratory Tests Test 10/10/16 15:59 10/11/16 06:57 Bedside Glucose 102 White Blood Count 8.3 Red Blood Count 3.50 L Hemoglobin 10.6 L Hematocrit 34.4 L Mean Corpuscular Volume 98.3 Mean Corpuscular Hemoglobin 30.3 Mean Corpuscular Hemoglobin Concent 30.8 L Red Cell Distribution Width 14.4 Platelet Count 159 Mean Platelet Volume 10.6 H Neutrophils % 76.9 Lymphocytes % 13.8 L Monocytes % 6.4 Eosinophils % 1.7 Basophils % 0.7 Nucleated Red Blood Cells % 0.0 Neutrophils # 6.3 Lymphocytes # 1.1 Monocytes # 0.5 Eosinophils # 0.1 Basophils # 0.1 Nucleated Red Blood Cells # 0.0 Sodium Level 141 Potassium Level 5.4 H Chloride Level 99 Carbon Dioxide Level 26 Anion Gap 21 H Blood Urea Nitrogen 39 H Creatinine 6.22 H Glucose Level 190 Calcium Level 7.4 L Total Bilirubin 0.0 L Direct Bilirubin 0.00 Indirect Bilirubin 0.0 Aspartate Amino Transf (AST/SGOT) 14 L Alanine Aminotransferase (ALT/SGPT) 15 Alkaline Phosphatase 79 Total Protein 6.9 Albumin 3.7 Globulin 3.20 Albumin/Globulin Ratio 1.15 Medications Medications Current Medications Metoclopramide HCl (Reglan) 10 mg Q6H IV Last administered on 10/11/16 09:54; Admin Dose 10 MG; Start 10/08/16 at 03:30 Morphine Sulfate (morphine) 2 mg Q4H PRN IV SEVERE PAIN LEVEL 7-10 Last administered on 10/09/16 01:09; Admin Dose 2 MG; Start 10/08/16 at 03:30 Amlodipine Besylate (Norvasc) 5 mg DAILY PO Last administered on 10/11/16 09: 55; Admin Dose 5 MG; Start 10/08/16 at 09:00 Carvedilol (Coreg) 12.5 mg BID PO Last administered on 10/11/16 09:55; Admin Dose 12.5 MG; Start 10/08/16 at 09:00 Clopidogrel Bisulfate (plaVIX) 75 mg DAILY PO Last administered on 10/11/16 09 :55; Admin Dose 75 MG; Start 10/08/16 at 09:00 Furosemide (Lasix) 80 mg BID@18 PO Last administered on 10/11/16 05:14; Admin Dose 80 MG; Start 10/08/16 at 06:00 Gabapentin (Neurontin) 300 mg BID PO Last administered on 10/11/16 09:55; Admin Dose 300 MG; Start 10/08/16 at 09:00 Hydralazine HCl (Apresoline) 25 mg Q8 PO Last administered on 10/11/16 05:13; Admin Dose 25 MG; Start 10/08/16 at 06:00 Magnesium Hydroxide (Milk Of Mag) 30 ml DAILY PO Last administered on 09:55; Admin Dose 30 ML; Start 10/09/16 at 11:30 Docusate Sodium (Colace) 200 mg BID PO Last administered on 10/11/16 09:55; Admin Dose 200 MG; Start 10/09/16 at 12:00 Sodium Biphosphate/ Sodium Phosphate (Fleet Enema) 133 ml DAILY PRN [place] CONSTIPATION; Start 10/09/16 at 10:30 Pantoprazole (Protonix Iv) 40 mg BID@ IV Last administered on 10/11/16 05 :14; Admin Dose 40 MG; Start 10/10/16 at 18:00 YAHIR YAÑEZ NP Oct 11, 2016 10:36
[2016-10-11] MEDS ORDERED: BISACODYL (EC) 5 MG TAB PO ONE (11:00)
[2016-10-11] MEDS ORDERED: BISACODYL (EC) 5 MG TAB PO PRN (11:00)
--- NOTE | 2016-10-11 16:32 | PN ---
Date/Time of Note Date/Time of Note DATE: 10/11/16 TIME: 16:28 Assessment/Plan VTE Prophylaxis VTE Prophylaxis Intervention: SCD's Lines/Catheters IV C[facility] Type (from [facility] Saline Lock Urinary Cath still in place: No Assessment/Plan Assessment/Plan Assessment * Abdominal pain EGD gastritis severe * Diabetes mellitus * ESRD on dialysis managed by nephrology * Hyperkalemia corrected Plan * continue present management * case discussed with Dr Tavares * Further orders will depend on clinical course Subjective 24 Hr Interval Summary Free Text/Dictation * course reviewed * EGD severe gastritis r/o H pylori infection * No untoward events overnight Exam/Review of Systems Vital Signs Vitals Vital Signs Date Time Temp Pulse Resp B/P Pulse Ox O2 Delivery O2 Flow Rate FiO2 10/11/16 16:09 70 10/11/16 15:17 98.6 18 137/65 98 10/10/16 16:35 Room Air Intake and Output 10/10/16 10/10/16 10/11/16 15:00 23:00 07:00 Intake Total 400 ml 500 ml Output Total 2400 ml Balance -2000 ml 500 ml Exam Constitutional: alert Neck: non-tender, supple Respiratory: clear to auscultation, normal air movement Cardiovascular: nl pulses, regular rate and rhythm Gastrointestinal: nl liver, spleen, soft Musculoskeletal: nl extremities to inspection Extremities: normal pulses Neurological: nl speech, nl strength Skin: nl turgor, No rash or lesions Lymph: nl lymph nodes Results Result Diagram: 10/11/16 0657 10/11/16 0657 Results 24 hrs Laboratory Tests Test 10/11/16 06:57 White Blood Count 8.3 Red Blood Count 3.50 L Hemoglobin 10.6 L Hematocrit 34.4 L Mean Corpuscular Volume 98.3 Mean Corpuscular Hemoglobin 30.3 Mean Corpuscular Hemoglobin Concent 30.8 L Red Cell Distribution Width 14.4 Platelet Count 159 Mean Platelet Volume 10.6 H Neutrophils % 76.9 Lymphocytes % 13.8 L Monocytes % 6.4 Eosinophils % 1.7 Basophils % 0.7 Nucleated Red Blood Cells % 0.0 Neutrophils # 6.3 Lymphocytes # 1.1 Monocytes # 0.5 Eosinophils # 0.1 Basophils # 0.1 Nucleated Red Blood Cells # 0.0 Sodium Level 141 Potassium Level 5.4 H Chloride Level 99 Carbon Dioxide Level 26 Anion Gap 21 H Blood Urea Nitrogen 39 H Creatinine 6.22 H Glucose Level 190 Calcium Level 7.4 L Total Bilirubin 0.0 L Direct Bilirubin 0.00 Indirect Bilirubin 0.0 Aspartate Amino Transf (AST/SGOT) 14 L Alanine Aminotransferase (ALT/SGPT) 15 Alkaline Phosphatase 79 Total Protein 6.9 Albumin 3.7 Globulin 3.20 Albumin/Globulin Ratio 1.15 Medications Medications Current Medications Metoclopramide HCl (Reglan) 10 mg Q6H IV Last administered on 10/11/16 14:45; Admin Dose 10 MG; Start 10/08/16 at 03:30 Morphine Sulfate (morphine) 2 mg Q4H PRN IV SEVERE PAIN LEVEL 7-10 Last administered on 10/09/16 01:09; Admin Dose 2 MG; Start 10/08/16 at 03:30 Amlodipine Besylate (Norvasc) 5 mg DAILY PO Last administered on 10/11/16 09: 55; Admin Dose 5 MG; Start 10/08/16 at 09:00 Carvedilol (Coreg) 12.5 mg BID PO Last administered on 10/11/16 09:55; Admin Dose 12.5 MG; Start 10/08/16 at 09:00 Clopidogrel Bisulfate (plaVIX) 75 mg DAILY PO Last administered on 10/11/16 09 :55; Admin Dose 75 MG; Start 10/08/16 at 09:00 Furosemide (Lasix) 80 mg BID@,18 PO Last administered on 10/11/16 05:14; Admin Dose 80 MG; Start 10/08/16 at 06:00 Gabapentin (Neurontin) 300 mg BID PO Last administered on 10/11/16 09:55; Admin Dose 300 MG; Start 10/08/16 at 09:00 Hydralazine HCl (Apresoline) 25 mg Q8 PO Last administered on 10/11/16 14:46; Admin Dose 25 MG; Start 10/08/16 at 06:00 Magnesium Hydroxide (Milk Of Mag) 30 ml DAILY PO Last administered on 09:55; Admin Dose 30 ML; Start 10/09/16 at 11:30 Docusate Sodium (Colace) 200 mg BID PO Last administered on 10/11/16 09:55; Admin Dose 200 MG; Start 10/09/16 at 12:00 Sodium Biphosphate/ Sodium Phosphate (Fleet Enema) 133 ml DAILY PRN [place] CONSTIPATION; Start 10/09/16 at 10:30 Pantoprazole (Protonix Iv) 40 mg BID@,18 IV Last administered on 10/11/16t 05 :14; Admin Dose 40 MG; Start 10/10/16 at 18:00 Bisacodyl (Dulcolax) 10 mg DAILY PRN PO CONSTIPATION; Start 10/11/16 at 11:00 YORDAN GERARDO NP Oct 11, 2016 16:32
--- NOTE | 2016-10-11 21:12 | RADRPT ---
PROCEDURE: Gastric emptying scan CLINICAL INDICATION: 61 -year-old patient with abdominal pain, nausea and vomiting. TECHNIQUE: Following the oral administration of 1.1 mCi of Tc-99m sulfur colloid, labeled to a winnie id meal, gastric emptying study was obtained. COMPARISON: No prior studies. FINDINGS: The stomach is well visualized. The small intestines are identified. There is evidence of normal gastric emptying rate from the start of the study with calculated T1/2 t valerie of 69 minutes (normal range is 30 - 90 minutes). There is no evidence of increased activity in the chest to suggest the presence of gastroesophageal reflux. IMPRESSION: Normal gastric emptying rate . RPTAT: HH .Brenna Parra MD, Date Time Electronically viewed and signed by .Brenna Parra MD, MD on 10/11/2016 21:11 .L/
--- NOTE | 2016-10-11 21:35 | CONS ---
Date/Time of Note Date/Time of Note DATE: 10/11/16 TIME: 21:35 Assessment/Plan Assessment/Plan Additional Assessment/Plan Pt will be dialyzed in AM Await further plans Cont'd Hospitalization Reason: Await further plans per PMD Consultation Date/Type/Reason Admit Date/Time Oct 08, 2016 at 01:14 Type of Consultation: Renal Referring Provider: FINESSE MAHER 24 HR Interval Summary Free Text/Dictation Pt is feeling & looking much better Exam/Review of Systems Vital Signs Vitals Vital Signs Date Time Temp Pulse Resp B/P Pulse Ox O2 Delivery O2 Flow Rate FiO2 10/11/16 21:08 81 10/11/16 20:01 97.2 18 141/85 94 10/10/16 16:35 Room Air Intake and Output 10/10/16 10/10/16 10/11/16 15:00 23:00 07:00 Intake Total 400 ml 500 ml Output Total 2400 ml Balance -2000 ml 500 ml Exam Constitutional: alert, oriented, well developed Psych: nl mood/affect, no complaints Head: atraumatic, normocephalic Eyes: EOMI, PERRL, nl conjunctiva, nl lids, nl sclera ENMT: nl external ears & nose, nl lips & teeth, nl nasal mucosa & septum Neck: non-tender, supple Respiratory: clear to auscultation, normal air movement Cardiovascular: nl pulses, regular rate and rhythm Gastrointestinal: nl liver, spleen, non-tender, soft Musculoskeletal: nl extremities to inspection, nl gait and stance Extremities: normal pulses, other (Lt arm avf bruit present) Neurological: MINE SHIFTER II-XII intact, nl mental status, nl speech, nl strength Skin: nl turgor, No rash or lesions Lymph: nl lymph nodes Results Hct, Chemistry stable Result Diagram: 10/11/16 0657 10/11/16 0657 Results 24 hrs Laboratory Tests Test 10/11/16 06:57 White Blood Count 8.3 Red Blood Count 3.50 L Hemoglobin 10.6 L Hematocrit 34.4 L Mean Corpuscular Volume 98.3 Mean Corpuscular Hemoglobin 30.3 Mean Corpuscular Hemoglobin Concent 30.8 L Red Cell Distribution Width 14.4 Platelet Count 159 Mean Platelet Volume 10.6 H Neutrophils % 76.9 Lymphocytes % 13.8 L Monocytes % 6.4 Eosinophils % 1.7 Basophils % 0.7 Nucleated Red Blood Cells % 0.0 Neutrophils # 6.3 Lymphocytes # 1.1 Monocytes # 0.5 Eosinophils # 0.1 Basophils # 0.1 Nucleated Red Blood Cells # 0.0 Sodium Level 141 Potassium Level 5.4 H Chloride Level 99 Carbon Dioxide Level 26 Anion Gap 21 H Blood Urea Nitrogen 39 H Creatinine 6.22 H Glucose Level 190 Calcium Level 7.4 L Total Bilirubin 0.0 L Direct Bilirubin 0.00 Indirect Bilirubin 0.0 Aspartate Amino Transf (AST/SGOT) 14 L Alanine Aminotransferase (ALT/SGPT) 15 Alkaline Phosphatase 79 Total Protein 6.9 Albumin 3.7 Globulin 3.20 Albumin/Globulin Ratio 1.15 Medications Medications Current Medications Metoclopramide HCl (Reglan) 10 mg Q6H IV Last administered on 10/11/16 21:09; Admin Dose 10 MG; Start 10/08/16 at 03:30 Morphine Sulfate (morphine) 2 mg Q4H PRN IV SEVERE PAIN LEVEL 7-10 Last administered on 10/09/16 01:09; Admin Dose 2 MG; Start 10/08/16 at 03:30 Amlodipine Besylate (Norvasc) 5 mg DAILY PO Last administered on 10/11/16 09: 55; Admin Dose 5 MG; Start 10/08/16 at 09:00 Carvedilol (Coreg) 12.5 mg BID PO Last administered on 10/11/16 21:08; Admin Dose 12.5 MG; Start 10/08/16 at 09:00 Clopidogrel Bisulfate (plaVIX) 75 mg DAILY PO Last administered on 10/11/16 09 :55; Admin Dose 75 MG; Start 10/08/16 at 09:00 Furosemide (Lasix) 80 mg BID@,18 PO Last administered on 10/11/16 18:22; Admin Dose 80 MG; Start 10/08/16 at 06:00 Gabapentin (Neurontin) 300 mg BID PO Last administered on 10/11/16 21:08; Admin Dose 300 MG; Start 10/08/16 at 09:00 Hydralazine HCl (Apresoline) 25 mg Q8 PO Last administered on 10/11/16 21:08; Admin Dose 25 MG; Start 10/08/16 at 06:00 Magnesium Hydroxide (Milk Of Mag) 30 ml DAILY PO Last administered on 09:55; Admin Dose 30 ML; Start 10/09/16 at 11:30 Docusate Sodium (Colace) 200 mg BID PO Last administered on 10/11/16 21:08; Admin Dose 200 MG; Start 10/09/16 at 12:00 Sodium Biphosphate/ Sodium Phosphate (Fleet Enema) 133 ml DAILY PRN [place] CONSTIPATION; Start 10/09/16 at 10:30 Pantoprazole (Protonix Iv) 40 mg BID@18 IV Last administered on 10/11/16 18 :23; Admin Dose 40 MG; Start 10/10/16 at 18:00 Bisacodyl (Dulcolax) 10 mg DAILY PRN PO CONSTIPATION; Start 10/11/16 at 11:00 GEOFFREY PAT MD Oct 11, 2016 21:35
--- NOTE | 2016-10-11 21:37 | CONS ---
Date/Time of Note Date/Time of Note DATE: 10/11/16 TIME: 21:36 Consultation Date/Type/Reason Admit Date/Time Oct 08, 2016 at 01:14 Type of Consultation: Renal Referring Provider: FINESSE MAHER Exam/Review of Systems Vital Signs Vitals Vital Signs Date Time Temp Pulse Resp B/P Pulse Ox O2 Delivery O2 Flow Rate FiO2 10/11/16 21:08 81 10/11/16 20:01 97.2 18 141/85 94 10/10/16 16:35 Room Air Intake and Output 10/10/16 10/10/16 10/11/16 15:00 23:00 07:00 Intake Total 400 ml 500 ml Output Total 2400 ml Balance -2000 ml 500 ml Results Result Diagram: 10/11/16 0657 10/11/16 0657 Results 24 hrs Laboratory Tests Test 10/11/16 06:57 White Blood Count 8.3 Red Blood Count 3.50 L Hemoglobin 10.6 L Hematocrit 34.4 L Mean Corpuscular Volume 98.3 Mean Corpuscular Hemoglobin 30.3 Mean Corpuscular Hemoglobin Concent 30.8 L Red Cell Distribution Width 14.4 Platelet Count 159 Mean Platelet Volume 10.6 H Neutrophils % 76.9 Lymphocytes % 13.8 L Monocytes % 6.4 Eosinophils % 1.7 Basophils % 0.7 Nucleated Red Blood Cells % 0.0 Neutrophils # 6.3 Lymphocytes # 1.1 Monocytes # 0.5 Eosinophils # 0.1 Basophils # 0.1 Nucleated Red Blood Cells # 0.0 Sodium Level 141 Potassium Level 5.4 H Chloride Level 99 Carbon Dioxide Level 26 Anion Gap 21 H Blood Urea Nitrogen 39 H Creatinine 6.22 H Glucose Level 190 Calcium Level 7.4 L Total Bilirubin 0.0 L Direct Bilirubin 0.00 Indirect Bilirubin 0.0 Aspartate Amino Transf (AST/SGOT) 14 L Alanine Aminotransferase (ALT/SGPT) 15 Alkaline Phosphatase 79 Total Protein 6.9 Albumin 3.7 Globulin 3.20 Albumin/Globulin Ratio 1.15 Medications Medications Current Medications Metoclopramide HCl (Reglan) 10 mg Q6H IV Last administered on 10/11/16 21:09; Admin Dose 10 MG; Start 10/08/16 at 03:30 Morphine Sulfate (morphine) 2 mg Q4H PRN IV SEVERE PAIN LEVEL 7-10 Last administered on 10/09/16 01:09; Admin Dose 2 MG; Start 10/08/16 at 03:30 Amlodipine Besylate (Norvasc) 5 mg DAILY PO Last administered on 10/11/16 09: 55; Admin Dose 5 MG; Start 10/08/16 at 09:00 Carvedilol (Coreg) 12.5 mg BID PO Last administered on 10/11/16 21:08; Admin Dose 12.5 MG; Start 10/08/16 at 09:00 Clopidogrel Bisulfate (plaVIX) 75 mg DAILY PO Last administered on 10/11/16 09 :55; Admin Dose 75 MG; Start 10/08/16 at 09:00 Furosemide (Lasix) 80 mg BID@18 PO Last administered on 10/11/16 18:22; Admin Dose 80 MG; Start 10/08/16 at 06:00 Gabapentin (Neurontin) 300 mg BID PO Last administered on 10/11/16 21:08; Admin Dose 300 MG; Start 10/08/16 at 09:00 Hydralazine HCl (Apresoline) 25 mg Q8 PO Last administered on 10/11/16 21:08; Admin Dose 25 MG; Start 10/08/16 at 06:00 Magnesium Hydroxide (Milk Of Mag) 30 ml DAILY PO Last administered on 09:55; Admin Dose 30 ML; Start 10/09/16 at 11:30 Docusate Sodium (Colace) 200 mg BID PO Last administered on 10/11/16 21:08; Admin Dose 200 MG; Start 10/09/16 at 12:00 Sodium Biphosphate/ Sodium Phosphate (Fleet Enema) [address] CONSTIPATION; Start 10/09/16 at 10:30 Pantoprazole (Protonix Iv) 40 mg BID@ IV Last administered on 10/11/16 18 :23; Admin Dose 40 MG; Start 10/10/16 at 18:00 Bisacodyl (Dulcolax) 10 mg DAILY PRN PO CONSTIPATION; Start 10/11/16 at 11:00 GEOFFREY PAT MD Oct 11, 2016 21:37
[2016-10-12] VITALS (16 sets, daily range): BP systolic 119–162; BP diastolic 57–72; PULSE 70–82; RESP 16–19
[2016-10-12] MEDS: METOCLOPRAMIDE 10 MG INJ IV SCH ×3 (03:24→15:03)
[2016-10-12] MEDS: PANTOPRAZOLE 40 MG INJ IV SCH (06:01)
[2016-10-12] MEDS: FUROSEMIDE 40 MG TAB PO SCH ×2 (06:01→17:17)
[2016-10-12 07:59] LABS: ADD SCAN DIFF NO
[2016-10-12 08:03] LABS: BASOPHILS % 0.5 % (0.0-2.0); EOSINOPHILS # 0.2 10^3/ul (0.0-0.5); EOSINOPHILS % 2.8 % (0.0-7.0); HEMATOCRIT 33.7 % (37.0-47.0); HEMOGLOBIN 10.3 g/dl (12.0-16.0); LYMPHOCYTES # 1.5 10^3/ul (0.8-2.9); LYMPHOCYTES % 20.3 % (15.0-51.0); MEAN CORPUSCULAR HEMOGLOBIN 30.4 pg (29.0-33.0); MEAN CORPUSCULAR HGB CONC 30.6 g/dl (32.0-37.0); MEAN CORPUSCULAR VOLUME 99.4 fl (82.0-101.0); MEAN PLATELET VOLUME 10.3 fl (7.4-10.4); MONOCYTE # 0.5 10^3/ul (0.3-0.9); MONOCYTES % 6.3 % (0.0-11.0); NEUTROPHIL # 5.3 10^3/ul (1.6-7.5); NEUTROPHILS % 69.8 % (39.0-77.0); PLATELET COUNT 163 10^3/UL (140-415); RED BLOOD COUNT 3.39 10^6/ul (4.20-5.40); RED CELL DISTRIBUTION WIDTH 14.3 % (11.5-14.5); WHITE BLOOD COUNT 7.6 10^3/ul (4.8-10.8)
[2016-10-12] MEDS: DOCUSATE SODIUM 100 MG CAP PO SCH (08:19)
[2016-10-12] MEDS: GABAPENTIN 300 MG CAP PO SCH (08:19)
[2016-10-12] MEDS: CLOPIDOGREL 75 MG TAB PO SCH (08:19)
[2016-10-12] MEDS: MAGNESIUM HYDROXIDE 30ML CUP PO SCH (08:20)
[2016-10-12] MEDS: AMLODIPINE 5 MG TAB PO SCH (08:21)
[2016-10-12 08:23] LABS: ALBUMIN 3.7 g/dl (3.3-4.9); ALBUMIN/GLOBULIN RATIO 1.19; CALCIUM 7.6 mg/dl (8.4-10.2); CREATININE 7.35 mg/dl (0.44-1.00); TOTAL PROTEIN 6.8 g/dl (6.1-8.1)
[2016-10-12 08:31] LABS: POTASSIUM 5.3 mmol/L (3.5-5.1)
--- NOTE | 2016-10-12 10:12 | PN ---
Date/Time of Note Date/Time of Note DATE: 10/12/16 TIME: 10:09 Assessment/Plan VTE Prophylaxis VTE Prophylaxis Intervention: ambulation Lines/Catheters IV Catheter Type (from [facility]): Saline Lock Urinary Cath still in place: No Assessment/Plan Assessment/Plan Assessment * Abdominal pain resolved EGD gastritis severe Gastric emptying scan Normal gastric emptying rate . * Diabetes mellitus * ESRD on dialysis managed by nephrology * Hyperkalemia corrected Plan * Stable for outpatient management * case discussed with Dr Tavares Subjective 24 Hr Interval Summary Free Text/Dictation * Course reviewed with RN * Patient seen and examined * Normal gastric studies * tolerating diet Exam/Review of Systems Vital Signs Vitals Vital Signs Date Time Temp Pulse Resp B/P Pulse Ox O2 Delivery O2 Flow Rate FiO2 10/12/16 08:26 77 10/12/16 07:12 98.8 18 147/60 95 10/10/16 16:35 Room Air Intake and Output 10/11/16 10/11/16 10/12/16 15:00 23:00 07:00 Intake Total 200 ml 300 ml Balance 200 ml 300 ml Exam Constitutional: alert, frail Neck: non-tender, supple Respiratory: clear to auscultation, normal air movement Cardiovascular: regular rate and rhythm Gastrointestinal: bowel sounds, distended, soft Musculoskeletal: nl extremities to inspection, nl gait and stance Neurological: nl mental status Results Result Diagram: 10/12/16 0745 10/12/16 0745 Results 24 hrs Laboratory Tests Test 10/12/16 07:45 White Blood Count 7.6 Red Blood Count 3.39 L Hemoglobin 10.3 L Hematocrit 33.7 L Mean Corpuscular Volume 99.4 Mean Corpuscular Hemoglobin 30.4 Mean Corpuscular Hemoglobin Concent 30.6 L Red Cell Distribution Width 14.3 Platelet Count 163 Mean Platelet Volume 10.3 Neutrophils % 69.8 Lymphocytes % 20.3 Monocytes % 6.3 Eosinophils % 2.8 Basophils % 0.5 Neutrophils # 5.3 Lymphocytes # 1.5 Monocytes # 0.5 Eosinophils # 0.2 Basophils # 0.0 Nucleated Red Blood Cells # 0.0 Sodium Level 141 Potassium Level 5.3 H Chloride Level 99 Carbon Dioxide Level 22 Anion Gap 25 H Blood Urea Nitrogen 53 H Creatinine 7.35 H Glucose Level 170 Calcium Level 7.6 L Total Bilirubin 0.0 L Direct Bilirubin 0.00 Indirect Bilirubin 0.0 Aspartate Amino Transf (AST/SGOT) 11 L Alanine Aminotransferase (ALT/SGPT) 21 Alkaline Phosphatase 79 Total Protein 6.8 Albumin 3.7 Globulin 3.10 Albumin/Globulin Ratio 1.19 Medications Medications Current Medications Metoclopramide HCl (Reglan) 10 mg Q6H IV Last administered on 10/12/16 09:19; Admin Dose 10 MG; Start 10/08/16 at 03:30 Morphine Sulfate (morphine) 2 mg Q4H PRN IV SEVERE PAIN LEVEL 7-10 Last administered on 10/09/16 01:09; Admin Dose 2 MG; Start 10/08/16 at 03:30 Amlodipine Besylate (Norvasc) 5 mg DAILY PO Last administered on 10/11/16 09: 55; Admin Dose 5 MG; Start 10/08/16 at 09:00 Carvedilol (Coreg) 12.5 mg BID PO Last administered on 10/11/16 21:08; Admin Dose 12.5 MG; Start 10/08/16 at 09:00 Clopidogrel Bisulfate (plaVIX) 75 mg DAILY PO Last administered on 10/12/16 08 :19; Admin Dose 75 MG; Start 10/08/16 at 09:00 Furosemide (Lasix) 80 mg BID@18 PO Last administered on 10/12/16 06:01; Admin Dose 80 MG; Start 10/08/16 at 06:00 Gabapentin (Neurontin) 300 mg BID PO Last administered on 10/12/16 08:19; Admin Dose 300 MG; Start 10/08/16 at 09:00 Hydralazine HCl (Apresoline) 25 mg Q8 PO Last administered on 10/12/16 06:01; Admin Dose 25 MG; Start 10/08/16 at 06:00 Magnesium Hydroxide (Milk Of Mag) 30 ml DAILY PO Last administered on 08:20; Admin Dose 30 ML; Start 10/09/16 at 11:30 Docusate Sodium (Colace) 200 mg BID PO Last administered on 10/12/16 08:19; Admin Dose 200 MG; Start 10/09/16 at 12:00 Sodium Biphosphate/ Sodium Phosphate (Fleet Enema) 133 ml DAILY PRN NE CONSTIPATION; Start 10/09/16 at 10:30 Pantoprazole (Protonix Iv) 40 mg BID@06,18 IV Last administered on 10/12/16t 06 :01; Admin Dose 40 MG; Start 10/10/16 at 18:00 Bisacodyl (Dulcolax) 10 mg DAILY PRN PO CONSTIPATION; Start 10/11/16 at 11:00 YORDAN GERARDO NP Oct 12, 2016 10:12
--- NOTE | 2016-10-12 10:26 | PDOCDIS ---
Discharge Instructions CONDITION Patient Condition: Stable HOME CARE INSTRUCTIONS: Special Diet: 1800 RENAL FOLLOW UP/APPOINTMENTS Follow-up Plan 1.Follow up with primary care physician in 1 week If you don't have one please let someone know, we can give you resources that may help you pick one. You may also call your insurance company to assign one to you. Review your medication list with your nurse before leaving and if you need new prescriptions please let your nurse know. I may have made changes to your home medications or given you new prescriptions, please let your primary doctor know as well. Stay compliant with your medications and report any side effects to your PCP or pharmacist. Return to the ER if you have any concerns and cannot reach your doctors or call your insurance company, they usually have a nurse that can help you. YAHIR YAÑEZ NP Oct 12, 2016 10:25
[2016-10-12] MEDS ORDERED: PANT40TA3 PO (10:32)
[2016-10-12] MEDS ORDERED: SUCR1TAB56 PO (10:32)
[2016-10-12] MEDS ORDERED: BISA-57 PO (10:32)
--- NOTE | 2016-10-12 10:49 | DS ---
Date/Time of Note Date/Time of Note DATE: 10/12/16 TIME: 10:48 Discharge Summary Admission/Discharge Info Admit Date/Time Oct 08, 2016 at 01:14 Discharge Date/Time Discharge Diagnosis 1. Abdominal pain/Distention, most likely secondary to severe constipation with severe gastritis. Resolved. 2. End-stage renal disease, on dialysis Saturday, Saturday, Saturday. 3. Coronary artery disease. 4. Hypertension. 5. Severe gastritis. 6 Hyperlipidemia 7. Constipation. Resolved Patient Condition: Stable Consults ,GI ,Nephrology Hospital Course This is a 61-year-old female with a past medical history of essential hypertension, end-stage renal disease who is also on hemodialysis schedule Saturday, Saturday and Saturday, coronary artery disease with cardiac stents placed in [place], hyperlipidemia, cholecystectomy, who presented to the emergency room with complaints of 1 day duration of worsening abdominal pain associated with some nausea with an episode of nonbilious, nonbloody vomiting. Patient also reported slight chills without any fevers upon admission. Patient denied any chest pain, shortness of breath, dysuria, hematuria, loss of consciousness, headache, numbness or other constitutional symptoms. Initial vital signs within acceptable range. Initial labs with hemoglobin 11.2 , 36.5, potassium 5.9, BUN 37, creatinine 6.98. Abdominal x-ray was nonobstructive pattern. Patient was treated with IV fluids, IV Protonix and was admitted for further evaluation. Patient was kept n.p.o. except medication. She was also started on Reglan for bowel motility if indeed this is a gastroparesis. Patient did not have any fever, elevated WBC to suggest any diverticulitis process. She was also given IV fluids hydration. A GI consult also was called for possible endoscopy and gastric emptying study. Patient was resumed on her home medications for underlying coronary artery disease, hypertension and hyperlipidemia. Patient was also noted to have A1c 6.4. Her blood sugar remained stable. Patient was given counseling on diet control. She was also instructed to have A1c redrawn in 4 weeks as outpatient upon discharge. Patient showed improvement in gastric distention, pain and GI upset with Reglan and proton pump inhibitors. She was placed on a clear liquid diet and was able to tolerate. Patient had undergone endoscopy which revealed severe gastritis with a negative H pylori. She was continued on PPI. GI was following patient closely. Patient also had dialysis on her scheduled dialysis days per nephrology recommendation. Blood pressure was monitored closely and there was no incidents during dialysis. Patient had also undergone a gastric emptying study which did not suggest any gastroparesis. Constipation was treated with stool softeners and laxatives. Constipation was resolved with moderate improvement in her symptoms. At this time, she is able to tolerate diet and activities very well. Patient is ready for discharge with a total of 6 weeks Protonix, Carafate and continuation of Reglan that she takes at home. Disposition: Patient will be discharged home with outpatient follow-up. She was instructed to follow-up with the dialysis clinic. She was also instructed to follow-up with primary care physician to redraw her A1c and start medical management if indicated. Currently she was instructed to follow diet and regular exercise. Patient was instructed to call 911 or go to the nearest emergency room if she experience any upper or lower GI bleed episodes, further nausea, vomiting abdominal pain or other discomfort. Patient verbalized discharge instructions. Condition at time of discharge is stable. Approximately 60 minutes was spent in coordinating the discharge of this patient. Case discussed with Dr. Mariscal. Home Meds Active Scripts Sucralfate* (Carafate*) 1 Gm Tab, 1 GM PO AC MEALS AND BEDTIME, #100 TAB Prov:YAÑEZ,YAHIR V. B[employer]CH MAKER HAND 10/12/16 Pantoprazole* (Protonix*) 40 Mg Tablet., 40 MG PO BID, #100 TAB Prov:YAÑEZ,YAHIR V. [employer]CH MAK[employer] HAND 10/12/16 Bisacodyl* (Dulcolax*) 5 Mg Tablet., 10 MG PO DAILY for 30 Days, TAB Prov:YAÑEZ,YAHIR V. [employer]CH [employer] HAND 10/12/16 Gabapentin* (Neurontin*) 300 Mg Capsule, 300 MG PO BID, #60 CAP Prov:ZAYRA,BOLATITO M. 05/19/16 Lactobacillus Acidoph/Bulgaricus* (Floranex*) 1 Each Tablet, 1 TAB PO BID for 30 Days, TAB Prov:ZAYRA,BOLATITO M. 05/19/16 Hydralazine Hcl* (Hydralazine Hcl*) 25 Mg Tab, 25 MG PO Q8 for 30 Days, TAB Prov:ZAYRA,BOLATITO M. 05/19/16 Carvedilol* (Carvedilol*) 12.5 Mg Tablet, 12.5 MG PO BID for 30 Days, TAB 2 Refills Prov:LISSY IVERSON. 05/19/16 Miconazole Nitrate* (Monistat 3*) 24 Gm Cmb.pf.crm, 1 APPFUL VAG HS for 3 Days, TUB X 3 Prov:ANTHONY WATSON [employer] 02/25/16 Reported Medications Selenium Sulfide (Selenium Sulfide) 120 Ml Shampoo, 120 ML TP 2 TIMES WEEKLY 10/09/16 Metoclopramide* (Reglan*) 5 Mg Tablet, 5 MG PO AC MEALS , TAB 10/09/16 Baclofen* (Baclofen*) 10 Mg Tablet, 10 MG PO BID Y for MUSCLE SPASMS, TAB 10/09/16 Atorvastatin* (Atorvastatin*) 80 Mg Tablet, 80 MG PO QHS, #30 TAB 10/09/16 Calcitriol* (Calcitriol*) 0.25 Mcg Capsule, 0.25 MCG PO DAILY, CAP 10/09/16 Hydralazine Hcl* (Hydralazine Hcl*) 100 Mg Tablet, 100 MG PO BID, #90 TAB 10/09/16 Venlafaxine Hcl* (Effexor XR*) 75 Mg Tab.er.24, 75 MG PO DAILY, TAB.SA 10/09/16 Calcium Acetate (Calcium Acetate) 667 Mg Tablet, 667 MG PO WITH MEALS, #30 TAB 10/09/16 Losartan Potassium* (Losartan Potassium*) 50 Mg Tablet, 50 MG PO DAILY, TAB 05/11/16 Furosemide* (Furosemide*) 80 Mg Tablet, 80 MG PO BID, #60 TAB 05/11/16 Amlodipine Besylate* (Norvasc*) 5 Mg Tablet, 5 MG PO DAILY, TAB 10/13/15 Clopidogrel Bisulfate (Clopidogrel) 75 Mg Tablet, 75 MG PO DAILY, TAB 02/26/14 Discontinued Reported Medications Pantoprazole (Protonix) 40 Mg Tabec, 40 MG PO DAILY, TAB 10/09/16 Benazepril Hcl* (Benazepril Hcl*) 40 Mg Tablet, 40 MG PO DAILY, #30 TAB 10/13/15 Tramadol Hcl* (Ultram*) 50 Mg Tablet, 50 MG PO BID Y for PAIN, TAB 05/11/16 Atenolol* (Atenolol*) 50 Mg Tablet, 50 MG PO BID, #60 TAB 10/13/15 Calcium Acetate* (Phoslo*) 667 Mg Tablet, 667 MG PO WITH MEALS, TAB 10/07/15 Polyethylene Glycol* (Miralax*) 17 Gm Powd.pack, 17 GM PO BID, #60 PACKET 10/07/15 Pantoprazole* (Protonix*) 40 Mg Tablet.dr, 40 MG PO DAILY, TAB 10/07/15 Artificial Tears* (Artificial Tears* Ophth) 15 ml Opht, 1 DROP BOTH EYES TID, EA 10/07/15 Lorazepam* (Lorazepam*) 0.5 Mg Tablet, 0.5 MG PO BID Y for ANXIETY, TAB 10/07/15 Insulin Glargine* (Lantus*) 100 Unit/Ml Soln, 15 UNIT SC QHS, #1 VIAL 10/07/15 Gabapentin* (Gabapentin*) 100 Mg Capsule, 100 MG PO TID, #90 CAP 10/07/15 Calcitriol* (Calcitriol*) 0.25 Mcg Capsule, 0.25 MCG PO DAILY, CAP 02/26/14 Sevelamer Hcl* (Renagel*) 800 Mg Tablet, 800 MG PO TID W/ MEALS, TAB 02/26/14 Atorvastatin* (Atorvastatin*) 80 Mg Tablet, 80 MG PO HS, TAB 02/26/14 Discontinued Scripts Albuterol/Ipratropium* (Combivent Respimat*) 20-100 Mcg/Inh - 4 Gm Aer.w.adap, 1 PUFF INHALATION QID for SHORTNESS OF BREATH, #1 INHALER 1 Refill use every 4 hours for the next 48hrs then change to every 4 hours as neededonly for cough and SOB Prov:LISSY IVERSON. 05/19/16 Levofloxacin* (Levofloxacin*) 500 Mg Tablet, 500 MG PO Q48H, #7 TAB Prov:DORON HUIZAR MD 09/21/16 Salmeterol Xinaf/Fluticasone* (Advair*) 250-50 Diskus Inhaler, 1 INH INH BID, # 1 VIAL 2 Refills Prov:LISSY IVERSON M. 05/19/16 Prednisone* (Prednisone*) 5 Mg Tab, 10 MG PO DAILY for 5 Days, TAB Prov:LISSY IVERSON. 05/19/16 Pantoprazole* (Pantoprazole*) 40 Mg Tablet.dr, 40 MG PO BID@06,18 for 14 Days Prov:LISSY IVERSON 05/19/16 Insulin Glargine* (Lantus*) 100 Unit/Ml Soln, 25 UNIT SC DAILY@20 for 30 Days Prov:LISSY IVERSON 05/19/16 Insulin Aspart* (Novolog Insulin Pen*) 100 Unit/Ml Soln, 9 UNIT SC WITH MEALS for 30 Days Prov:LISSY IVERSON 05/19/16 Calcium Acetate* (Calcium Acetate*) 667 Mg Capsule, 667 MG PO WITH MEALS for 30 Days, CAP Prov:LISSY IVERSON 05/19/16 Calcitriol* (Calcitriol*) 0.25 Mcg Capsule, 0.25 MCG PO DAILY for 30 Days, CAP Prov:LISSY IVERSON 05/19/16 Benzocaine/Menthol (SORE THROAT LOZENGE) 1 Each Lozenge, 1 LOZENGE MT Q1H Y for COUGH, #30 LOZENGE Prov:LISSY IVERSON 05/19/16 Amlodipine Besylate* (Norvasc*) 5 Mg Tablet, 5 MG PO DAILY for 30 Days, TAB Prov:LISSY IVERSON 05/19/16 Fluconazole* (Fluconazole*) 150 Mg Tablet, 150 MG PO Q48H, #3 TAB Prov:ANTHONY WATSON [employer] 02/25/16 Tramadol HCl (Tramadol HCl) 50 Mg Tablet, 100 MG PO Q8H Y for PAIN, #20 TAB Prov:ANTHONY WATSON [employer] 02/25/16 Follow-up Plan 1.Follow up with primary care physician in 1 week If you don't have one please let someone know, we can give you resources that may help you pick one. You may also call your insurance company to assign one to you. Review your medication list with your nurse before leaving and if you need new prescriptions please let your nurse know. I may have made changes to your home medications or given you new prescriptions, please let your primary doctor know as well. Stay compliant with your medications and report any side effects to your PCP or pharmacist. Return to the ER if you have any concerns and cannot reach your doctors or call your insurance company, they usually have a nurse that can help you. Primary Care Provider [facility] Pending Labs Laboratory Tests Test 10/12/16 07:45 White Blood Count 7.610^3/ul (4.8-10.8) Red Blood Count 3.3910^6/ul (4.20-5.40) Hemoglobin 10.3g/dl (12.0-16.0) Hematocrit 33.7% (37.0-47.0) Mean Corpuscular Volume 99.4fl (82.0-101.0) Mean Corpuscular Hemoglobin 30.4pg (29.0-33.0) Mean Corpuscular Hemoglobin Concent 30.6g/dl (32.0-37.0) Red Cell Distribution Width 14.3% (11.5-14.5) Platelet Count 77709^3/UL (140-415) Mean Platelet Volume 10.3fl (7.4-10.4) Neutrophils % 69.8% (39.0-77.0) Lymphocytes % 20.3% (15.0-51.0) Monocytes % 6.3% (0.0-11.0) Eosinophils % 2.8% (0.0-7.0) Basophils % 0.5% (0.0-2.0) Neutrophils # 5.310^3/ul (1.6-7.5) Lymphocytes # 1.510^3/ul (0.8-2.9) Monocytes # 0.510^3/ul (0.3-0.9) Eosinophils # 0.210^3/ul (0.0-0.5) Basophils # 0.010^3/ul (0.0-0.1) Nucleated Red Blood Cells # 0.010^3/ul (0.0-0.0) Sodium Level 141mmol/L (135-144) Potassium Level 5.3mmol/L (3.5-5.1) Chloride Level 99mmol/L (97-110) Carbon Dioxide Level 22mmol/L (21-31) Anion Gap 25 (8-16) Blood Urea Nitrogen 53mg/dl (7-20) Creatinine 7.35mg/dl (0.44-1.00) Glucose Level 170mg/dl (70-220) Calcium Level 7.6mg/dl (8.4-10.2) Total Bilirubin 0.0mg/dl (0.2-1.3) Direct Bilirubin 0.00mg/dl (0.00-0.20) Indirect Bilirubin 0.0mg/dl (0-1.1) Aspartate Amino Transf (AST/SGOT) 11IU/L (15-46) Alanine Aminotransferase (ALT/SGPT) 21IU/L (13-69) Alkaline Phosphatase 79IU/L (42-121) Total Protein 6.8g/dl (6.1-8.1) Albumin 3.7g/dl (3.3-4.9) Globulin 3.10g/dl (1.3-3.2) Albumin/Globulin Ratio 1.19 YAHIR YAÑEZ V. B[employer]CH MAKER HAND Oct 12, 2016 10:49
[2016-10-13] MEDS ORDERED: PANTOPRAZOLE (EC) 40 MG TAB PO SCH (06:00)
--- NOTE | 2016-10-15 05:18 | GILP ---
DATE OF PROCEDURE: 10/10/2016 PROCEDURE: ESOPHAGOGASTRODUODENOSCOPY WITH BIOPSIES HISTORY AND INDICATIONS: The patient is being evaluated for persistent nausea and vomiting, suspected gastroparesis. PREMEDICATION: Monitored anesthesia care by anesthesiologist. INSTRUMENT USED: Olympus endoscope. TECHNIQUE: After informed consent, with the patient/relatives understanding the procedure, its indications, potential risks and complications, including but not limited to: allergic reaction, bleeding, perforation or infection, and after all pertinent questions were answered to the patients satisfaction, the patient/relatives signed witnessed informed consent. Following this, premedication was administered slowly IV push under careful cardiovascular and respiratory monitoring with pulse oximetry, automatic blood pressure and inside sales account executive. Once the sedative effect was achieved the patient was place in the left lateral decubitus, the panendoscope was introduced and advanced under visual control. Careful examination of the upper gastrointestinal tract, both on insertion as well as withdrawal of the instrument disclosed the following findings: ESOPHAGUS: The mucosa of the entire esophagus appears within normal limits. There is no evidence of esophagitis, varices, neoplasm or stricture. No Hiatal Hernia identified. STOMACH: Upon entrance to the stomach air was insufflated, the gastric rodriguez distended normally. There is severe erythema and edema of the mucosa in a diffuse pattern. Biopsies were obtained to rule out H. pylori infection. Of note, there is no significant retained material in the stomach. PYLORUS: The pylorus appears patent and within normal limits. DUODENUM: The duodenal mucosa was carefully examined in the duodenal bulb as well as the second portion of the duodenum and appears unremarkable with no evidence of duodenitis, ulcer or neoplasm. The instrument was then withdrawn, the patient tolerated the procedure well and was transfer out of the endoscopy suite awake, and in good condition to continue recovery under observation. IMPRESSION: Severe gastritis. Rule out Helicobacter pylori infection. Biopsies obtained. PLAN: The patient will be treated with PPI. Pathology will review when available. A gastric emptying study will be obtained and reviewed. Dictated By: Noemi Tavares MD /ihsan/rosalie /Document#: [id number]
== END 2016-10-12 18:37 | disposition home or self-care (01) | DRG 391 ==
LOC: E/R 20:07 → MS3 10-08 01:14 → MS4 10-08 19:58 → MS3 10-08 20:23 → TEL 10-08 21:46
PROVIDERS: ADMIT Family Medicine; ATTEND Family Medicine
PROC: 5A1D60Z (ICD-10-PCS; 2016-10-08)
PROC: 0DB68ZX Excision of Stomach, Via Natural or Artificial Opening Endoscopic, Diagnostic (ICD-10-PCS; principal; 2016-10-10 16:30)
DX: K29.60 Other gastritis without bleeding (principal); N18.6 End stage renal disease; E11.22 Type 2 diabetes mellitus with diabetic chronic kidney disease; K31.84 Gastroparesis; N17.9 Acute kidney failure, unspecified; E11.43 Type 2 diabetes mellitus with diabetic autonomic (poly)neuropathy; I12.0 Hypertensive chronic kidney disease with stage 5 chronic kidney disease or end stage renal disease; E87.5 Hyperkalemia; E83.9 Disorder of mineral metabolism, unspecified; K57.92 Diverticulitis of intestine, part unspecified, without perforation or abscess without bleeding; K59.00 Constipation, unspecified; I25.10 Atherosclerotic heart disease of native coronary artery without angina pectoris; D63.8 Anemia in other chronic diseases classified elsewhere; E78.5 Hyperlipidemia, unspecified; Z79.4 Long term (current) use of insulin; Z99.2 Dependence on renal dialysis; Z95.5 Presence of coronary angioplasty implant and graft
CPT/HCPCS: 71010; 74000; 78264; 80053; 82150; 82962; 83036; 83690; 83735; 84100; 84443; 84484; 85025; 85610; 85730; 87040; 87081; 87086; 88305; 88312; 90935; 93005; A9541; C9113; J2270; J2765; J7030

== ENCOUNTER 2016-12-09 19:19 | Emergency (ER) | payer OTHER ==
[~2016-12-09] VITALS: Ht 157.5 cm; Wt 80.0 kg
[~2016-12-09 19:19] MED LIST changes: -ADV25050 INH; -ATEN50TA PO; +BACL10TA PO; -BENA40TA41 PO; -BENZ1LOZ4 MT; +BISA-57 PO; -CALC667C PO; +CALC667T PO; -CALC667T2 PO; -FLUC150T41 PO; -GABA100C14 PO; +HYDR100T25 PO; -IPRA4AER INHALATION; -LANT3I SC; -LEVO500T10 PO; -LORA0.5T PO; +METO5TAB58 PO; -NOVO3I SC; -PANT40TA4 PO; -POLY15DR42 BOTH EYES; -POLY17PO6 PO; -PRED5 PO; +SELE120S4 TP; -SEVE800T10 PO; +SUCR1TAB56 PO; -TRAM-40 PO; -TRAM50TA2 PO; +VENL75TA2 PO
[2016-12-09 19:22] VITALS: Ht 157.5 cm; Wt 80.0 kg
[2016-12-09] MEDS ORDERED: HYDROmorphONE 1 MG/ML SYG IV STA (20:16)
[2016-12-09] MEDS ORDERED: ONDANSETRON 4 MG INJ IV STA (20:16)
[2016-12-09 20:50] LABS: BASOPHIL # 0.1 10^3/ul (0.0-0.1); BASOPHILS % 0.5 % (0.0-2.0); EOSINOPHILS # 0.2 10^3/ul (0.0-0.5); HEMATOCRIT 35.3 % (37.0-47.0); LYMPHOCYTES # 1.4 10^3/ul (0.8-2.9); LYMPHOCYTES % 13.9 % (15.0-51.0); MEAN CORPUSCULAR HEMOGLOBIN 29.6 pg (29.0-33.0); MEAN CORPUSCULAR HGB CONC 31.2 g/dl (32.0-37.0); MEAN CORPUSCULAR VOLUME 94.9 fl (82.0-101.0); MEAN PLATELET VOLUME 10.4 fl (7.4-10.4); MONOCYTE # 0.5 10^3/ul (0.3-0.9); MONOCYTES % 4.9 % (0.0-11.0); NEUTROPHIL # 7.7 10^3/ul (1.6-7.5); NEUTROPHILS % 78.3 % (39.0-77.0); PLATELET COUNT 224 10^3/UL (140-415); RED BLOOD COUNT 3.72 10^6/ul (4.20-5.40); RED CELL DISTRIBUTION WIDTH 15.1 % (11.5-14.5); WHITE BLOOD COUNT 9.9 10^3/ul (4.8-10.8)
[2016-12-09 21:17] LABS: ALBUMIN 4.2 g/dl (3.3-4.9); ALBUMIN/GLOBULIN RATIO 1.1; CALCIUM 7.5 mg/dl (8.4-10.2); CREATININE 8.15 mg/dl (0.44-1.00)
[2016-12-09 21:54] LABS: POTASSIUM 5.7 mmol/L (3.5-5.1)
--- NOTE | 2016-12-09 23:37 | RADRPT ---
PROCEDURE: CT ABDOMEN/PELVIS WITHOUT CONTRAST CLINICAL INDICATION: 61-year-old female with right-sided abdominal pain. The patient has a history of end-stage renal disease. TECHNIQUE: The study was performed utilizing a GE Fisocpeed VCT 64-slice CT scanner. Direct axia l sections were obtained through the abdomen and pelvis without the use of intravenous contrast mate rial. Sagittal and coronal reformations were obtained. One or more of the following dose reduction t echniques were utilized: automated exposure control, adjustment of the mA and/or kV according to pat ient's size or use of iterative reconstruction technique. [facility]D/vol = 20.3 mGy; Total Exam DLP = 1190.6 mGy-cm. COMPARISON: CT abdomen/pelvis March 01, 2016. FINDINGS: Mild cardiomegaly is noted. Coronary artery calcifications are visualized. There is minimal bibasila r subsegmental atelectasis. There is no evidence for significant pleural effusion. The liver has a normal size and contour without focal areas of abnormal density. No intrahepatic nor extrahepatic b iliary ductal dilatation is seen. The gallbladder is not visualized consistent with prior cholecyste ctomy. The pancreas is without areas of abnormal attenuation. The spleen is large having a maximal length of 15.4 cm. There is a hypodense cystic ovoid focus within the ventral aspect of the spleen m easuring approximately 2.3 x 2.4 x 2.4 cm without significant interval change.. The adrenal glands a re unremarkable. The kidneys are atrophic bilaterally with vascular calcifications. No hydroureteron ephrosis nor nephroureterolithiasis is evident. The urinary bladder contains minimal urine. There is mild diffuse thickening of the ascending and transverse colon without obstruction. Multiple small diverticula are seen within the ascending and sigmoid colon without surrounding inflammatory changes . The periappendiceal region is without inflammatory changes. The uterus is anteflexed and atrophic. There is no significant pelvic free fluid. The aortoiliac vessels are calcified but without aneurys mal dilatation. The osseous structures are intact. IMPRESSION: 1. Mild diffuse thickening of the ascending and transverse colon suggestive of a colitis. 2. Colonic diverticulosis most prominently within the sigmoid region. 3. Mild splenomegaly with stable splenic cystic lesion. 4. Status post cholecystectomy. 5. Vascular calcifications. .Kenneth Mckeon MD, MD Date Time Electronically viewed and signed by .Kenneth Mckeon MD, MD on 12/09/2016 23:37 ./
[2016-12-10] MEDS ORDERED: HYDR-906 PO (00:20)
[2016-12-10] MEDS ORDERED: METR500T PO (00:20)
[2016-12-10] MEDS ORDERED: CIPR500T4 PO (00:20)
--- NOTE | 2016-12-10 00:24 | ERD ---
ER Documentation Chief Complaint Date/Time DATE: 12/10/16 TIME: 00:20 Chief Complaint RUQ pain for 2 days HPI This is a 61-year-old female who is complaining of 2 days of right-sided abdominal pain with nausea but no vomiting or diarrhea no fever. She says the pain is constant achy. Denies any back pain. The patient is on hemodialysis and goes on Saturday. Her last dialysis was on Saturday. She is scheduled for dialysis tomorrow. The patient states the pain is not like gallstone pain she has had her gallbladder removed and her appendix ROS All systems reviewed and are negative except as per history of present illness. Medications Home Meds Active Scripts Hydrocodone/Acetaminophen ([place] 5-325 Tablet) 1 Each Tablet, 1 TAB PO Q6H Y for PAIN, #20 TAB Prov:MARTHA HOLLEY. DO 12/10/16 Metronidazole* (Flagyl*) 500 Mg Tablet, 500 MG PO TID for 10 Days, TAB Prov:MARTHA HOLLEY A. DO 12/10/16 Ciprofloxacin Hcl* (Ciprofloxacin Hcl*) 500 Mg Tablet, 500 MG PO BID for 10 Days , TAB Prov:MARSHAOSMAYNORSTOLOS A. DO 12/10/16 Sucralfate* (Carafate*) 1 Gm Tab, 1 GM PO AC MEALS AND BEDTIME, #100 TAB Prov:YAHIR YAÑEZ V. SUPERVISOR [employer] 10/12/16 Pantoprazole* (Protonix*) 40 Mg Tablet.dr, 40 MG PO BID, #100 TAB Prov:YAÑEZYAHIR V. SUPERVISOR [employer] 10/12/16 Bisacodyl* (Dulcolax*) 5 Mg Tablet.dr, 10 MG PO DAILY for 30 Days, TAB Prov:YAÑEZYAHIR V. SUPERVISOR [employer] 10/12/16 Gabapentin* (Neurontin*) 300 Mg Capsule, 300 MG PO BID, #60 CAP Prov:LISSY IVERSON M. 05/19/16 Lactobacillus Acidoph/Bulgaricus* (Floranex*) 1 Each Tablet, 1 TAB PO BID for 30 Days, TAB Prov:LISSY IVERSON M. 05/19/16 Hydralazine Hcl* (Hydralazine Hcl*) 25 Mg Tab, 25 MG PO Q8 for 30 Days, TAB Prov:LISSY IVERSON. 05/19/16 Carvedilol* (Carvedilol*) 12.5 Mg Tablet, 12.5 MG PO BID for 30 Days, TAB 2 Refills Prov:LISSY IVERSON. 05/19/16 Miconazole Nitrate* (Monistat 3*) 24 Gm Cmb.pf.crm, 1 APPFUL VAG HS for 3 Days, TUB X 3 Prov:ANTHONY WATSON SUPERVISOR [employer] 02/25/16 Reported Medications Selenium Sulfide (Selenium Sulfide) 120 Ml Shampoo, 120 ML TP 2 TIMES WEEKLY 10/09/16 Metoclopramide* (Reglan*) 5 Mg Tablet, 5 MG PO AC MEALS , TAB 10/09/16 Baclofen* (Baclofen*) 10 Mg Tablet, 10 MG PO BID Y for MUSCLE SPASMS, TAB 10/09/16 Atorvastatin* (Atorvastatin*) 80 Mg Tablet, 80 MG PO QHS, #30 TAB 10/09/16 Calcitriol* (Calcitriol*) 0.25 Mcg Capsule, 0.25 MCG PO DAILY, CAP 10/09/16 Hydralazine Hcl* (Hydralazine Hcl*) 100 Mg Tablet, 100 MG PO BID, #90 TAB 10/09/16 Venlafaxine Hcl* (Effexor XR*) 75 Mg Tab.er.24, 75 MG PO DAILY, TAB.SA 10/09/16 Calcium Acetate (Calcium Acetate) 667 Mg Tablet, 667 MG PO WITH MEALS, #30 TAB 10/09/16 Losartan Potassium* (Losartan Potassium*) 50 Mg Tablet, 50 MG PO DAILY, TAB 05/11/16 Furosemide* (Furosemide*) 80 Mg Tablet, 80 MG PO BID, #60 TAB 05/11/16 Amlodipine Besylate* (Norvasc*) 5 Mg Tablet, 5 MG PO DAILY, TAB 10/13/15 Clopidogrel Bisulfate (Clopidogrel) 75 Mg Tablet, 75 MG PO DAILY, TAB 02/26/14 Allergies Allergies: Coded Allergies: acetaminophen (Verified Adverse Reaction, Intermediate, itching, nausea, ) PMhx/Soc History of Surgery: Yes (STENT, JOSEPH, appy) Anesthesia Reaction: No Hx Neurological Disorder: Yes (STROKE 2013) Hx Respiratory Disorders: Yes (ASTHMA) Hx Cardiac Disorders: Yes (HTN, HIGH CHOLESTEROL) Hx Psychiatric Problems: No Hx Miscellaneous Medical Probl: No Hx Alcohol Use: No Hx Substance Use: No Hx Tobacco Use: No Smoking Status: Never smoker FmHx Family History: No coronary disease Physical Exam Vitals Vital Signs Date Time Temp Pulse Resp B/P Pulse Ox O2 Delivery O2 Flow Rate FiO2 12/09/16 19:22 98.3 87 20 171/71 95 Physical Exam Const: Well-developed, well-nourished Head: Atraumatic, normocephalic Eyes: Normal Conjunctiva, PERRLA, EOMI, normal sclera, no nystagmus ENT: Normal External Ears, Nose and Mouth, moist mucus membranes. Neck: Full range of motion. No meningismus, no lymphadenopathy. Resp: Clear to auscultation bilaterally, no wheezing, rhonchi, rales Cardio: Regular rate and rhythm, no murmurs, S1 S2 present Abd: Soft, mild to moderate right mid abdominal and lower abdominal tenderness non distended. Normal bowel sounds, no guarding or rebound, no pulsitile abdominal masses or bruits Skin: No petechiae or rashes, no ecchymosis , no maculopapular rash Back: No midline or flank tenderness Ext: No cyanosis, or edema, FROM x 4, normal inspection, neurovascularly intact x 4 Neur: Awake and alert, STR 5/5 x 4, sensation intact x 4, no focal findings, cerebellum intact Psych: Normal Mood and Affect Result Diagram: 12/09/16203712/09/162037 Results 24 hrs Laboratory Tests Test 12/09/16 20:38 White Blood Count 9.910^3/ul Red Blood Count 3.7210^6/ul Hemoglobin 11.0g/dl Hematocrit 35.3% Mean Corpuscular Volume 94.9fl Mean Corpuscular Hemoglobin 29.6pg Mean Corpuscular Hemoglobin Concent 31.2g/dl Red Cell Distribution Width 15.1% Platelet Count 56035^3/UL Mean Platelet Volume 10.4fl Neutrophils % 78.3% Lymphocytes % 13.9% Monocytes % 4.9% Eosinophils % 2.0% Basophils % 0.5% Nucleated Red Blood Cells % 0.0/100WBC Neutrophils # 7.710^3/ul Lymphocytes # 1.410^3/ul Monocytes # 0.510^3/ul Eosinophils # 0.210^3/ul Basophils # 0.110^3/ul Nucleated Red Blood Cells # 0.010^3/ul Sodium Level 137mmol/L Potassium Level 5.7mmol/L Chloride Level 97mmol/L Carbon Dioxide Level 25mmol/L Anion Gap 21 Blood Urea Nitrogen 59mg/dl Creatinine 8.15mg/dl Glucose Level 176mg/dl Calcium Level 7.5mg/dl Total Bilirubin 0.0mg/dl Direct Bilirubin 0.00mg/dl Indirect Bilirubin 0.0mg/dl Aspartate Amino Transf (AST/SGOT) 18IU/L Alanine Aminotransferase (ALT/SGPT) 28IU/L Alkaline Phosphatase 96IU/L Total Protein 8.0g/dl Albumin 4.2g/dl Globulin 3.80g/dl Albumin/Globulin Ratio 1.10 Lipase 113U/L Current Medications Medications (Trade) Dose Ordered Sig/Daniel Route PRN Reason Start Time Stop Time Status Last Admin Dose Admin Hydromorphone HCl (Dilaudid) 1 mg ONCE STAT IV 12/09/16 20:16 12/09/16 20:17 DC 12/09/16 20:56 Ondansetron HCl (Zofran Inj) 4 mg ONCE STAT IV 12/09/16 20:16 12/09/16 20:17 DC 12/09/16 20:56 Sodium Polystyrene Sulfonate (Kayexalate) 30 gm ONCE ONCE PO 12/10/16 00:30 12/10/16 00:31 Procedures/MDM PROCEDURE: CT ABDOMEN/PELVIS WITHOUT CONTRAST CLINICAL INDICATION: 61-year-old female with right-sided abdominal pain. The patient has a history of end-stage renal disease. TECHNIQUE: The study was performed utilizing a [employer] VCT 64-slice CT scanner. Direct axial sections were obtained through the abdomen and pelvis without the use of intravenous contrast material. Sagittal and coronal reformations were obtained. One or more of the following dose reduction techniques were utilized: automated exposure control, adjustment of the mA and/ or kV according to patient's size or use of iterative reconstruction technique. The images were reviewed on a PACS workstation. CTD/vol = 20.3 mGy; Total Exam DLP = 1190.6 mGy-cm. COMPARISON: CT abdomen/pelvis March 01, 2016. FINDINGS: Mild cardiomegaly is noted. Coronary artery calcifications are visualized. There is minimal bibasilar subsegmental atelectasis. There is no evidence for significant pleural effusion. The liver has a normal size and contour without focal areas of abnormal density. No intrahepatic nor extrahepatic biliary ductal dilatation is seen. The gallbladder is not visualized consistent with prior cholecystectomy. The pancreas is without areas of abnormal attenuation. The spleen is large having a maximal length of 15.4 cm. There is a hypodense cystic ovoid focus within the ventral aspect of the spleen measuring approximately 2.3 x 2.4 x 2.4 cm without significant interval change.. The adrenal glands are unremarkable. The kidneys are atrophic bilaterally with vascular calcifications. No hydroureteronephrosis nor nephroureterolithiasis is evident. The urinary bladder contains minimal urine. There is mild diffuse thickening of the ascending and transverse colon without obstruction. Multiple small diverticula are seen within the ascending and sigmoid colon without surrounding inflammatory changes. The periappendiceal region is without inflammatory changes. The uterus is anteflexed and atrophic. There is no significant pelvic free fluid. The aortoiliac vessels are calcified but without aneurysmal dilatation. The osseous structures are intact. IMPRESSION: 1. Mild diffuse thickening of the ascending and transverse colon suggestive of a colitis. 2. Colonic diverticulosis most prominently within the sigmoid region. 3. Mild splenomegaly with stable splenic cystic lesion. 4. Status post cholecystectomy. 5. Vascular calcifications. .Kenneth Mckeon MD, Date Time Electronically viewed and signed by .Kenneth Mckeon MD, on 12/09/2016 23:37 .M/ CC: MARTHA HOLLEY DO Patient has colitis. The patient will be treated with antibiotics Cipro and Flagyl as well as pain control with Ultram. Patient potassium is 5.7. Gave her dose of Kayexalate here and she will get dialysis tomorrow to balance out her potassium levels. The patient was given a copy of her blood work. Departure Diagnosis: Primary Impression: Colitis Condition: Stable Patient Instructions: Abdominal Pain MARTHA HOLLEY DO Dec 10, 2016 00:24
[2016-12-10] MEDS ORDERED: NA POLYST SULFON 15 GM/60 ML BTL PO ONE (00:30)
[2016-12-10 00:43] VITALS: BP 138/52; PULSE 81; RESP 17; TEMP 97.9
== END 2016-12-10 00:44 | disposition home or self-care (01) ==
LOC: E/R 19:19
DX: K52.9 Noninfective gastroenteritis and colitis, unspecified (principal); I10 Essential (primary) hypertension; J45.909 Unspecified asthma, uncomplicated
CPT/HCPCS: 36415; 74176; 80053; 83690; 85025; 96374; 96375; J1170; J2405; Z7502; Z7610

== ENCOUNTER 2017-02-02 10:32 | Inpatient (IN) | payer OTHER ==
[~2017-02-02] VITALS: Ht 152.4 cm; Wt 78.6 kg
[~2017-02-02 10:32] MED LIST changes: +CIPR500T4 PO; +HYDR-906 PO; +METR500T PO
[2017-02-02] MEDS ORDERED: morphine 4 MG/ML VIAL IV STA (10:56)
[2017-02-02] MEDS ORDERED: ONDANSETRON 4 MG INJ IV STA (10:56)
[2017-02-02 11:44] LABS: ADD UMIC YES; UR ASCORBIC ACID NEGATIVE (NEGATIVE); UR BACTERIA MANY /HPF (NONE SEEN); UR BILIRUBIN (Dip) NEGATIVE (NEGATIVE); UR BLOOD (Dip) NEGATIVE (NEGATIVE); UR CLARITY SLIGHTLY CLOUDY (CLEAR); UR COLOR YELLOW (YELLOW); UR GLUCOSE (Dip) 3+ mg/dL (NEGATIVE); UR KETONES (Dip) NEGATIVE (NEGATIVE); UR LEUKOCYTE ESTERASE (Dip) TRACE Leu/ul (NEGATIVE); UR NITRITE (Dip) NEGATIVE (NEGATIVE); UR RBC 1 /HPF (0-5); UR SPECIFIC GRAVITY (Dip) 1.007 (1.003-1.030); UR SQUAMOUS EPITHELIAL CELL MODERATE /HPF (FEW); UR TOTAL PROTEIN (Dip) 3+ mg/dl (NEGATIVE); UR UROBILINOGEN (Dip) NEGATIVE (NEGATIVE)
[2017-02-02 11:45] LABS: BASOPHIL # 0.1 10^3/ul (0.0-0.1); BASOPHILS % 0.6 % (0.0-2.0); EOSINOPHILS # 0.1 10^3/ul (0.0-0.5); HEMATOCRIT 39.7 % (37.0-47.0); HEMOGLOBIN 12.1 g/dl (12.0-16.0); LYMPHOCYTES # 1.3 10^3/ul (0.8-2.9); LYMPHOCYTES % 15.6 % (15.0-51.0); MEAN CORPUSCULAR HEMOGLOBIN 28.9 pg (29.0-33.0); MEAN CORPUSCULAR HGB CONC 30.5 g/dl (32.0-37.0); MEAN PLATELET VOLUME 10.2 fl (7.4-10.4); MONOCYTE # 0.4 10^3/ul (0.3-0.9); MONOCYTES % 4.8 % (0.0-11.0); NEUTROPHIL # 6.5 10^3/ul (1.6-7.5); NEUTROPHILS % 77.6 % (39.0-77.0); PLATELET COUNT 221 10^3/UL (140-415); RED BLOOD COUNT 4.18 10^6/ul (4.20-5.40); RED CELL DISTRIBUTION WIDTH 15.3 % (11.5-14.5); WHITE BLOOD COUNT 8.3 10^3/ul (4.8-10.8)
[2017-02-02] MEDS ORDERED: ALBUTEROL 0.083% (NEB) 2.5 MG/3 ML AMP NEB STA (11:45)
[2017-02-02] MEDS ORDERED: IPRATROPIUM (NEB) 0.5 MG/2.5 ML AMP NEB STA (11:45)
--- NOTE | 2017-02-02 11:46 | RADRPT ---
PROCEDURE: XR Chest. CLINICAL INDICATION: 61-year-old female with shortness of breath. TECHNIQUE: Single frontal view of the chest was obtained. COMPARISON: Chest x-ray 10/07/2016 09:42 p.m. FINDINGS: Monitoring electrodes project across the chest. Artifacts from the patient's prior noted, lower thor acic spine. Degenerative osteophytes are present in the thoracic spine. The heart, cardiomediastin al silhouette and hilar structures are normal. The pulmonary vasculature is normal. . There are vas cular calcifications in the aortic arch. There is a suboptimal inspiration with some increased densi ty noted on the lower left heart border. This may reflect atelectasis. The costophrenic angles are normal. IMPRESSION: 1. Suboptimal inspiration with suspected atelectasis versus epicardial fat pad along the lower left heart border. No evidence of active cardiopulmonary disease. 2. Atherosclerosis of the aortic arch. 3. Obesity. 4. Spondylosis of the thoracic spine. RPTAT:AAJJ Physician Chay Date Time Electronically viewed and signed by Physician Chay on 02/02/2017 11:45 PREET/
[2017-02-02 11:58] LABS: PROTIME 13.2 Sec (12.2-14.2)
[2017-02-02 11:59] LABS: ALBUMIN 4.4 g/dl (3.3-4.9); ALBUMIN/GLOBULIN RATIO 1.33; BILIRUBIN,INDIRECT 0.2 mg/dl (0-1.1); BILIRUBIN,TOTAL 0.2 mg/dl (0.2-1.3); CALCIUM 8.3 mg/dl (8.4-10.2); CREATININE 4.88 mg/dl (0.44-1.00); POTASSIUM 3.6 mmol/L (3.5-5.1); TOTAL PROTEIN 7.7 g/dl (6.1-8.1)
[2017-02-02 12:11] LABS: CK-MB 0.86 ng/ml (0.0-2.4); TROPONIN-I 0.012 ng/ml (0.00-0.12)
[2017-02-02] MEDS ORDERED: SOD CHLORIDE 0.9% 500 ML IV STA (12:23)
[2017-02-02] MEDS ORDERED: CEFTRIAXONE 1 GM/50 ML (PMX) 50 ML IVPB ONE (12:30)
[2017-02-02 12:52] LABS: T3 UPTAKE 36.3 % (23.5-40.5)
--- NOTE | 2017-02-02 13:18 | ERD ---
ER Documentation Chief Complaint Chief Complaint Complains of SOB hx of Dialysis HPI This is a 61-year-old female with a known history of end-stage renal disease on hemodialysis who his rn unit manager is Dr. Majano and receives her dialysis every Saturday and Saturday. The patient indicates that over the past several days she has had generalized myalgias a decrease in appetite but denies a tactile fever shaking or chills. The patient does make urine and complains of frequency urgency and dysuria. The patient had a recent hospitalization several months ago for acute colitis but this time denies any abdominal pain. The patient also indicates she has been having mild shortness of breath at rest but not during exertion. She denies any recent travel or prolonged immobilization. She states she has had this in the past and denies any swelling of her lower extremities. She indicates she does not have a history of congestive heart failure. She denies a productive or nonproductive cough. ROS All systems reviewed and are negative except as per history of present illness. Medications Home Meds Active Scripts Hydrocodone/Acetaminophen ([place] 5-325 Tablet) 1 Each Tablet, 1 TAB PO Q6H Y for PAIN, #20 TAB Prov:MARTHA HOLLEY DO 12/10/16 Sucralfate* (Carafate*) 1 Gm Tab, 1 GM PO AC MEALS AND BEDTIME, #100 TAB Prov:YAÑEZSHEREEA VColin BRANCH CONTROLLER 10/12/16 Pantoprazole* (Protonix*) 40 Mg Tablet., 40 MG PO BID, #100 TAB Prov:YAÑEZ,YAHIR V. BRANCH CONTROLLER 10/12/16 Bisacodyl* (Dulcolax*) 5 Mg Tablet.dr, 10 MG PO DAILY for 30 Days, TAB Prov:YAÑEZ,YAHIR V. BRANCH CONTROLLER 10/12/16 Gabapentin* (Neurontin*) 300 Mg Capsule, 300 MG PO BID, #60 CAP Prov:LISSY IVERSON 05/19/16 Lactobacillus Acidoph/Bulgaricus* (Floranex*) 1 Each Tablet, 1 TAB PO BID for 30 Days, TAB Prov:LISSY IVERSON 05/19/16 Carvedilol* (Carvedilol*) 12.5 Mg Tablet, 12.5 MG PO BID for 30 Days, TAB 2 Refills Prov:LISSY IVERSON 05/19/16 Reported Medications Selenium Sulfide (Selenium Sulfide) 120 Ml Shampoo, 120 ML TP 2 TIMES WEEKLY 10/09/16 Metoclopramide* (Reglan*) 5 Mg Tablet, 5 MG PO AC MEALS , TAB 10/09/16 Baclofen* (Baclofen*) 10 Mg Tablet, 10 MG PO BID Y for MUSCLE SPASMS, TAB 10/09/16 Atorvastatin* (Atorvastatin*) 80 Mg Tablet, 80 MG PO QHS, #30 TAB 10/09/16 Calcitriol* (Calcitriol*) 0.25 Mcg Capsule, 0.25 MCG PO DAILY, CAP 10/09/16 Hydralazine Hcl* (Hydralazine Hcl*) 100 Mg Tablet, 100 MG PO BID, #90 TAB 10/09/16 Venlafaxine Hcl* (Effexor XR*) 75 Mg Tab.er.24, 75 MG PO DAILY, TAB.SA 10/09/16 Calcium Acetate (Calcium Acetate) 667 Mg Tablet, 667 MG PO WITH MEALS, #30 TAB 10/09/16 Losartan Potassium* (Losartan Potassium*) 50 Mg Tablet, 50 MG PO DAILY, TAB 05/11/16 Furosemide* (Furosemide*) 80 Mg Tablet, 80 MG PO BID, #60 TAB 05/11/16 Amlodipine Besylate* (Norvasc*) 5 Mg Tablet, 5 MG PO DAILY, TAB 10/13/15 Clopidogrel Bisulfate (Clopidogrel) 75 Mg Tablet, 75 MG PO DAILY, TAB 02/26/14 Discontinued Scripts Metronidazole* (Flagyl*) 500 Mg Tablet, 500 MG PO TID for 10 Days, TAB Prov:MARTHA HOLLEY DO 12/10/16 Ciprofloxacin Hcl* (Ciprofloxacin Hcl*) 500 Mg Tablet, 500 MG PO BID for 10 Days , TAB Prov:MAYNOR HOLLEYSTOLOS A. DO 12/10/16 Hydralazine Hcl* (Hydralazine Hcl*) 25 Mg Tab, 25 MG PO Q8 for 30 Days, TAB Prov:CASANDRA IVERSONNOELLE Boateng. 05/19/16 Miconazole Nitrate* (Monistat 3*) 24 Gm Cmb.pf.crm, 1 APPFUL VAG HS for 3 Days, TUB X 3 Prov:ANTHONY WATSON BRANCH CONTROLLER 02/25/16 Allergies Allergies: Coded Allergies: acetaminophen (Verified Adverse Reaction, Intermediate, itching, nausea, ) PMhx/Soc History of Surgery: Yes (STENT, JOSEPH, appy) Anesthesia Reaction: No Hx Neurological Disorder: Yes (STROKE 2014) Hx Respiratory Disorders: Yes (ASTHMA) Hx Cardiac Disorders: Yes (HTN, HIGH CHOLESTEROL) Hx Psychiatric Problems: No Hx Miscellaneous Medical Probl: No (dialysis esrd) Hx Alcohol Use: No Hx Substance Use: No Hx Tobacco Use: No Smoking Status: Never smoker Physical Exam Vitals Vital Signs Date Time Temp Pulse Resp B/P Pulse Ox O2 Delivery O2 Flow Rate FiO2 02/02/17 12:14 79 18 92 21 02/02/17 10:35 98.0 99 20 167/77 93 Physical Exam Constitutional:Well-developed. Well-nourished. Not in respiratory distress. HEENT:Normocephalic. Atraumatic.Pupils were equal round reactive to light. Moist mucous membranes.No tonsillar exudates. Neck: No nuchal rigidity. No lymphadenopathy. No posterior cervical spine tenderness or step-offs. Respiratory: Not using accessory muscles of respiration.Lungs were clear to auscultation bilaterally. No rhonchi. No rales. No wheezing. Cardiovascular: Regular rate regular rhythm.No murmurs. No rubs were appreciated.S1, S2 normal. Distal pulses are palpable 2+ bilaterally. GI: Abdomen was soft. Nontender. Non Distended. No pulsatile abdominal masses or bruits. No rebound. No guarding. Bowel sounds were present and normal. Muscle skeletal: Full range of motion of both the upper and lower extremities bilaterally.Normal muscle tone.No assymetrical calf tenderness or swelling. Skin: No petechia, no purpura. No lesions on the palms or the soles of the feet. No maculopapular rash. Thrill and bruit of the left upper extremity fistula NEURO: Patient was alert, awake, orientated x3.No facial droop. Gait observed and normal with no ataxia.Speech had regular rate and rhythm. No focal neurological deficits. Result Diagram: 02/02/17 1125 02/02/17 1125 Results 24 hrs Laboratory Tests Test 02/02/17 11:05 02/02/17 11:25 02/02/17 12:00 Urine Color YELLOW Urine Clarity SLIGHTLY CLOUDY Urine pH 8.0 Urine Specific [place] 1.007 Urine Ketones NEGATIVEmg/dL Urine Nitrite NEGATIVEmg/dL Urine Bilirubin NEGATIVEmg/dL Urine Urobilinogen NEGATIVEmg/dL Urine Leukocyte Esterase TRACELeu/ul Urine Microscopic RBC 1/HPF Urine Microscopic WBC 6/HPF Urine Squamous Epithelial Cells MODERATE/HPF Urine Bacteria MANY/HPF Urine Hemoglobin NEGATIVEmg/dL Urine Glucose 3+mg/dL Urine Total Protein 3+mg/dl White Blood Count 8.310^3/ul Red Blood Count 4.1810^6/ul Hemoglobin 12.1g/dl Hematocrit 39.7% Mean Corpuscular Volume 95.0fl Mean Corpuscular Hemoglobin 28.9pg Mean Corpuscular Hemoglobin Concent 30.5g/dl Red Cell Distribution Width 15.3% Platelet Count 10773^3/UL Mean Platelet Volume 10.2fl Neutrophils % 77.6% Lymphocytes % 15.6% Monocytes % 4.8% Eosinophils % 1.0% Basophils % 0.6% Nucleated Red Blood Cells % 0.0/100WBC Neutrophils # 6.510^3/ul Lymphocytes # 1.310^3/ul Monocytes # 0.410^3/ul Eosinophils # 0.110^3/ul Basophils # 0.110^3/ul Nucleated Red Blood Cells # 0.010^3/ul Prothrombin Time 13.2Sec Prothrombin Time Ratio 1.0 INR International Normalized Ratio 1.00 Activated Partial Thromboplast Time 32.0Sec Sodium Level 139mmol/L Potassium Level 3.6mmol/L Chloride Level 93mmol/L Carbon Dioxide Level 28mmol/L Anion Gap 22 Blood Urea Nitrogen 30mg/dl Creatinine 4.88mg/dl Glucose Level 263mg/dl Lactic Acid Level 2.7mmol/L Calcium Level 8.3mg/dl Total Bilirubin 0.2mg/dl Direct Bilirubin 0.00mg/dl Indirect Bilirubin 0.2mg/dl Aspartate Amino Transf (AST/SGOT) 18IU/L Alanine Aminotransferase (ALT/SGPT) 25IU/L Alkaline Phosphatase 71IU/L Creatine Kinase 33IU/L Creatine Kinase Index 2.6 Creatinine Kinase MB (Mass) 0.86ng/ml Troponin I 0.012ng/ml B-Type Natriuretic Peptide 2940PG/ML Total Protein 7.7g/dl Albumin 4.4g/dl Globulin 3.30g/dl Albumin/Globulin Ratio 1.33 Amylase Level 39U/L Lipase 76U/L Free Thyroxine Index 3.09ug/ml Thyroxine (T4) 8.5ug/dl Triiodothyronine (T3) Uptake 36.3% D-Dimer 1054.00ng/ml D-Dimer Comment Current Medications Medications (Trade) Dose Ordered Sig/Daniel Route PRN Reason Start Time Stop Time Status Last Admin Dose Admin Morphine Sulfate (morphine) 4 mg ONCE STAT IV 02/02/17 10:56 02/02/17 11:20 DC 02/02/17 11:33 Ondansetron HCl (Zofran Inj) 4 mg ONCE STAT IV 02/02/17 10:56 02/02/17 11:20 DC 02/02/17 11:33 Albuterol (Proventil 0.083% (Neb)) 5 mg ONCE STAT NEB 02/02/17 11:45 02/02/17 11:53 DC 02/02/17 12:12 Ipratropium [place] 0.5 mg 0.5 mg ONCE STAT NEB 02/02/17 11:45 02/02/17 11:53 DC 02/02/17 12:12 Ceftriaxone Sodium 50 ml @ 100 mls/hr ONCE ONCE IVPB 02/02/17 12:30 02/02/17 12:59 DC 02/02/17 12:49 Sodium Chloride (NS) 500 ml @ 500 mls/hr Q1H STAT IV 02/02/17 12:23 02/02/17 13:22 DC 02/02/17 12:49 Ondansetron HCl (Zofran Inj) 4 mg ER BRIDGE PRN IV NAUSEA AND/OR VOMITING 02/02/17 14:00 02/03/17 13:59 Acetaminophen (Tylenol Tab) 650 mg ER BRIDGE PRN PO MILD PAIN/FEVER 02/02/17 14:00 02/03/17 13:59 Procedures/MDM This patient presented to the emergency department with frequency urgency and dysuria and a known history of end-stage renal disease on hemodialysis. The patient does make urine but appeared clinically dehydrated. She was given gentle IV fluid hydration as the patient did have an elevated lactate was thought to be secondary to dehydration versus sepsis. The patient did not have 2 or more sirs criteria. The patient did have blood cultures and urine cultures obtained and was given IV ceftriaxone. 12 Lead EKG tracing ordered and reviewed by myself showed: Normal sinus rhythm of 76 bpm and no arrhythmia. AR interval normal. QRS duration normal. No ST segment elevation No ST segment depression. No changes consistent with acute ischemia. The patient was hypoxic upon arrival at 92%. She had a chest radiograph ordered reviewed by myself which showed no acute infiltrates pneumothorax or pleural effusion. The patient had no physical exam findings to suggest congestive heart failure. The patient was a low pretest probability according to the well's criteria therefore obtained a d-dimer. D-dimer was elevated and therefore the patient will undergo a V/Q scan given that the patient cannot undergo a CT scan from her renal failure. The patient had an arterial blood gas showed no respiratory alkalosis. She will be admitted in serious condition to the hospitalist due to her multiple medical comorbidities for IV antibiotics to treat the UTI. Departure Diagnosis: Primary Impression: Shortness of breath Additional Impression: Urinary tract infection Urinary tract infection type: acute cystitis Hematuria presence: without hematuria Qualified Code: N30.00 - Acute cystitis without hematuria Condition: Serious MER ZAZUETA Feb 02, 2017 13:18
[2017-02-02] MEDS ORDERED: ONDANSETRON 4 MG INJ IV PRN ×2 (14:00→16:00)
[2017-02-02] MEDS ORDERED: ACETAMINOPHEN 325 MG TAB PO PRN ×2 (14:00→16:00)
[2017-02-02 14:21] VITALS: TEMP 98.7
[2017-02-02 14:32] LABS: AADO2 Arterial 29.7 mmHg (7.0-24.0); Allen Test ACCEPTAB; Arterial Base Excess 3.7 mmol/L (-3.0-3); Arterial COHb 0.9 % (0.0-3.0); Arterial Fraction of Oxyhgb 89.3 % (93.0-99.0); Arterial HCO3 29.2 mmol/L (22.0-26.0); Arterial MetHb 0.3 % (0.0-1.5); Arterial Total Hemglobin 12.4 g/dl (12.0-18.0); MODE ROOM AIR
--- NOTE | 2017-02-02 15:42 | HP ---
Date/Time of Note Date/Time of Note DATE: 02/02/17 TIME: 15:37 Assessment/Plan VTE Prophylaxis VTE Prophylaxis Intervention: SCD's Assessment/Plan Chief Complaint/Hosp Course 1. UTI Rocephin IV Follow-up urine culture 2. End-stage renal disease on dialysis Saturday Consult nephrology for hemodialysis 3. Hypertension Resume home meds 4. Coronary disease Resume home meds 5. Gastritis Continue PPI Prophylaxis: SCDs Problems: HPI/ROS Admit Date/Time Admit Date/Time February 02, 2017 Hx of Present Illness Patient is a 61-year-old female with history of end-stage renal disease on dialysis Saturday, severe gastritis coronary disease, hypertension and dyslipidemia. Patient presents with malaise, tachycardia weakness and chills that began last night progressed into the morning. In the ED patient had a UA that did suggest UTI. Of note patient does produce urine. Patient has no other complaints at this time. ROS Constitutional: chills, fatigue Eyes: no complaints ENT: no complaints Respiratory: no complaints Cardiovascular: no complaints Gastrointestinal: no complaints Genitourinary: no complaints Musculoskeletal: no complaints Skin: no complaints Neurologic: no complaints Endocrine: no complaints Lymphatic: no complaints Psychological: nl mood/affect, no complaints Immunologic: no complaints PMH/Family/Social Past Medical History As per HPI Past Surgical History Past Surgical Hx: appendectomy, cholecystectomy Family History Significant Family History: no pertinent family hx Social History Alcohol Use: none Smoking Status: Never smoker Drug Use: none Exam/Review of Systems Vital Signs Vitals Vital Signs Date Time Temp Pulse Resp B/P Pulse Ox O2 Delivery O2 Flow Rate FiO2 02/02/17 14:21 98.7 90 18 116/56 98 Room Air 02/02/17 12:14 21 Exam Constitutional: alert, oriented Head: normocephalic Respiratory: clear to auscultation Cardiovascular: regular rate and rhythm Gastrointestinal: soft, No distended Musculoskeletal: nl extremities to inspection Labs Result Diagram: 02/02/17 1125 02/02/17 1125 SUSANA CHRISTINE Feb 02, 2017 15:42
[2017-02-02] MEDS ORDERED: HYDROCODONE/APAP (5/325) TAB PO PRN ×2 (16:00)
[2017-02-02] MEDS ORDERED: NACL 0.9% 3 ML SYG IV SCH (16:00)
[2017-02-02] MEDS ORDERED: MAGNESIUM HYDROXIDE 30ML CUP PO PRN (16:00)
[2017-02-02] MEDS ORDERED: DOCUSATE SODIUM 100 MG CAP PO PRN (16:00)
[2017-02-02] MEDS ORDERED: SELENIUM SULFIDE TP SCH (16:00)
[2017-02-02] MEDS ORDERED: morphine 2 MG INJ IV PRN (16:00)
--- NOTE | 2017-02-02 17:22 | RADRPT ---
PROCEDURE: Nuclear medicine VQ scan CLINICAL INDICATION: Hypoxia, shortness of breath. Rule out pulmonary embolism. TECHNIQUE: 43.5 mCi of technetium-99m aerosolized DTPA was utilized for the ventilation study. 3. 8 mCi of technetium 99m MAA was utilized for the perfusion study. Planar imaging which performed in 8 planes. Images were reviewed on the high resolution PACS workstation. COMPARISON: Chest radiograph from earlier the same date at 1128 hours. FINDINGS: There is normal and homogeneous uptake throughout the lungs on the ventilation and perfusion scan. No matched or mismatched defects are identified. There is no evidence for pulmonary embolism. IMPRESSION: 1. Low probability VQ scan. RPTAT:AACC Physician Nunu Date Time Electronically viewed and signed by Physician Nunu on 02/02/2017 17:21 /
[2017-02-02 17:44] VITALS: Ht 152.4 cm; Wt 78.6 kg
[2017-02-02] MEDS: SUCRALFATE 1 GM TAB PO SCH ×2 (18:41→21:04)
[2017-02-02] MEDS: PANTOPRAZOLE (EC) 40 MG TAB PO SCH (18:41)
[2017-02-02] MEDS: CALCIUM ACETATE 667 MG CAP PO SCH (18:41)
[2017-02-02] MEDS: FUROSEMIDE 40 MG TAB PO SCH (18:42)
[2017-02-02] MEDS: CEFTRIAXONE 1 GM/50 ML (PMX) 50 ML IVPB SCH (18:43)
[2017-02-02 20:00] VITALS: BP 138/65; RESP 20
[2017-02-02 20:33] VITALS: BP 154/68; RESP 18
[2017-02-02 20:35] VITALS: PULSE 83
[2017-02-02] MEDS: ATORVASTATIN 80 MG TAB PO SCH (21:04)
[2017-02-02] MEDS: L ACIDOPHIL/B LACTIS/B LONGUM CAPSULE PO SCH (21:04)
[2017-02-02] MEDS: GABAPENTIN 300 MG CAP PO SCH (21:04)
[2017-02-02] MEDS: BACLOFEN 10 MG TAB PO PRN (22:29)
[2017-02-03] VITALS (12 sets, daily range): BP systolic 94–136; BP diastolic 33–66; PULSE 71–95; RESP 18–19
[2017-02-03] MEDS: PANTOPRAZOLE (EC) 40 MG TAB PO SCH ×2 (05:26→17:02)
[2017-02-03] MEDS: FUROSEMIDE 40 MG TAB PO SCH ×2 (05:26→17:05)
[2017-02-03 06:36] LABS: BASOPHIL # 0.1 10^3/ul (0.0-0.1); BASOPHILS % 0.5 % (0.0-2.0); EOSINOPHILS # 0.1 10^3/ul (0.0-0.5); HEMATOCRIT 34.4 % (37.0-47.0); HEMOGLOBIN 10.8 g/dl (12.0-16.0); LYMPHOCYTES # 1.6 10^3/ul (0.8-2.9); LYMPHOCYTES % 13.6 % (15.0-51.0); MEAN CORPUSCULAR HEMOGLOBIN 30.3 pg (29.0-33.0); MEAN CORPUSCULAR HGB CONC 31.4 g/dl (32.0-37.0); MEAN CORPUSCULAR VOLUME 96.6 fl (82.0-101.0); MEAN PLATELET VOLUME 9.8 fl (7.4-10.4); MONOCYTE # 0.5 10^3/ul (0.3-0.9); MONOCYTES % 4.6 % (0.0-11.0); NEUTROPHIL # 9.3 10^3/ul (1.6-7.5); NEUTROPHILS % 79.9 % (39.0-77.0); PLATELET COUNT 206 10^3/UL (140-415); RED BLOOD COUNT 3.56 10^6/ul (4.20-5.40); RED CELL DISTRIBUTION WIDTH 15.1 % (11.5-14.5); WHITE BLOOD COUNT 11.7 10^3/ul (4.8-10.8)
[2017-02-03 07:46] LABS: CALCIUM 7.3 mg/dl (8.4-10.2); CREATININE 6.49 mg/dl (0.44-1.00); MAGNESIUM 1.9 mg/dl (1.7-2.5); PHOSPHORUS 8.9 mg/dl (2.5-4.9); POTASSIUM 4.2 mmol/L (3.5-5.1)
[2017-02-03] MEDS: CALCIUM ACETATE 667 MG CAP PO SCH ×3 (08:50→17:02)
[2017-02-03] MEDS: GABAPENTIN 300 MG CAP PO SCH ×2 (08:50→20:26)
[2017-02-03] MEDS: CALCITRIOL 0.25 MCG CAP PO SCH (08:50)
[2017-02-03] MEDS: L ACIDOPHIL/B LACTIS/B LONGUM CAPSULE PO SCH ×2 (08:50→20:25)
[2017-02-03] MEDS: SUCRALFATE 1 GM TAB PO SCH ×4 (08:50→20:25)
[2017-02-03] MEDS: VENLAFAXINE (XR) 75 MG CAP PO SCH (08:51)
[2017-02-03] MEDS: BISACODYL (EC) 5 MG TAB PO SCH (08:51)
[2017-02-03] MEDS: CLOPIDOGREL 75 MG TAB PO SCH (08:51)
[2017-02-03] MEDS: LOSARTAN 50 MG TAB PO SCH (11:13)
[2017-02-03] MEDS: AMLODIPINE 5 MG TAB PO SCH (11:14)
[2017-02-03] MEDS: CEFTRIAXONE 1 GM/50 ML (PMX) 50 ML IVPB SCH (15:30)
--- NOTE | 2017-02-03 17:10 | CONS ---
DATE OF ADMISSION: 02/03/2017 DATE OF CONSULTATION: HISTORY OF PRESENT ILLNESS: The patient is a 61-year-old female with a past medical history of end stage renal disease on Saturday, Saturday, and Saturday; severe gastritis; coronary artery disease; hyp ertension; dyslipidemia. The patient presents with malaise, tachycardia, weakness, chills, and also dizziness, and in the course of the workup noted to have a urinary tract infection. Patient tacos nicola her last hemodialysis on Saturday without complication, does say that her biggest concern is her d izziness and her dizziness is mildly affected by dialysis but sometimes it is not. She has had the dizziness for about a month. She has been on dialysis for about 2 years. She dialyses via a left u pper extremity fistula. She says she cannot remember the name of her payment collector but thinks it is locally. Denies fever, chills, nausea, vomiting, chest pain, shortness of breath. PAST MEDICAL HISTORY: Significant for the above. Also includes appendectomy, cholecystectomy. ALLERGIES: PATIENT HAS ALLERGIES TO TYLENOL. SOCIAL HISTORY: Does not smoke, drink, or use IV drugs. Lives with family. FAMILY HISTORY: Significant for kidney disease. REVIEW OF SYSTEMS: A 14-point review of systems is attempted and negative unless stated on exam. PHYSICAL EXAMINATION: VITAL SIGNS: Temperature 99.4, blood pressure 94/33. HEENT: Normocephalic, atraumatic. Pupils are equal, round, reactive to light. NECK: Supple. HEART: Regular rate and rhythm. LUNGS: Clear to auscultation. ABDOMEN: Soft, nontender, nondistended. Bowel sounds present. EXTREMITIES: No clubbing, cyanosis, edema. LABORATORY EVALUATION: White count 11.7, hemoglobin 11, hematocrit 34.4. UA is reviewed under micr oscopy. Chest x-ray is reviewed with radiologist. IMPRESSION: 1. End stage renal disease on Saturday, Saturday, and Saturday dialysis, so we will arrange for dialys is on a Saturday, Saturday, Saturday schedule, assess daily for dialysis needs. All medicines dosed ap propriately for renal function. 2. Urinary tract infection. Antibiotics. Follow up cultures. 3. Dizziness. May consider neurology evaluation and neuroimaging. 4. Fever, malaise, leukocytosis, probably related to urinary tract infection. 5. History of gastritis. Continue proton pump inhibitor. 6. Hypertension. Continue regular medications. 7. Right upper quadrant abdominal pain. Order ultrasound. Patient had had a cholecystectomy, may need a CT scan. Dictated By: YASMIN BREEN MD DF/ANASTASIIA Conf#: [id number] DID#: [id number] CC: TOYA SCRUGGS;*EndCC*
--- NOTE | 2017-02-03 18:35 | PN ---
Date/Time of Note Date/Time of Note DATE: 02/03/17 TIME: 18:34 Assessment/Plan VTE Prophylaxis VTE Prophylaxis Intervention: SCD's Lines/Catheters IV Catheter Type (from Nrs): Peripheral IV Assessment/Plan Chief Complaint/Hosp Course 1. Sepsis secondary to UTI Leukocytosis and fever noted Rocephin IV Follow-up urine culture 2. End-stage renal disease on dialysis Saturday Nephrology consultation appreciated 3. Hypertension Continue home meds 4. Coronary disease Continue home meds 5. Gastritis Continue PPI Prophylaxis: SCDs Problems: Subjective 24 Hr Interval Summary Neurologic: dizziness Exam/Review of Systems Vital Signs Vitals Vital Signs Date Time Temp Pulse Resp B/P Pulse Ox O2 Delivery O2 Flow Rate FiO2 02/03/17 16:27 99.7 81 18 119/44 94 02/02/17 15:30 Room Air 02/02/17 12:14 21 Intake and Output 02/02/17 02/02/17 02/03/17 15:00 23:00 07:00 Intake Total 250 ml Balance 250 ml Exam Constitutional: alert, oriented Respiratory: clear to auscultation Cardiovascular: regular rate and rhythm Gastrointestinal: soft, No distended Musculoskeletal: nl extremities to inspection Results Result Diagram: 02/03/17 0556 02/03/17 0556 Results 24 hrs Laboratory Tests Test 02/03/17 05:56 02/03/17 05:58 White Blood Count 11.7 #H Red Blood Count 3.56 L Hemoglobin 10.8 L Hematocrit 34.4 L Mean Corpuscular Volume 96.6 Mean Corpuscular Hemoglobin 30.3 Mean Corpuscular Hemoglobin Concent 31.4 L Red Cell Distribution Width 15.1 H Platelet Count 206 Mean Platelet Volume 9.8 Neutrophils % 79.9 H Lymphocytes % 13.6 L Monocytes % 4.6 Eosinophils % 1.0 Basophils % 0.5 Nucleated Red Blood Cells % 0.0 Neutrophils # 9.3 H Lymphocytes # 1.6 Monocytes # 0.5 Eosinophils # 0.1 Basophils # 0.1 Nucleated Red Blood Cells # 0.0 Sodium Level 138 Potassium Level 4.2 Chloride Level 97 Carbon Dioxide Level 27 Anion Gap 18 H Blood Urea Nitrogen 42 #H Creatinine 6.49 H Glucose Level 158 # Calcium Level 7.3 L Phosphorus Level 8.9 H Magnesium Level 1.9 Hemoglobin A1c 7.5 H Medications Medications Current Medications Ondansetron HCl (Zofran Inj) 4 mg Q6H PRN IV NAUSEA AND/OR VOMITING; Start 02/08 at 16:00 Acetaminophen (Tylenol Tab) 650 mg Q6H PRN PO PAIN LEVEL 1-3 OR FEVER Last administered on 02/03/17 14:45; Admin Dose 650 MG; Start 02/02/17 at 16:00 Acetaminophen/ Hydrocodone Bitart (Brightwood (5/325)) 1 tab Q6H PRN PO MODERATE PAIN LEVEL 4-6; Start 02/02/17 at 16:00 Morphine Sulfate (morphine) 2 mg Q4H PRN IV SEVERE PAIN LEVEL 7-10; Start 02/08 at 16:00 Docusate Sodium (Colace) 100 mg Q12H PRN PO CONSTIPATION; Start 02/02/17 at 16 :00 Magnesium Hydroxide 30 ml 30 ml DAILY PRN PO CONSTIPATION; Start 02/02/17 at 16:00 Ceftriaxone Sodium (Rocephin) 50 ml @ 100 mls/hr Q24H IVPB Last administered on 02/03/17 15:30; Admin Dose 100 MLS/HR; Start 02/02/17 at 16:00 Amlodipine Besylate (Norvasc) 5 mg DAILY PO ; Start 02/03/17 at 09:00 Atorvastatin Calcium (Lipitor) 80 mg QHS PO Last administered on 02/02/17 21: 04; Admin Dose 80 MG; Start 02/02/17 at 21:00 Baclofen (Lioresal) 10 mg BID PRN PO MUSCLE SPASMS Last administered on 22:29; Admin Dose 10 MG; Start 02/02/17 at 16:00 Bisacodyl (Dulcolax) 10 mg DAILY PO Last administered on 02/03/17 08:51; Admin Dose 10 MG; Start 02/03/17 at 09:00 Calcitriol (Rocaltrol) 0.25 mcg DAILY PO Last administered on 02/03/17 08:50 ; Admin Dose 0.25 MCG; Start 02/03/17 at 09:00 Carvedilol (Coreg) 12.5 mg BID PO Last administered on 02/03/17 08:53; Admin Dose 12.5 MG; Start 02/02/17 at 21:00 Clopidogrel Bisulfate (plaVIX) 75 mg DAILY PO Last administered on 02/03/17 08:51; Admin Dose 75 MG; Start 02/03/17 at 09:00 Gabapentin (Neurontin) 300 mg BID PO Last administered on 02/03/17 08:50; Admin Dose 300 MG; Start 02/02/17 at 21:00 Hydralazine HCl (Apresoline) 100 mg BID PO Last administered on 02/02/17 21: 04; Admin Dose 100 MG; Start 02/02/17 at 21:00 Acetaminophen/ Hydrocodone Bitart (Brightwood (5/325)) 1 tab Q6H PRN PO PAIN; Start 02/02/17 at 16:00 Losartan Potassium (Cozaar) 50 mg DAILY PO ; Start 02/03/17 at 09:00 Pantoprazole (Protonix Tab) 40 mg BID@06,18 PO Last administered on 02/03/17 17:02; Admin Dose 40 MG; Start 02/02/17 at 18:00 Venlafaxine HCl (Effexor Xr) 75 mg DAILY PO Last administered on 02/03/17 08: 51; Admin Dose 75 MG; Start 02/03/17 at 09:00 Lactobacillus Acidophilus (Florajen3 Capsule) 1 each BID PO Last administered on 02/03/17 08:50; Admin Dose 1 EACH; Start 02/02/17 at 21:00 SUSANA CHRISTINE Feb 03, 2017 18:35
[2017-02-03] MEDS: BACLOFEN 10 MG TAB PO PRN (20:25)
[2017-02-03] MEDS: ATORVASTATIN 80 MG TAB PO SCH (20:25)
[2017-02-04] VITALS (24 sets, daily range): BP systolic 110–163; BP diastolic 44–74; PULSE 82–208; RESP 16–19
[2017-02-04] MEDS: PANTOPRAZOLE (EC) 40 MG TAB PO SCH (05:00)
[2017-02-04] MEDS: FUROSEMIDE 40 MG TAB PO SCH ×2 (05:00→18:47)
[2017-02-04 07:32] LABS: BASOPHILS % 0.3 % (0.0-2.0); EOSINOPHILS # 0.1 10^3/ul (0.0-0.5); EOSINOPHILS % 0.8 % (0.0-7.0); HEMATOCRIT 31.9 % (37.0-47.0); HEMOGLOBIN 10.2 g/dl (12.0-16.0); LYMPHOCYTES # 1.3 10^3/ul (0.8-2.9); LYMPHOCYTES % 9.9 % (15.0-51.0); MEAN CORPUSCULAR HEMOGLOBIN 30.5 pg (29.0-33.0); MEAN CORPUSCULAR VOLUME 95.5 fl (82.0-101.0); MEAN PLATELET VOLUME 10.3 fl (7.4-10.4); MONOCYTE # 0.6 10^3/ul (0.3-0.9); MONOCYTES % 4.7 % (0.0-11.0); NEUTROPHILS % 83.8 % (39.0-77.0); PLATELET COUNT 167 10^3/UL (140-415); RED BLOOD COUNT 3.34 10^6/ul (4.20-5.40); RED CELL DISTRIBUTION WIDTH 15.2 % (11.5-14.5); WHITE BLOOD COUNT 13.1 10^3/ul (4.8-10.8)
[2017-02-04 07:56] LABS: CALCIUM 6.3 mg/dl (8.4-10.2); CREATININE 8.69 mg/dl (0.44-1.00); POTASSIUM 4.2 mmol/L (3.5-5.1)
[2017-02-04] MEDS: LOSARTAN 50 MG TAB PO SCH (08:05)
[2017-02-04] MEDS: CALCIUM ACETATE 667 MG CAP PO SCH ×3 (08:16→18:46)
[2017-02-04] MEDS: CLOPIDOGREL 75 MG TAB PO SCH (08:16)
[2017-02-04] MEDS: VENLAFAXINE (XR) 75 MG CAP PO SCH (08:16)
[2017-02-04] MEDS: BISACODYL (EC) 5 MG TAB PO SCH (08:16)
[2017-02-04] MEDS: CALCITRIOL 0.25 MCG CAP PO SCH (08:16)
[2017-02-04] MEDS: AMLODIPINE 5 MG TAB PO SCH (08:16)
[2017-02-04] MEDS: GABAPENTIN 300 MG CAP PO SCH ×2 (08:16→20:07)
[2017-02-04] MEDS: SUCRALFATE 1 GM TAB PO SCH ×4 (08:16→20:06)
[2017-02-04] MEDS: L ACIDOPHIL/B LACTIS/B LONGUM CAPSULE PO SCH (08:18)
--- NOTE | 2017-02-04 09:15 | PN ---
DATE: 02/04/2017 SUBJECTIVE: The patient is stable. No events overnight. No fevers, chills, nausea, vomiting, no s hortness of breath. OBJECTIVE: VITAL SIGNS: Blood pressure is 113/46, temperature 98.5, respiration 19. HEENT: Head is normocephalic. NECK: Supple. HEART: Regular rate. LUNGS: Show diminished breath sounds at base. ABDOMEN: Soft, nontender to palpation. No rebound or guarding. EXTREMITIES: Negative for clubbing, cyanosis, no edema. DERMATOLOGIC: No rashes. MUSCULOSKELETAL: No joint effusions. NEUROLOGIC: No change in exam. MEDICATIONS: The patient's medications have been reviewed. LABORATORY DATA: Has been reviewed. The patient has a white count of 13.1, hemoglobin 10.2, platel et count is 167. Sodium 133, BUN 59, creatinine 2.69. ASSESSMENT AND PLAN: 1. End-stage renal disease. The patient is on dialysis Saturday, Saturday, Saturday with access AV fi stula. Plan for dialysis today. 2. Hypernatremia. The patient will be dialyzed ____ a 140 sodium bath. 3. Anemia. Monitor hemoglobin and hematocrit levels. Will give Epogen as needed. 4. Mineral bone disorder. Monitor calcium and phosphorus levels. 5. Urinary tract infection. Continue current antibiotic regimen. 6. Gastritis. Continue proton pump inhibitor. 7. Hypertension. Continue current blood pressure regimen. 8. Coronary artery disease. Continue current treatment plan. Dictated By: LENA ROLLINS/ANASTASIIA Conf#: [id number] DID#: [id number] CC: TOYA SCRUGGS;*EndCC*
--- NOTE | 2017-02-04 09:22 | RADRPT ---
PROCEDURE: US Abdomen Complete. CLINICAL INDICATION: pain. RN CALLED PT NPO OVERNIGHT READY 6AM TECHNIQUE: Multiple real-time images were acquired of the patient's abdomen and retroperitoneum ut ilizing a high resolution transducer. COMPARISON: None FINDINGS: The liver measures 18.0 cm and demonstrates normal echogenicity. There is no intrahepatic biliary ductal dilatation. The extrahepatic common bile duct measures 6 mm. The main portal vein is patent w ith proper directional flow. The gallbladder is absent. The visualized pancreas is unremarkable. The spleen measures 16.2 cm. The right kidney measures 9.1 cm. The left kidney measures 9.3 cm. There are no renal calculi or hyd ronephrosis bilaterally. There is moderately increased renal parenchymal echogenicity bilaterally. There is thinning of the right renal cortex to approximately 8 mm. There is thinning of the left renal cortex to approximately 7 mm. There is a 1.8 cm simple left renal cyst. The visualized abdominal aorta and IVC are grossly unremarkable. IMPRESSION: Hepatosplenomegaly. The main portal vein is patent with proper directional flow. Status post cholecystectomy. Normal CBD. Atrophic and echogenic kidneys consistent with medical renal disease. No hydronephrosis. RPTAT: EE Physician Mony Date Time Electronically viewed and signed by Physician Mony on 02/04/2017 09:22 /
--- NOTE | 2017-02-04 15:48 | RADRPT ---
PROCEDURE: CT Brain without contrast. CLINICAL INDICATION: Altered mental status. Dizziness. Concern for CVA. TECHNIQUE: A CT of the brain was performed on multidetector high-resolution CT scanner utilizing a xial sections from the skull base through the vertex without contrast. The scan was reviewed in sof t tissue brain and high frequency resolution bone algorithm windows. Images were reviewed on a high -resolution PACS workstation. One or more the following does reduction techniques were utilized: Aut omated exposure control, adjustment of the mA/ or kV according to patient's size, or use of iterativ e reconstruction technique. The exam CTDI = 43.77 mGy and the DLP = 720.23 mGy-cm. DICOM images are available. COMPARISON: Brain CT 10/13/2015. FINDINGS: The ventricles and sulci are mildly prominent indicative of volume loss. There is no intracranial h emorrhage, mass effect or midline shift. No abnormal intra-axial or extra-axial fluid collections a re seen. The sousa/white matter differentiation is preserved. There are mild scattered foci of hypoattenuation in the white matter, which are nonspecific in etiol ogy but likely reflect chronic small vessel ischemic changes. There are mild intracranial vascular calcifications consistent with atherosclerosis. The visualized paranasal sinuses are essentially felix ar. There is thinning of bilateral lens indicative of prior lens replacement. IMPRESSION: 1. No acute intracranial hemorrhage, transcortical infarction or mass effect. Please note MRI is mo re sensitive for detection of acute ischemia and can be obtained as clinically warranted. 2. Mild intracranial atherosclerosis and chronic small vessel ischemic changes. 3. Mild generalized cerebral volume loss. RPTAT: HH .Loreto Laboy MD, MD Date Time Electronically viewed and signed by .Loreto Laboy MD, MD on 02/04/2017 15:48 .N/
[2017-02-04] MEDS ORDERED: MECLIZINE 25 MG TAB PO PRN (16:30)
--- NOTE | 2017-02-04 17:18 | PN ---
Date/Time of Note Date/Time of Note DATE: 02/04/17 TIME: 17:09 Assessment/Plan VTE Prophylaxis VTE Prophylaxis Intervention: LMWH, other Lines/Catheters IV Catheter Type (from Nrs): Saline Lock Assessment/Plan Chief Complaint/Hosp Course 61 yo female with ESRD on HD, DMII presenting with fever and malaise Fever: - Presumed UTI, continue ceftriaxone monitor cultures ESRD: - HD per renal Hand numnbess: - Head CT negative for acute stroke - Monitor clinically, neuro consult tomorrow if needed Dc to facility Problems: Subjective 24 Hr Interval Summary Free Text/Dictation Complaining of generalized nausea. Feels hungry, wants liquid diet as doesn't have dentures L hand subjective numbness. Head CT normal Exam/Review of Systems Vital Signs Vitals Vital Signs Date Time Temp Pulse Resp B/P Pulse Ox O2 Delivery O2 Flow Rate FiO2 02/04/17 16:20 83 02/04/17 16:00 2.0 02/04/17 13:59 95 Nasal Cannula 02/04/17 13:52 99.5 18 163/62 02/02/17 12:14 21 Intake and Output 02/03/17 02/03/17 02/04/17 15:00 23:00 07:00 Intake Total 450 ml 120 ml Balance 450 ml 120 ml Exam Constitutional: alert, oriented, well developed Psych: nl mood/affect, no complaints Head: atraumatic, normocephalic Eyes: EOMI, PERRL, nl conjunctiva, nl lids, nl sclera ENMT: nl external ears & nose, nl lips & teeth, nl nasal mucosa & septum Neck: non-tender, supple Respiratory: clear to auscultation, normal air movement Cardiovascular: nl pulses, regular rate and rhythm Gastrointestinal: nl liver, spleen, non-tender, soft Musculoskeletal: nl extremities to inspection, nl gait and stance Extremities: normal pulses Neurological: [employer] 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, nl mental status, nl speech, nl strength Skin: nl turgor, No rash or lesions Lymph: nl lymph nodes Results Result Diagram: 02/04/17 0656 02/04/17 0656 Results 24 hrs Laboratory Tests Test 02/04/17 06:56 White Blood Count 13.1 H Red Blood Count 3.34 L Hemoglobin 10.2 L Hematocrit 31.9 L Mean Corpuscular Volume 95.5 Mean Corpuscular Hemoglobin 30.5 Mean Corpuscular Hemoglobin Concent 32.0 Red Cell Distribution Width 15.2 H Platelet Count 167 Mean Platelet Volume 10.3 Neutrophils % 83.8 H Lymphocytes % 9.9 L Monocytes % 4.7 Eosinophils % 0.8 Basophils % 0.3 Nucleated Red Blood Cells % 0.0 Neutrophils # 11.0 H Lymphocytes # 1.3 Monocytes # 0.6 Eosinophils # 0.1 Basophils # 0.0 Nucleated Red Blood Cells # 0.0 Sodium Level 133 L Potassium Level 4.2 Chloride Level 95 L Carbon Dioxide Level 21 Anion Gap 21 H Blood Urea Nitrogen 59 H Creatinine 8.69 #H Glucose Level 247 H Calcium Level 6.3 L Medications Medications Current Medications Ondansetron HCl (Zofran Inj) 4 mg Q6H PRN IV NAUSEA AND/OR VOMITING Last administered on 02/04/17 14:13; Admin Dose 4 MG; Start 02/02/17 at 16:00 Acetaminophen (Tylenol Tab) 650 mg Q6H PRN PO PAIN LEVEL 1-3 OR FEVER Last administered on 02/03/17 14:45; Admin Dose 650 MG; Start 02/02/17 at 16:00 Morphine Sulfate 2 mg 2 mg Q4H PRN IV SEVERE PAIN LEVEL 7-10; Start 02/02/17 at 16:00 Ceftriaxone Sodium (Rocephin) 50 ml @ 100 mls/hr Q24H IVPB Last administered on 02/03/17 15:30; Admin Dose 100 MLS/HR; Start 02/02/17 at 16:00 Atorvastatin Calcium (Lipitor) 80 mg QHS PO Last administered on 02/03/17 20: 25; Admin Dose 80 MG; Start 02/02/17 at 21:00 Calcitriol (Rocaltrol) 0.25 mcg DAILY PO Last administered on 02/04/17 08:16 ; Admin Dose 0.25 MCG; Start 02/03/17 at 09:00 Carvedilol (Coreg) 12.5 mg BID PO Last administered on 02/03/17 20:26; Admin Dose 12.5 MG; Start 02/02/17 at 21:00 Clopidogrel Bisulfate (plaVIX) 75 mg DAILY PO Last administered on 02/04/17 08:16; Admin Dose 75 MG; Start 02/03/17 at 09:00 Gabapentin (Neurontin) 300 mg BID PO Last administered on 02/04/17 08:16; Admin Dose 300 MG; Start 02/02/17 at 21:00 Losartan Potassium (Cozaar) 50 mg DAILY PO ; Start 02/03/17 at 09:00 Venlafaxine HCl (Effexor Xr) 75 mg DAILY PO Last administered on 02/04/17 08: 16; Admin Dose 75 MG; Start 02/03/17 at 09:00 Meclizine HCl (Antivert) 25 mg TID PRN PO DIZZINESS; Start 02/04/17 at 16:30 GENET BAILEY MD Feb 04, 2017 17:18
[2017-02-04] MEDS: CEFTRIAXONE 1 GM/50 ML (PMX) 50 ML IVPB SCH (18:47)
[2017-02-04] MEDS ORDERED: DILTIAZEM 25 MG INJ IV ONE (20:00)
[2017-02-04] MEDS: ATORVASTATIN 80 MG TAB PO SCH (20:06)
[2017-02-04 20:33] LABS: BASOPHILS % 0.3 % (0.0-2.0); EOSINOPHILS # 0.1 10^3/ul (0.0-0.5); EOSINOPHILS % 0.7 % (0.0-7.0); HEMATOCRIT 32.3 % (37.0-47.0); HEMOGLOBIN 10.4 g/dl (12.0-16.0); LYMPHOCYTES # 0.9 10^3/ul (0.8-2.9); LYMPHOCYTES % 8.7 % (15.0-51.0); MEAN CORPUSCULAR HEMOGLOBIN 30.4 pg (29.0-33.0); MEAN CORPUSCULAR HGB CONC 32.2 g/dl (32.0-37.0); MEAN CORPUSCULAR VOLUME 94.4 fl (82.0-101.0); MEAN PLATELET VOLUME 10.2 fl (7.4-10.4); MONOCYTE # 0.5 10^3/ul (0.3-0.9); MONOCYTES % 4.6 % (0.0-11.0); NEUTROPHIL # 9.3 10^3/ul (1.6-7.5); NEUTROPHILS % 85.3 % (39.0-77.0); PLATELET COUNT 173 10^3/UL (140-415); RED BLOOD COUNT 3.42 10^6/ul (4.20-5.40); WHITE BLOOD COUNT 10.9 10^3/ul (4.8-10.8)
[2017-02-04 21:11] LABS: CALCIUM 8.7 mg/dl (8.4-10.2); CREATININE 5.07 mg/dl (0.44-1.00); MAGNESIUM 1.8 mg/dl (1.7-2.5); POTASSIUM 3.5 mmol/L (3.5-5.1)
[2017-02-04 22:25] LABS: THYROID STIMULATING HORMONE 0.582 MIU/L (0.465-4.680)
[2017-02-05] VITALS (12 sets, daily range): BP systolic 96–123; BP diastolic 40–79; PULSE 66–87; RESP 16–19
[2017-02-05] MEDS: FUROSEMIDE 40 MG TAB PO SCH ×2 (05:07→17:12)
[2017-02-05 08:09] LABS: BASOPHILS % 0.4 % (0.0-2.0); EOSINOPHILS # 0.1 10^3/ul (0.0-0.5); EOSINOPHILS % 1.4 % (0.0-7.0); HEMATOCRIT 30.1 % (37.0-47.0); HEMOGLOBIN 9.4 g/dl (12.0-16.0); LYMPHOCYTES # 1.5 10^3/ul (0.8-2.9); LYMPHOCYTES % 16.9 % (15.0-51.0); MEAN CORPUSCULAR HGB CONC 31.2 g/dl (32.0-37.0); MEAN CORPUSCULAR VOLUME 96.2 fl (82.0-101.0); MEAN PLATELET VOLUME 10.6 fl (7.4-10.4); MONOCYTE # 0.6 10^3/ul (0.3-0.9); MONOCYTES % 6.3 % (0.0-11.0); NEUTROPHIL # 6.7 10^3/ul (1.6-7.5); NEUTROPHILS % 74.6 % (39.0-77.0); PLATELET COUNT 174 10^3/UL (140-415); RED BLOOD COUNT 3.13 10^6/ul (4.20-5.40); RED CELL DISTRIBUTION WIDTH 14.9 % (11.5-14.5)
[2017-02-05 08:32] LABS: CALCIUM 8.1 mg/dl (8.4-10.2); CREATININE 6.57 mg/dl (0.44-1.00); MAGNESIUM 1.9 mg/dl (1.7-2.5); PHOSPHORUS 7.2 mg/dl (2.5-4.9)
[2017-02-05] MEDS: CALCIUM ACETATE 667 MG CAP PO SCH ×3 (08:35→17:12)
[2017-02-05] MEDS: CALCITRIOL 0.25 MCG CAP PO SCH (08:36)
[2017-02-05] MEDS: GABAPENTIN 300 MG CAP PO SCH (08:36)
[2017-02-05] MEDS: SUCRALFATE 1 GM TAB PO SCH ×4 (08:36→20:24)
[2017-02-05] MEDS: VENLAFAXINE (XR) 75 MG CAP PO SCH (08:36)
[2017-02-05] MEDS: LOSARTAN 50 MG TAB PO SCH (08:36)
[2017-02-05] MEDS: CLOPIDOGREL 75 MG TAB PO SCH (08:36)
--- NOTE | 2017-02-05 08:54 | PN ---
DATE: 02/05/2017 SUBJECTIVE: The patient had hemodialysis yesterday, tolerated well. No other events noted. OBJECTIVE: VITAL SIGNS: Blood pressure 107/40, respirations 16, pulse 80, temperature 98.0. HEENT: Head is normocephalic. NECK: Supple. HEART: Regular rate. LUNGS: Show diminished breath sounds at the base. ABDOMEN: Soft, nontender to palpation without rebound or guarding. EXTREMITIES: Negative for clubbing, cyanosis, no edema. DERMATOLOGIC: No rashes. MUSCULOSKELETAL: No joint effusions. NEUROLOGIC: No change in exam. MEDICATIONS: Have been reviewed. LABORATORY DATA: Has been reviewed. No new labs this morning. ASSESSMENT AND PLAN: 1. End-stage renal disease. Plan for hemodialysis tomorrow. 2. Hypernatremia, improved. Continue to monitor. 3. Anemia. Continue to monitor hemoglobin and hematocrit levels. We will give Epogen as needed. 4. Mineral bone disorder. Monitor calcium and phosphorus levels. 5. Urinary tract infection. Continue current antibiotic regimen. 6. Gastritis. Continue proton pump inhibitor. 7. Hypertension. Continue current blood pressure regimen. 8. Coronary artery disease. Continue current treatment plan. Dictated By: LENA ROLLINS/ANASTASIIA Conf#: [id number] DID#: [id number]
[2017-02-05] MEDS: CEFTRIAXONE 1 GM/50 ML (PMX) 50 ML IVPB SCH (16:25)
--- NOTE | 2017-02-05 18:10 | PN ---
Date/Time of Note Date/Time of Note DATE: 02/05/17 TIME: 18:09 Assessment/Plan VTE Prophylaxis VTE Prophylaxis Intervention: other Lines/Catheters IV Catheter Type (from [facility]): Saline Lock Assessment/Plan Chief Complaint/Hosp Course 61 yo female with ESRD on HD, DMII presenting with fever and malaise Fever: - Presumed UTI, complete ceftriaxone course Dizziness: - No pathology seen on head CT - Meclizine PRN ESRD: - HD per renal Hand numnbess: - Head CT negative for acute stroke - Monitor clinically, neuro consult if needed Dc to facility Problems: Subjective 24 Hr Interval Summary Free Text/Dictation No change to clinical status Dizziness seems improved Exam/Review of Systems Vital Signs Vitals Vital Signs Date Time Temp Pulse Resp B/P Pulse Ox O2 Delivery O2 Flow Rate FiO2 02/05/17 16:00 71 02/05/17 15:51 97.9 18 110/79 96 02/05/17 12:00 Nasal Cannula 2.0 02/02/17 12:14 21 Intake and Output 02/04/17 02/04/17 02/05/17 15:00 23:00 07:00 Intake Total 700 ml 400 ml Output Total 3330 ml Balance -2630 ml 400 ml Results Result Diagram: 02/05/17 0729 02/05/17 0729 Results 24 hrs Laboratory Tests Test 02/04/17 20:14 02/05/17 07:29 White Blood Count 10.9 H 9.0 Red Blood Count 3.42 L 3.13 L Hemoglobin 10.4 L 9.4 L Hematocrit 32.3 L 30.1 L Mean Corpuscular Volume 94.4 96.2 Mean Corpuscular Hemoglobin 30.4 30.0 Mean Corpuscular Hemoglobin Concent 32.2 31.2 L Red Cell Distribution Width 15.0 H 14.9 H Platelet Count 173 174 Mean Platelet Volume 10.2 10.6 H Neutrophils % 85.3 H 74.6 Lymphocytes % 8.7 L 16.9 Monocytes % 4.6 6.3 Eosinophils % 0.7 1.4 Basophils % 0.3 0.4 Nucleated Red Blood Cells % 0.0 0.0 Neutrophils # 9.3 H 6.7 Lymphocytes # 0.9 1.5 Monocytes # 0.5 0.6 Eosinophils # 0.1 0.1 Basophils # 0.0 0.0 Nucleated Red Blood Cells # 0.0 0.0 Sodium Level 137 139 Potassium Level 3.5 4.0 Chloride Level 95 L 97 Carbon Dioxide Level 29 31 Anion Gap 17 H 15 Blood Urea Nitrogen 31 #H 42 #H Creatinine 5.07 #H 6.57 H Glucose Level 250 H 129 # Calcium Level 8.7 8.1 L Magnesium Level 1.8 1.9 Thyroid Stimulating Hormone (TSH) 0.582 Phosphorus Level 7.2 H Medications Medications Current Medications Ondansetron HCl (Zofran Inj) 4 mg Q6H PRN IV NAUSEA AND/OR VOMITING Last administered on 02/04/17 14:13; Admin Dose 4 MG; Start 02/02/17 at 16:00 Acetaminophen 650 mg 650 mg Q6H PRN PO PAIN LEVEL 1-3 OR FEVER Last administered on 02/03/17 14:45; Admin Dose 650 MG; Start 02/02/17 at 16:00 Ceftriaxone Sodium (Rocephin) 50 ml @ 100 mls/hr Q24H IVPB Last administered on 02/05/17 16:25; Admin Dose 100 MLS/HR; Start 02/02/17 at 16:00 Atorvastatin Calcium (Lipitor) 80 mg QHS PO Last administered on 02/04/17 20: 06; Admin Dose 80 MG; Start 02/02/17 at 21:00 Calcitriol (Rocaltrol) 0.25 mcg DAILY PO Last administered on 02/05/17 08:36 ; Admin Dose 0.25 MCG; Start 02/03/17 at 09:00 Clopidogrel Bisulfate (plaVIX) 75 mg DAILY PO Last administered on 02/05/17 08:36; Admin Dose 75 MG; Start 02/03/17 at 09:00 Venlafaxine HCl (Effexor Xr) 75 mg DAILY PO Last administered on 02/05/17 08: 36; Admin Dose 75 MG; Start 02/03/17 at 09:00 Meclizine HCl (Antivert) 25 mg TID PRN PO DIZZINESS Last administered on 23:05; Admin Dose 25 MG; Start 02/04/17 at 16:30 GENET BAILEY MD Feb 05, 2017 18:10
[2017-02-05] MEDS: ATORVASTATIN 80 MG TAB PO SCH (20:24)
--- NOTE | 2017-02-05 21:48 | RADRPT ---
Vent Rate: 115 bpm RR Interval: 0 msec MN Interval: 0 msec QRS Duration: 92 msec QT Interval: 336 msec QTC Interval: 464 msec P-R-T [place]: 0 - 59 - 33 degrees Atrial fibrillation with rapid ventricular response Abnormal ECG Electronically Signed By: Hollis Lopes [id number]
[2017-02-06] VITALS (21 sets, daily range): BP systolic 92–146; BP diastolic 43–72; PULSE 65–100; RESP 18–22
[2017-02-06] MEDS: FUROSEMIDE 40 MG TAB PO SCH ×2 (05:26→17:26)
[2017-02-06] MEDS ORDERED: morphine 2 MG INJ IV ONE (06:00)
[2017-02-06] MEDS: NITROGLYCERIN (SL) 0.4 MG TAB SL PRN ×2 (06:06→11:49)
[2017-02-06] MEDS ORDERED: ALBUTEROL/IPRATROPIUM (NEB) 3 ML AMP HHN SCH (06:30)
--- NOTE | 2017-02-06 06:30 | RADRPT ---
PROCEDURE: XR Chest. CLINICAL INDICATION: Chest pain. TECHNIQUE: AP Portable chest. COMPARISON: CHEST 02/02/2017; CHEST 10/07/2016; FINDINGS: The cardiomediastinal silhouette is enlarged. The aortic arch is calcified. The lung volumes are low . Bibasilar, lingular opacities are visualized, greater on the left. Small bilateral pleural effusio ns and or thickening are also noted. No pneumothorax is seen. The osseous structures are intact. IMPRESSION: Bibasilar infiltrate or atelectasis. Small bilateral pleural effusions. Cardiomegaly. Aortic atherosclerosis. Physician Antonella Date Time Electronically viewed and signed by Elia Hoffman Physician on 02/06/2017 06:29 /
[2017-02-06 06:31] LABS: ABNORMAL IP MESSAGE 1; BASOPHILS % 0.3 % (0.0-2.0); EOSINOPHILS % 0.3 % (0.0-7.0); HEMATOCRIT 31.2 % (37.0-47.0); HEMOGLOBIN 9.8 g/dl (12.0-16.0); LYMPHOCYTES # 0.6 10^3/ul (0.8-2.9); LYMPHOCYTES % 3.9 % (15.0-51.0); MEAN CORPUSCULAR HEMOGLOBIN 30.2 pg (29.0-33.0); MEAN CORPUSCULAR HGB CONC 31.4 g/dl (32.0-37.0); MEAN PLATELET VOLUME 10.8 fl (7.4-10.4); MONOCYTE # 0.7 10^3/ul (0.3-0.9); MONOCYTES % 4.8 % (0.0-11.0); NEUTROPHIL # 13.1 10^3/ul (1.6-7.5); NEUTROPHILS % 90.3 % (39.0-77.0); PLATELET COUNT 196 10^3/UL (140-415); RED BLOOD COUNT 3.25 10^6/ul (4.20-5.40); RED CELL DISTRIBUTION WIDTH 14.6 % (11.5-14.5); WHITE BLOOD COUNT 14.5 10^3/ul (4.8-10.8)
[2017-02-06 06:32] LABS: POSITIVE DIFF @See below
[2017-02-06] MEDS: LEVALBUTEROL (NEB) 0.63 MG/3 ML AMP HHN PRN ×2 (06:33→20:51)
--- NOTE | 2017-02-06 06:34 | EN ---
Date/Time of Note Date/Time of Note DATE: 02/06/17 TIME: 06:23 Event Note Medicine Medicine Event Note Event note Was called to the room to assess the patient for chest pain. Patient reports chest pain on inspiration. She appeared diaphoretic. BP was 180 systolic. Was given morphine 2mg IV x 1. BP improved however her pain persisted. She was given one sublingual nitro which improved her symptoms more so. EKG: showed sinus tachy with no overt ST or t wave abnormalites. Vitals: initial T: 102.5 bp 180/90 HR 105 RR: 18 Spo2: 95% on 4L bp 154/82 HR 100 RR: 18 Const: diaphoretic, in mild respiratory distress HEENT: nc/at, EOMI CVS: sinus tachycardia, no overt murmurs appreciated lungs: Poor inspiratory effort, rales at the lower left lung base extremities: no edema, no deformities neuro: alert and oriented x 3, cn 2-12 intact EKG: as above Telemetery: Apparently nurse stated patient was in afib for a short period and converted back to sinus upon my arrival. Currently sinus tachy. chest xray: Bibasilar infiltrate or atelectasis. Small bilateral pleural effusions. A/p: #1 Sepsis: stat blood cultures, urine culture, sputum culture. xray questionable for infiltrate will start on vanc pharmacy to dose and cefepime 1 gm x 1 then 500mg q24hrs, renal dosing. for possible hospital acquired pna. #2 chest pain: acs vs underlying respiratory infection: STAT ekg, troponin, cbc , bmp, magnesium. Repeat troponin in 6 hours. Stat chest xray. Morning dose of lasix was given by RN. Will give her a breathing treatment. #3 Afib: stat bmp, magnesium, echo form 05/11 showed ef of 65%. Will defer to cardio regarding further management. Greater than 30 minutes of critical care time was spent on the care and management of this patient. FINESSE MAHER Feb 06, 2017 06:33
[2017-02-06] MEDS ORDERED: NACL 3% FOR INHALATION 15 ML NEBU NEB ONE (07:00)
[2017-02-06 07:02] LABS: CALCIUM 7.6 mg/dl (8.4-10.2); CREATININE 8.31 mg/dl (0.44-1.00)
[2017-02-06] MEDS ORDERED: VANCOMYCIN IV PER PHARMACY XX SCH (07:30)
[2017-02-06] MEDS: CALCIUM ACETATE 667 MG CAP PO SCH ×3 (08:21→17:24)
[2017-02-06] MEDS: SUCRALFATE 1 GM TAB PO SCH ×4 (08:21→20:28)
[2017-02-06] MEDS: CALCITRIOL 0.25 MCG CAP PO SCH (08:22)
[2017-02-06] MEDS: CLOPIDOGREL 75 MG TAB PO SCH (08:22)
[2017-02-06] MEDS: VENLAFAXINE (XR) 75 MG CAP PO SCH (08:22)
[2017-02-06] MEDS ORDERED: VANCOMYCIN 1.5 GM in SOD CHLORIDE 0.9% 250 ML IVPB SCH (09:00)
[2017-02-06] MEDS ORDERED: CEFEPIME 1GM/50 ML (PMX) 50 ML IVPB ONE (09:00)
--- NOTE | 2017-02-06 10:37 | PN ---
DATE: 02/06/2017 SUBJECTIVE: The patient is scheduled for hemodialysis today. The patient overnight noted to be feb rile will be started on antibiotic therapy. No other events noted. OBJECTIVE: VITAL SIGNS: Blood pressure is 136/61, pulse 94, respirations 24, temperature 101.4. HEENT: Head is normocephalic. NECK: Supple. HEART: Regular rate. LUNGS: Show diminished breath sounds at base. ABDOMEN: Soft, nontender to palpation without rebound or guarding. EXTREMITIES: Negative for clubbing, cyanosis, no edema. DERMATOLOGIC: No rashes. MUSCULOSKELETAL: No joint effusions. NEUROLOGIC: No change in exam. MEDICATIONS: The patient's medications have been reviewed. IMAGING: Chest x-ray which shows bibasilar infiltrates. LABORATORY DATA: Sodium 136, potassium 5.0, BUN 60, creatinine 8.31. White count 14.5, hemoglobin 9.8, hematocrit 31.2, platelet count is 196. ASSESSMENT AND PLAN: 1. End-stage renal disease. The patient is scheduled for dialysis today. We will dialyze for 3 ho urs 3K bath, calcium 2.5. 2. Hypernatremia, improved. Continue to monitor. 3. Anemia. Continue to monitor hemoglobin and hematocrit levels. Will give Epogen as needed. 4. Mineral bone disorder. Monitor calcium and phosphorous levels. 5. Urinary tract infection. Continue antibiotic regimen. 6. Gastritis. Continue PPI. 7. Hypertension. Continue current blood pressure regimen. 8. Coronary artery disease. Continue current treatment plan. Dictated By: LENA ROLLINS/ANASTASIIA Conf#: [id number] DID#: [id number]
--- NOTE | 2017-02-06 14:56 | PN ---
Date/Time of Note Date/Time of Note DATE: 02/06/17 TIME: 14:54 Assessment/Plan VTE Prophylaxis VTE Prophylaxis Intervention: other Lines/Catheters IV Catheter Type (from Nrs): Peripheral IV Urinary Cath still in place: No Assessment/Plan Chief Complaint/Hosp Course 61 yo female with ESRD on HD, DMII presenting with fever and malaise Fever: - Suspect this is a pneumonia given XR and hypoxia - Continue broad spectrum abx for now and follow up cultures Needs more HD, effusions and hypoxia at least partially related to fluid overload, planned for today ESRD: - HD per renal Dc to facility Problems: Subjective 24 Hr Interval Summary Free Text/Dictation Spked high fever over night, started on vanco/cef Complains of chest discomfort, worse with deep inspiration HD today Exam/Review of Systems Vital Signs Vitals Vital Signs Date Time Temp Pulse Resp B/P Pulse Ox O2 Delivery O2 Flow Rate FiO2 02/06/17 13:30 84 02/06/17 12:30 17 02/06/17 11:57 4.0 02/06/17 11:40 100.2 122/47 95 02/06/17 08:21 Nasal Cannula 02/02/17 12:14 21 Intake and Output 02/05/17 02/05/17 02/06/17 14:59 22:59 06:59 Intake Total 850 ml 400 ml Balance 850 ml 400 ml Exam Appears alert, oriented, nontoxic Slightly hypoxic Some crackles at b/l bases, breahting is nonlabored No pain to palpation of chest No edema Constitutional: alert, oriented, well developed Psych: nl mood/affect, no complaints Head: atraumatic, normocephalic Eyes: EOMI, PERRL, nl conjunctiva, nl lids, nl sclera ENMT: nl external ears & nose, nl lips & teeth, nl nasal mucosa & septum Neck: non-tender, supple Respiratory: clear to auscultation, normal air movement Cardiovascular: nl pulses, regular rate and rhythm Gastrointestinal: nl liver, spleen, non-tender, soft Musculoskeletal: nl extremities to inspection, nl gait and stance Extremities: normal pulses Neurological: STEAM FINISHER II-XII intact, nl mental status, nl speech, nl strength Skin: nl turgor, No rash or lesions Lymph: nl lymph nodes Results Result Diagram: 02/06/1716 02/06/17 0616 Results 24 hrs Laboratory Tests Test 02/06/17 06:14 02/06/17 06:16 02/06/17 07:54 02/06/17 11:46 Troponin I 0.049 0.048 White Blood Count 14.5 #H Red Blood Count 3.25 L Hemoglobin 9.8 L Hematocrit 31.2 L Mean Corpuscular Volume 96.0 Mean Corpuscular Hemoglobin 30.2 Mean Corpuscular Hemoglobin Concent 31.4 L Red Cell Distribution Width 14.6 H Platelet Count 196 Mean Platelet Volume 10.8 H Neutrophils % 90.3 H Lymphocytes % 3.9 L Monocytes % 4.8 Eosinophils % 0.3 Basophils % 0.3 Nucleated Red Blood Cells % 0.0 Neutrophils # 13.1 H Lymphocytes # 0.6 L Monocytes # 0.7 Eosinophils # 0.0 Basophils # 0.0 Nucleated Red Blood Cells # 0.0 Sodium Level 136 Potassium Level 5.0 Chloride Level 97 Carbon Dioxide Level 26 Anion Gap 18 H Blood Urea Nitrogen 60 H Creatinine 8.31 H Glucose Level 281 #H Calcium Level 7.6 L Magnesium Level 1.9 Medications Medications Current Medications Ondansetron HCl (Zofran Inj) 4 mg Q6H PRN IV NAUSEA AND/OR VOMITING Last administered on 02/04/17 14:13; Admin Dose 4 MG; Start 02/02/17 at 16:00 Acetaminophen (Tylenol Tab) 650 mg Q6H PRN PO PAIN LEVEL 1-3 OR FEVER Last administered on 02/03/17 14:45; Admin Dose 650 MG; Start 02/02/17 at 16:00 Atorvastatin Calcium (Lipitor) 80 mg QHS PO Last administered on 02/05/17 20: 24; Admin Dose 80 MG; Start 02/02/17 at 21:00 Calcitriol (Rocaltrol) 0.25 mcg DAILY PO Last administered on 02/06/17 08:22 ; Admin Dose 0.25 MCG; Start 02/03/17 at 09:00 Clopidogrel Bisulfate (plaVIX) 75 mg DAILY PO Last administered on 02/06/17 08:22; Admin Dose 75 MG; Start 02/03/17 at 09:00 Venlafaxine HCl (Effexor Xr) 75 mg DAILY PO Last administered on 02/06/17 08: 22; Admin Dose 75 MG; Start 02/03/17 at 09:00 Meclizine HCl (Antivert) 25 mg TID PRN PO DIZZINESS Last administered on 23:05; Admin Dose 25 MG; Start 02/04/17 at 16:30 Nitroglycerin 1 tab 1 tab Q5M PRN SL ANGINA Last administered on 02/06/17 11: 49; Admin Dose 1 TAB; Start 02/06/17 at 06:00 Cefepime HCl (Maxipime 1gm/50 ml (Pmx)) 50 ml @ 100 mls/hr QAM IVPB ; Start at 09:00 Epoetin Miller (Epogen (Esrd)) 6,000 units MoWeFr@17 SC ; Start 02/06/17 at 17:00 GENET BAILEY MD Feb 06, 2017 14:56
[2017-02-06] MEDS: EPOETIN 3000 UNITS/1 ML INJ (ESRD) SC SCH (17:28)
[2017-02-06] MEDS ORDERED: OXYCODONE/ACETAMINOPHEN (5/325) TAB PO PRN ×2 (17:30→17:35)
[2017-02-06] MEDS: ATORVASTATIN 80 MG TAB PO SCH (20:28)
[2017-02-07] VITALS (12 sets, daily range): BP systolic 106–137; BP diastolic 50–64; PULSE 79–86; RESP 18–20
--- NOTE | 2017-02-07 00:07 | RADRPT ---
PROCEDURE: CT Chest without contrast. CLINICAL INDICATION: Pain. Hypoxia. TECHNIQUE: CT scan of the chest without contrast was performed on a multidetector high-resolution C T scanner. Coronal and sagittal reformatted images were obtained from the axial source images. The total exam CTDI equals 15.98 mGy and the total exam DLP equals 527.91 mGy-cm. DICOM images are avail able. One or more of the following dose reduction techniques were used: - Automated exposure control. - Adjustment of the mA and/or kV according to patient size. - Use of iterative reconstruction technique. COMPARISON: Plain film dated 02/06/2017. VQ scan dated 02/02/2017. FINDINGS: Lungs, pleura, airways, and thoracic inlet: There are small bilateral pleural effusions, and bibasi lar parenchymal consolidation, which appears to be related to compressive atelectasis. There is no p neumothorax. There are no concerning pulmonary nodules or masses. The tracheobronchial tree is paten t and normal in course and caliber. Cardiovascular system, mediastinum, and lymphatics: There is four-chamber cardiac enlargement witho ut pericardial thickening or effusion. There are multivessel coronary artery calcifications. There a re atherosclerotic changes of the aorta, which is nonaneurysmal. There is no axillary, hilar, or med iastinal adenopathy. Visualized upper abdomen: There is a 2.8 cm cyst at the anterior margin of the spleen. Musculoskeletal system and soft tissues: There is mild multilevel degenerative enthesopathy. There are no concerning osseous lesions. The soft tissues are grossly unremarkable. IMPRESSION: 1. Cardiomegaly. 2. Small bilateral pleural effusions with bibasilar parenchymal consolidation, which appears to be related to compressive atelectasis. Underlying pneumonia is not entirely excluded. 3. Multivessel coronary artery calcifications and atherosclerotic changes of the aorta. 4. Cyst at the anterior margin of the spleen measuring 2.8 cm. RPTAT: HLBP .Joey Reyes MD, MD Date Time Electronically viewed and signed by .Joey Reyes MD, MD on 02/07/2017 00:06 .P/
[2017-02-07] MEDS: FUROSEMIDE 40 MG TAB PO SCH ×2 (05:50→17:14)
[2017-02-07 08:38] LABS: BASOPHIL # 0.1 10^3/ul (0.0-0.1); BASOPHILS % 0.5 % (0.0-2.0); EOSINOPHILS # 0.1 10^3/ul (0.0-0.5); EOSINOPHILS % 1.4 % (0.0-7.0); HEMATOCRIT 28.6 % (37.0-47.0); LYMPHOCYTES # 1.2 10^3/ul (0.8-2.9); LYMPHOCYTES % 12.8 % (15.0-51.0); MEAN CORPUSCULAR HGB CONC 31.5 g/dl (32.0-37.0); MEAN CORPUSCULAR VOLUME 95.3 fl (82.0-101.0); MEAN PLATELET VOLUME 10.5 fl (7.4-10.4); MONOCYTE # 0.7 10^3/ul (0.3-0.9); MONOCYTES % 7.9 % (0.0-11.0); NEUTROPHIL # 7.2 10^3/ul (1.6-7.5); NEUTROPHILS % 77.1 % (39.0-77.0); PLATELET COUNT 201 10^3/UL (140-415); RED CELL DISTRIBUTION WIDTH 14.6 % (11.5-14.5); WHITE BLOOD COUNT 9.3 10^3/ul (4.8-10.8)
[2017-02-07] MEDS: SUCRALFATE 1 GM TAB PO SCH ×4 (08:48→20:29)
[2017-02-07] MEDS: CALCIUM ACETATE 667 MG CAP PO SCH ×3 (08:48→17:14)
[2017-02-07] MEDS: CALCITRIOL 0.25 MCG CAP PO SCH (08:49)
[2017-02-07] MEDS: CLOPIDOGREL 75 MG TAB PO SCH (08:49)
[2017-02-07] MEDS: VENLAFAXINE (XR) 75 MG CAP PO SCH (08:49)
[2017-02-07] MEDS: CEFEPIME 1GM/50 ML (PMX) 50 ML IVPB SCH (08:50)
[2017-02-07] MEDS ORDERED: CEFEPIME 1 GM/50 ML IVPB SCH (09:00)
[2017-02-07 09:05] LABS: ALBUMIN 3.4 g/dl (3.3-4.9); ALBUMIN/GLOBULIN RATIO 0.94; CALCIUM 7.4 mg/dl (8.4-10.2); CREATININE 6.96 mg/dl (0.44-1.00); POTASSIUM 3.6 mmol/L (3.5-5.1)
--- NOTE | 2017-02-07 09:50 | PN ---
DATE: 02/07/2017 SUBJECTIVE: The patient is stable. No events overnight. No fevers, chills, nausea, vomiting. OBJECTIVE: VITAL SIGNS: Blood pressure is 116/55, respiration 19, pulse 79, temperature 98.3. HEENT: Head is normocephalic. NECK: Supple. HEART: Regular rate. LUNGS: Show diminished breath sounds at the base. ABDOMEN: Soft, nontender to palpation without rebound or guarding. EXTREMITIES: Negative for clubbing, cyanosis, no edema. DERMATOLOGIC: No rashes. MUSCULOSKELETAL: No joint effusions. NEUROLOGIC: No change in exam. MEDICATIONS: The patient's medications have been reviewed. LABORATORY DATA: Have been reviewed, currently pending. ASSESSMENT AND PLAN: 1. End-stage renal disease. The patient had hemodialysis yesterday. Plan for dialysis tomorrow. 2. Hypernatremia, improved. Continue to monitor. 3. Anemia. Monitor hemoglobin and hematocrit levels. Will give Epogen as needed. 4. Mineral bone disorder, monitor calcium and phosphorus levels. 5. Urinary tract infection. Continue current antibiotic regimen. 6. Gastritis. Continue proton pump inhibitor. 7. Hypertension. Continue current blood pressure regimen. 8. Coronary disease. Continue current treatment plan. Dictated By: LENA ROLLINS/ANASTASIIA Conf#: [id number] DID#: [id number]
[2017-02-07] MEDS ORDERED: oxyCODONE 5 MG TAB PO PRN (11:00)
[2017-02-07] MEDS: oxyCODONE 5 MG TAB PO PRN ×2 (12:00→20:30)
--- NOTE | 2017-02-07 14:26 | PN ---
Date/Time of Note Date/Time of Note DATE: 02/07/17 TIME: 14:22 Assessment/Plan VTE Prophylaxis VTE Prophylaxis Intervention: LMWH Lines/Catheters IV Catheter Type (from Nrs): Saline Lock Urinary Cath still in place: No Assessment/Plan Chief Complaint/Hosp Course 61 yo female with ESRD on HD, DMII presenting with fever and malaise likely 2/2 UTI, now likely pneumonia Fever likley 2/2 HAP: - Suspect this is a pneumonia given CT and mild hypoxia - Continue broad spectrum abx for now and follow up cultures Needs more HD, effusions and hypoxia at least partially related to fluid overload, planned for tomorrow ESRD: - HD per renal Chostochondritis: - Oxycodone PRN for chest wall pain Dc to facility Problems: Subjective 24 Hr Interval Summary Free Text/Dictation CT yesterday showed small effusions, atelectasis, perhaps underlying pneumonia Today still feels constant chest pain worse with palpation of sternum Some cough Exam/Review of Systems Vital Signs Vitals Vital Signs Date Time Temp Pulse Resp B/P Pulse Ox O2 Delivery O2 Flow Rate FiO2 02/07/17 12:05 85 02/07/17 11:49 98.3 19 119/59 99 02/07/17 08:48 Nasal Cannula 3.0 Intake and Output 02/06/17 02/06/17 02/07/17 14:59 22:59 06:59 Intake Total 1400 ml Output Total 4500 ml Balance -3100 ml Exam Mildly uncomfortable appearing but calm, no distress +++ Pain to palpation of anterior chest wall with guarding Lungs w mild rhonchi Abdmoen soft nt nd LUE AV fistula No edema Results Result Diagram: 02/07/1718 02/07/1718 Results 24 hrs Laboratory Tests Test 02/07/17 08:18 White Blood Count 9.3 # Red Blood Count 3.00 L Hemoglobin 9.0 L Hematocrit 28.6 L Mean Corpuscular Volume 95.3 Mean Corpuscular Hemoglobin 30.0 Mean Corpuscular Hemoglobin Concent 31.5 L Red Cell Distribution Width 14.6 H Platelet Count 201 Mean Platelet Volume 10.5 H Neutrophils % 77.1 H Lymphocytes % 12.8 L Monocytes % 7.9 Eosinophils % 1.4 Basophils % 0.5 Nucleated Red Blood Cells % 0.0 Neutrophils # 7.2 Lymphocytes # 1.2 Monocytes # 0.7 Eosinophils # 0.1 Basophils # 0.1 Nucleated Red Blood Cells # 0.0 Sodium Level 138 Potassium Level 3.6 Chloride Level 95 L Carbon Dioxide Level 29 Anion Gap 18 H Blood Urea Nitrogen 42 #H Creatinine 6.96 H Glucose Level 214 Calcium Level 7.4 L Total Bilirubin 0.0 L Direct Bilirubin 0.00 Indirect Bilirubin 0.0 Aspartate Amino Transf (AST/SGOT) 19 Alanine Aminotransferase (ALT/SGPT) 26 Alkaline Phosphatase 74 Total Protein 7.0 Albumin 3.4 Globulin 3.60 H Albumin/Globulin Ratio 0.94 Medications Medications Current Medications Ondansetron HCl (Zofran Inj) 4 mg Q6H PRN IV NAUSEA AND/OR VOMITING Last administered on 02/04/17 14:13; Admin Dose 4 MG; Start 02/02/17 at 16:00 Atorvastatin Calcium (Lipitor) 80 mg QHS PO Last administered on 02/06/17 20: 28; Admin Dose 80 MG; Start 02/02/17 at 21:00 Calcitriol (Rocaltrol) 0.25 mcg DAILY PO Last administered on 02/07/17 08:49 ; Admin Dose 0.25 MCG; Start 02/03/17 at 09:00 Clopidogrel Bisulfate (plaVIX) 75 mg DAILY PO Last administered on 02/07/17 08:49; Admin Dose 75 MG; Start 02/03/17 at 09:00 Venlafaxine HCl (Effexor Xr) 75 mg DAILY PO Last administered on 02/07/17 08: 49; Admin Dose 75 MG; Start 02/03/17 at 09:00 Meclizine HCl 25 mg 25 mg TID PRN PO DIZZINESS Last administered on 02/04/17 23:05; Admin Dose 25 MG; Start 02/04/17 at 16:30 Cefepime HCl (Maxipime 1gm/50 ml (Pmx)) 50 ml @ 100 mls/hr QAM IVPB Last administered on 02/07/17 08:50; Admin Dose 100 MLS/HR; Start 02/07/17 at 09: 00 Epoetin Miller (Epogen (Esrd)) 6,000 units MoWeFr@17 SC Last administered on 17:28; Admin Dose 6,000 UNITS; Start 11/15/17 at 17:00 Oxycodone HCl (Roxicodone) 5 mg Q6H PRN PO PAIN Last administered on t 12:00; Admin Dose 5 MG; Start 02/07/17 at 11:00 Miscellaneous Information (*Rx Drug Level Order Reminder*) VANCO RANDOM W/ AM LABS... ONCE ONCE XX ; Start 02/08/17 at 05:00; Stop 02/08/17 at 05:01 GENET BAILEY MD Feb 07, 2017 14:26
[2017-02-07] MEDS: ATORVASTATIN 80 MG TAB PO SCH (20:29)
[2017-02-08] VITALS (18 sets, daily range): BP systolic 89–142; BP diastolic 41–66; PULSE 67–79; RESP 19–20
[2017-02-08] MEDS: FUROSEMIDE 40 MG TAB PO SCH ×2 (05:51→21:23)
[2017-02-08] MEDS: SUCRALFATE 1 GM TAB PO SCH ×4 (09:23→21:36)
[2017-02-08] MEDS: CALCIUM ACETATE 667 MG CAP PO SCH ×3 (09:24→21:23)
[2017-02-08] MEDS: VENLAFAXINE (XR) 75 MG CAP PO SCH (09:42)
[2017-02-08] MEDS: CLOPIDOGREL 75 MG TAB PO SCH (09:42)
[2017-02-08] MEDS: CALCITRIOL 0.25 MCG CAP PO SCH (09:42)
[2017-02-08] MEDS: CEFEPIME 1GM/50 ML (PMX) 50 ML IVPB SCH (09:43)
[2017-02-08] MEDS ORDERED: GLUCOSE GEL 15 GRAM TUBE PO PRN ×2 (12:00)
[2017-02-08] MEDS ORDERED: GLUCAGON 1 MG INJ IM PRN (12:00)
[2017-02-08] MEDS ORDERED: DEXTROSE 50% 50 ML SYRINGE IV PRN ×2 (12:00)
[2017-02-08] MEDS ORDERED: GLUCOSE GEL 15 GRAM TUBE BUCCAL PRN (12:00)
[2017-02-08] MEDS: oxyCODONE 5 MG TAB PO PRN (13:05)
[2017-02-08] MEDS: INSULIN ASPART [NOVOLOG] 3 ML PEN SC SCH ×5 (13:17→21:35)
--- NOTE | 2017-02-08 13:22 | RADRPT ---
Vent Rate: 90 bpm RR Interval: 0 msec SC Interval: 158 msec QRS Duration: 100 msec QT Interval: 366 msec QTC Interval: 447 msec P-R-T [place]: 55 - 61 - 52 degrees Normal sinus rhythm Normal ECG Electronically Signed By: Dante Moore [id number]
--- NOTE | 2017-02-08 13:23 | RADRPT ---
Vent Rate: 100 bpm RR Interval: 0 msec [place] Interval: 150 msec QRS Duration: 88 msec QT Interval: 340 msec QTC Interval: 438 msec P-R-T [place]: 157 - 159 - 158 degrees Suspect arm lead reversal, interpretation assumes no reversal Unusual P axis, possible ectopic atrial rhythm Left posterior fascicular block Inferior infarct , age undetermined Abnormal ECG Electronically Signed By: Dante Moore [id number]
[2017-02-08] MEDS ORDERED: KETOROLAC 15 MG INJ IV STA (13:24)
--- NOTE | 2017-02-08 14:56 | PN ---
Date/Time of Note Date/Time of Note DATE: 02/08/17 TIME: 14:55 Assessment/Plan VTE Prophylaxis VTE Prophylaxis Intervention: heparin Lines/Catheters IV Catheter Type (from Nrs): Saline Lock Urinary Cath still in place: No Assessment/Plan Chief Complaint/Hosp Course 61 yo female with ESRD on HD, DMII presenting with fever and malaise likely 2/2 UTI, now likely pneumonia Fever likley 2/2 HAP: - Suspect this is a pneumonia given CT and mild hypoxia - Continue broad spectrum abx for now and follow up cultures Needs more HD, effusions and hypoxia at least partially related to fluid overload, planned for today ESRD: - HD per renal Chostochondritis: - Oxycodone PRN for chest wall pain - Trial of ketorolac Dc to facility Problems: Subjective 24 Hr Interval Summary Free Text/Dictation Still feeling vertigo Chostochondritis pain Fevers have resolved Exam/Review of Systems Vital Signs Vitals Vital Signs Date Time Temp Pulse Resp B/P Pulse Ox O2 Delivery O2 Flow Rate FiO2 02/08/17 12:27 75 02/08/17 11:58 98.3 19 141/65 95 02/08/17 08:10 Nasal Cannula 4.0 Intake and Output 02/07/17 02/07/17 02/08/17 15:00 23:00 07:00 Intake Total 500 ml Balance 500 ml Exam ++ pain to sternum pressure w guarding Results Result Diagram: 02/07/1718 02/07/1718 Results 24 hrs Laboratory Tests Test 02/08/17 05:06 02/08/17 13:09 Random Vancomycin Level 12.4 Bedside Glucose 251 H Medications Medications Current Medications Ondansetron HCl (Zofran Inj) 4 mg Q6H PRN IV NAUSEA AND/OR VOMITING Last administered on 02/04/17 14:13; Admin Dose 4 MG; Start 02/02/17 at 16:00 Atorvastatin Calcium (Lipitor) 80 mg QHS PO Last administered on 02/07/17 20: 29; Admin Dose 80 MG; Start 02/02/17 at 21:00 Calcitriol (Rocaltrol) 0.25 mcg DAILY PO Last administered on 02/08/17 09:42 ; Admin Dose 0.25 MCG; Start 02/03/17 at 09:00 Clopidogrel Bisulfate (plaVIX) 75 mg DAILY PO Last administered on 02/08/17 09:42; Admin Dose 75 MG; Start 02/03/17 at 09:00 Venlafaxine HCl (Effexor Xr) 75 mg DAILY PO Last administered on 02/08/17 09: 42; Admin Dose 75 MG; Start 02/03/17 at 09:00 Meclizine HCl 25 mg 25 mg TID PRN PO DIZZINESS Last administered on 02/04/17 23:05; Admin Dose 25 MG; Start 02/04/17 at 16:30 Cefepime HCl (Maxipime 1gm/50 ml (Pmx)) 50 ml @ 100 mls/hr QAM IVPB Last administered on 02/08/17 09:43; Admin Dose 100 MLS/HR; Start 02/07/17 at 09: 00 Epoetin Miller (Epogen (Esrd)) 6,000 units MoWeFr@17 SC Last administered on 17:28; Admin Dose 6,000 UNITS; Start 02/06/17 at 17:00 Oxycodone HCl 5 mg 5 mg Q6H PRN PO PAIN Last administered on 02/08/17 13:05; Admin Dose 5 MG; Start 02/07/17 at 11:00 Vancomycin HCl (Vancocin) 250 ml @ 125 mls/hr ONCE IVPB ; Start 02/08/17 at 16 :00; Stop 02/08/17 at 23:00 Insulin Glargine (Lantus) 12 unit DAILY@20 SC ; Start 02/08/17 at 20:00 Miscellaneous Information 1 ea NOTE XX ; Start 02/08/17 at 12:00 Glucose (Glutose) 15 gm Q15M PRN PO DECREASED GLUCOSE; Start 02/08/17 at 12:00 Glucose (Glutose) 22.5 gm Q15M PRN PO DECREASED GLUCOSE; Start 02/08/17 at 12: 00 Dextrose (D50w Syringe) 25 ml Q15M PRN IV DECREASED GLUCOSE; Start 02/08/17 at 12:00 Dextrose (D50w Syringe) 50 ml Q15M PRN IV DECREASED GLUCOSE; Start 02/08/17 at 12:00 Glucagon (Glucagen) 1 mg Q15M PRN IM DECREASED GLUCOSE; Start 02/08/17 at 12: 00 Glucose (Glutose) 15 gm Q15M PRN BUCCAL DECREASED GLUCOSE; Start 02/08/17 at 12:00 Diagnostic Test (Pha) (Accu-Chek) 1 ea 02 XX ; Start 02/09/17 at 02:00 GENET BAILEY MD Feb 08, 2017 14:56
--- NOTE | 2017-02-08 15:12 | PN ---
DATE: 02/08/2017 SUBJECTIVE: The patient is stable. No events overnight. No chills, nausea, vomiting. Patient lionel eduled for dialysis today. OBJECTIVE: VITAL SIGNS: Blood pressure is 112/50, temperature 98.1, pulse 75, respirations 19. HEENT: Head is normocephalic. NECK: Supple. HEART: Regular rate. LUNGS: Show diminished breath sounds at base. ABDOMEN: Soft, nontender to palpation. No rebound or guarding. EXTREMITIES: Negative for clubbing, cyanosis, no edema. DERMATOLOGIC: No rashes. MUSCULOSKELETAL: No joint effusions. NEUROLOGIC: No change in exam. MEDICATIONS: The patient's medications have been reviewed. LABORATORY DATA: Shows white count 9.3, hemoglobin 9.0, hematocrit 28.6, platelet count is 201. So dium 138, potassium 3.6, chloride 95, BUN 42, creatinine 6.96. ASSESSMENT AND PLAN: 1. End-stage renal disease. Plan for hemodialysis today. Will dialyze for 3 hours on 3 K bath, ca lcium 2.5. 2. Hyponatremia, improved. 3. Anemia. Monitor hemoglobin and hematocrit levels. Continue Epogen as needed. 4. Mineral bone disorder. Continue to monitor calcium and phosphorus levels. 5. Sepsis secondary to pneumonia. Continue current antibiotic regimen. 6. Hypertension. Continue current blood pressure regimen. 7. Coronary artery disease. Continue current treatment plan. Dictated By: LENA ROLLINS/ANASTASIIA Conf#: [id number] DID#: [id number]
[2017-02-08] MEDS ORDERED: VANCOMYCIN 1 GM in NS 250 ML IVPB SCH (16:00)
[2017-02-08] MEDS ORDERED: ALBUMIN HUMAN 25% 100 ML IV ONE (17:00)
[2017-02-08] MEDS: EPOETIN 3000 UNITS/1 ML INJ (ESRD) SC SCH (21:22)
[2017-02-08] MEDS: ATORVASTATIN 80 MG TAB PO SCH (21:23)
[2017-02-08] MEDS: INSULIN GLARGINE [LANtus] 3 ML PEN SC SCH (21:36)
[2017-02-09] VITALS (11 sets, daily range): BP systolic 116–169; BP diastolic 60–91; PULSE 71–79; RESP 18–20
[2017-02-09] MEDS ORDERED: ACCU-CHEK XX SCH (02:00)
[2017-02-09] MEDS: ACCU-CHEK XX SCH (02:00)
[2017-02-09] MEDS: FUROSEMIDE 40 MG TAB PO SCH ×2 (05:17→17:43)
[2017-02-09 07:25] LABS: BASOPHIL # 0.1 10^3/ul (0.0-0.1); BASOPHILS % 0.6 % (0.0-2.0); EOSINOPHILS # 0.3 10^3/ul (0.0-0.5); EOSINOPHILS % 3.7 % (0.0-7.0); HEMATOCRIT 32.1 % (37.0-47.0); LYMPHOCYTES # 1.1 10^3/ul (0.8-2.9); LYMPHOCYTES % 12.4 % (15.0-51.0); MEAN CORPUSCULAR HEMOGLOBIN 29.7 pg (29.0-33.0); MEAN CORPUSCULAR HGB CONC 31.2 g/dl (32.0-37.0); MEAN CORPUSCULAR VOLUME 95.3 fl (82.0-101.0); MEAN PLATELET VOLUME 10.3 fl (7.4-10.4); MONOCYTE # 0.6 10^3/ul (0.3-0.9); NEUTROPHIL # 6.4 10^3/ul (1.6-7.5); NEUTROPHILS % 75.9 % (39.0-77.0); PLATELET COUNT 252 10^3/UL (140-415); RED BLOOD COUNT 3.37 10^6/ul (4.20-5.40); RED CELL DISTRIBUTION WIDTH 14.1 % (11.5-14.5); WHITE BLOOD COUNT 8.5 10^3/ul (4.8-10.8)
[2017-02-09 08:04] LABS: ALBUMIN 3.7 g/dl (3.3-4.9); CALCIUM 8.4 mg/dl (8.4-10.2); CREATININE 6.9 mg/dl (0.44-1.00); POTASSIUM 3.9 mmol/L (3.5-5.1); TOTAL PROTEIN 7.4 g/dl (6.1-8.1)
[2017-02-09] MEDS: CLOPIDOGREL 75 MG TAB PO SCH (09:18)
[2017-02-09] MEDS: VENLAFAXINE (XR) 75 MG CAP PO SCH (09:18)
[2017-02-09] MEDS: SUCRALFATE 1 GM TAB PO SCH ×4 (09:18→20:47)
[2017-02-09] MEDS: CALCITRIOL 0.25 MCG CAP PO SCH (09:18)
[2017-02-09] MEDS: CALCIUM ACETATE 667 MG CAP PO SCH ×3 (09:18→17:42)
[2017-02-09] MEDS: INSULIN ASPART [NOVOLOG] 3 ML PEN SC SCH ×7 (09:20→20:48)
[2017-02-09] MEDS: CEFEPIME 1GM/50 ML (PMX) 50 ML IVPB SCH (09:37)
--- NOTE | 2017-02-09 11:06 | PN ---
Date/Time of Note Date/Time of Note DATE: 02/09/17 TIME: 11:05 Assessment/Plan VTE Prophylaxis VTE Prophylaxis Intervention: other Lines/Catheters IV [facility] Saline Lock Urinary Cath still in place: No Assessment/Plan Chief Complaint/Hosp Course SUBJECTIVE: The patient is stable. No events overnight. No chills, nausea, vomiting. last hd was yesterday d/w Dr Ramirez OBJECTIVE: HEENT: Head is normocephalic. NECK: Supple. HEART: Regular rate. LUNGS: Show diminished breath sounds at base. ABDOMEN: Soft, nontender to palpation. No rebound or guarding. EXTREMITIES: Negative for clubbing, cyanosis, no edema. DERMATOLOGIC: No rashes. MUSCULOSKELETAL: No joint effusions. NEUROLOGIC: No change in exam. MEDICATIONS: The patient's medications have been reviewed. 1. End-stage renal disease. Plan for hemodialysis in 2 days. 2. Hyponatremia, improved. 3. Anemia. Monitor hemoglobin and hematocrit levels. Continue Epogen as needed. 4. Mineral bone disorder. Continue to monitor calcium and phosphorus levels. 5. Sepsis secondary to pneumonia. Continue current antibiotic regimen. 6. Hypertension. Continue current blood pressure regimen. 7. Coronary artery disease. Continue current treatment plan. Problems: Exam/Review of Systems Vital Signs Vitals Vital Signs Date Time Temp Pulse Resp B/P Pulse Ox O2 Delivery O2 Flow Rate FiO2 02/09/17 08:08 72 02/09/17 07:27 98.2 19 145/60 96 02/09/17 05:59 4.0 02/08/17 20:30 Nasal Cannula Intake and Output 02/08/17 02/08/17 02/09/17 14:59 22:59 06:59 Intake Total 240 ml 1050 ml 300 ml Output Total 3500 ml Balance 240 ml -2450 ml 300 ml Results Result Diagram: 02/09/17 0653 02/09/17 0653 Results 24 hrs Laboratory Tests Test 02/08/17 13:09 02/08/17 16:32 02/08/17 18:38 02/08/17 21:19 Bedside Glucose 251 H 205 164 205 Test 02/09/17 03:19 02/09/17 06:53 02/09/17 09:17 Bedside Glucose 128 179 White Blood Count 8.5 Red Blood Count 3.37 L Hemoglobin 10.0 L Hematocrit 32.1 L Mean Corpuscular Volume 95.3 Mean Corpuscular Hemoglobin 29.7 Mean Corpuscular Hemoglobin Concent 31.2 L Red Cell Distribution Width 14.1 Platelet Count 252 # Mean Platelet Volume 10.3 Neutrophils % 75.9 Lymphocytes % 12.4 L Monocytes % 7.0 Eosinophils % 3.7 Basophils % 0.6 Nucleated Red Blood Cells % 0.0 Neutrophils # 6.4 Lymphocytes # 1.1 Monocytes # 0.6 Eosinophils # 0.3 Basophils # 0.1 Nucleated Red Blood Cells # 0.0 Sodium Level 140 Potassium Level 3.9 Chloride Level 99 Carbon Dioxide Level 30 Anion Gap 15 Blood Urea Nitrogen 40 H Creatinine 6.90 H Glucose Level 139 # Calcium Level 8.4 Total Bilirubin 0.0 L Direct Bilirubin 0.00 Indirect Bilirubin 0.0 Aspartate Amino Transf (AST/SGOT) 22 Alanine Aminotransferase (ALT/SGPT) 29 Alkaline Phosphatase 101 Total Protein 7.4 Albumin 3.7 Globulin 3.70 H Albumin/Globulin Ratio 1.00 Medications Medications Current Medications Ondansetron HCl (Zofran Inj) 4 mg Q6H PRN IV NAUSEA AND/OR VOMITING Last administered on 02/04/17 14:13; Admin Dose 4 MG; Start 02/02/17 at 16:00 Atorvastatin Calcium (Lipitor) 80 mg QHS PO Last administered on 02/08/17 21: 23; Admin Dose 80 MG; Start 02/02/17 at 21:00 Calcitriol (Rocaltrol) 0.25 mcg DAILY PO Last administered on 02/09/17 09:18 ; Admin Dose 0.25 MCG; Start 02/03/17 at 09:00 Clopidogrel Bisulfate (plaVIX) 75 mg DAILY PO Last administered on 02/09/17 09:18; Admin Dose 75 MG; Start 02/03/17 at 09:00 Venlafaxine HCl (Effexor Xr) 75 mg DAILY PO Last administered on 02/09/17 09: 18; Admin Dose 75 MG; Start 02/03/17 at 09:00 Meclizine HCl 25 mg 25 mg TID PRN PO DIZZINESS Last administered on 02/04/17 23:05; Admin Dose 25 MG; Start 02/04/17 at 16:30 Cefepime HCl (Maxipime 1gm/50 ml (Pmx)) 50 ml @ 100 mls/hr QAM IVPB Last administered on 02/09/17 09:37; Admin Dose 100 MLS/HR; Start 02/07/17 at 09: 00 Epoetin Miller (Epogen (Esrd)) 6,000 units MoWeFr@17 SC Last administered on 21:22; Admin Dose 6,000 UNITS; Start 02/06/17 at 17:00 Oxycodone HCl (Roxicodone) 5 mg Q6H PRN PO PAIN Last administered on 13:05; Admin Dose 5 MG; Start 02/07/17 at 11:00 Insulin Glargine (Lantus) 12 unit DAILY@20 SC Last administered on 02/08/17 21:36; Admin Dose 12 UNIT; Start 02/08/17 at 20:00 Miscellaneous Information 1 ea NOTE XX ; Start 02/08/17 at 12:00 Glucose (Glutose) 15 gm Q15M PRN PO DECREASED GLUCOSE; Start 02/08/17 at 12:00 Glucose (Glutose) 22.5 gm Q15M PRN PO DECREASED GLUCOSE; Start 02/08/17 at 12: 00 Dextrose (D50w Syringe) 25 ml Q15M PRN IV DECREASED GLUCOSE; Start 02/08/17 at 12:00 Dextrose (D50w Syringe) 50 ml Q15M PRN IV DECREASED GLUCOSE; Start 02/08/17 at 12:00 Glucagon (Glucagen) 1 mg Q15M PRN IM DECREASED GLUCOSE; Start 02/08/17 at 12: 00 Glucose (Glutose) 15 gm Q15M PRN BUCCAL DECREASED GLUCOSE; Start 02/08/17 at 12:00 Diagnostic Test (Pha) (Accu-Chek) 1 ea 02 XX Last administered on 02/09/17 02 :00; Admin Dose 1 EA; Start 02/09/17 at 02:00 CRUZITO SHAH DO Feb 09, 2017 11:06
--- NOTE | 2017-02-09 15:12 | PN ---
Date/Time of Note Date/Time of Note DATE: 02/09/17 TIME: 15:11 Assessment/Plan VTE Prophylaxis VTE Prophylaxis Intervention: heparin Lines/Catheters IV Catheter Type (from Nrs): Peripheral IV Urinary Cath still in place: No Assessment/Plan Chief Complaint/Hosp Course 61 yo female with ESRD on HD, DMII presenting with fever and malaise likely 2/2 UTI, now likely pneumonia Unclear reason for malaise. Patient seems depressed. Fever likely 2/2 HAP: - Suspect this is a pneumonia given CT and mild hypoxia - Continue broad spectrum abx for now and follow up cultures ESRD: - HD per renal Chostochondritis: - Oxycodone PRN for chest wall pain - Trial of ketorolac DC home tomorrow Problems: Subjective 24 Hr Interval Summary Free Text/Dictation Feels week Seems depressed Fevers resolved Exam/Review of Systems Vital Signs Vitals Vital Signs Date Time Temp Pulse Resp B/P Pulse Ox O2 Delivery O2 Flow Rate FiO2 02/09/17 13:56 4.0 02/09/17 12:08 72 02/09/17 12:03 98.0 19 116/91 96 02/08/17 20:30 Nasal Cannula Intake and Output 02/08/17 02/08/17 02/09/17 15:00 23:00 07:00 Intake Total 240 ml 1050 ml 300 ml Output Total 3500 ml Balance 240 ml -2450 ml 300 ml Exam Flat affect Appears sad NAD Aox3 RRR Clear lugns Abd soft n tnd No edema Results Result Diagram: 02/09/17 0653 02/09/17 0653 Results 24 hrs Laboratory Tests Test 02/08/17 16:32 02/08/17 18:38 02/08/17 21:19 02/09/17 03:19 Bedside Glucose 205 164 205 128 Test 02/09/17 06:53 02/09/17 09:17 02/09/17 12:30 White Blood Count 8.5 Red Blood Count 3.37 L Hemoglobin 10.0 L Hematocrit 32.1 L Mean Corpuscular Volume 95.3 Mean Corpuscular Hemoglobin 29.7 Mean Corpuscular Hemoglobin Concent 31.2 L Red Cell Distribution Width 14.1 Platelet Count 252 # Mean Platelet Volume 10.3 Neutrophils % 75.9 Lymphocytes % 12.4 L Monocytes % 7.0 Eosinophils % 3.7 Basophils % 0.6 Nucleated Red Blood Cells % 0.0 Neutrophils # 6.4 Lymphocytes # 1.1 Monocytes # 0.6 Eosinophils # 0.3 Basophils # 0.1 Nucleated Red Blood Cells # 0.0 Sodium Level 140 Potassium Level 3.9 Chloride Level 99 Carbon Dioxide Level 30 Anion Gap 15 Blood Urea Nitrogen 40 H Creatinine 6.90 H Glucose Level 139 # Calcium Level 8.4 Total Bilirubin 0.0 L Direct Bilirubin 0.00 Indirect Bilirubin 0.0 Aspartate Amino Transf (AST/SGOT) 22 Alanine Aminotransferase (ALT/SGPT) 29 Alkaline Phosphatase 101 Total Protein 7.4 Albumin 3.7 Globulin 3.70 H Albumin/Globulin Ratio 1.00 Bedside Glucose 179 155 Medications Medications Current Medications Ondansetron HCl (Zofran Inj) 4 mg Q6H PRN IV NAUSEA AND/OR VOMITING Last administered on 02/04/17 14:13; Admin Dose 4 MG; Start 02/02/17 at 16:00 Atorvastatin Calcium (Lipitor) 80 mg QHS PO Last administered on 02/08/17 21: 23; Admin Dose 80 MG; Start 02/02/17 at 21:00 Calcitriol (Rocaltrol) 0.25 mcg DAILY PO Last administered on 02/09/17 09:18 ; Admin Dose 0.25 MCG; Start 02/03/17 at 09:00 Clopidogrel Bisulfate (plaVIX) 75 mg DAILY PO Last administered on 02/09/17 09:18; Admin Dose 75 MG; Start 02/03/17 at 09:00 Venlafaxine HCl (Effexor Xr) 75 mg DAILY PO Last administered on 02/09/17 09: 18; Admin Dose 75 MG; Start 02/03/17 at 09:00 Meclizine HCl 25 mg 25 mg TID PRN PO DIZZINESS Last administered on 02/04/17 23:05; Admin Dose 25 MG; Start 02/04/17 at 16:30 Cefepime HCl (Maxipime 1gm/50 ml (Pmx)) 50 ml @ 100 mls/hr QAM IVPB Last administered on 02/09/17 09:37; Admin Dose 100 MLS/HR; Start 02/07/17 at 09: 00 Epoetin Miller (Epogen (Esrd)) 6,000 units MoWeFr@17 SC Last administered on 21:22; Admin Dose 6,000 UNITS; Start 02/06/17 at 17:00 Oxycodone HCl (Roxicodone) 5 mg Q6H PRN PO PAIN Last administered on 13:05; Admin Dose 5 MG; Start 02/07/17 at 11:00 Insulin Glargine (Lantus) 12 unit DAILY@20 SC Last administered on 02/08/17 21:36; Admin Dose 12 UNIT; Start 02/08/17 at 20:00 Miscellaneous Information 1 ea NOTE XX ; Start 02/08/17 at 12:00 Glucose (Glutose) 15 gm Q15M PRN PO DECREASED GLUCOSE; Start 02/08/17 at 12:00 Glucose (Glutose) 22.5 gm Q15M PRN PO DECREASED GLUCOSE; Start 02/08/17 at 12: 00 Dextrose (D50w Syringe) 25 ml Q15M PRN IV DECREASED GLUCOSE; Start 02/08/17 at 12:00 Dextrose (D50w Syringe) 50 ml Q15M PRN IV DECREASED GLUCOSE; Start 02/08/17 at 12:00 Glucagon (Glucagen) 1 mg Q15M PRN IM DECREASED GLUCOSE; Start 02/08/17 at 12: 00 Glucose (Glutose) 15 gm Q15M PRN BUCCAL DECREASED GLUCOSE; Start 02/08/17 at 12:00 Diagnostic Test (Pha) (Accu-Chek) 1 ea 02 XX Last administered on 02/09/17 02 :00; Admin Dose 1 EA; Start 02/09/17 at 02:00 GENET BAILEY MD Feb 09, 2017 15:12
[2017-02-09] MEDS ORDERED: POLYETHYLENE GLYCOL 3350 119 GM POWDER PO ONE (20:30)
[2017-02-09] MEDS: DOCUSATE SODIUM 100 MG CAP PO SCH (20:46)
[2017-02-09] MEDS: ATORVASTATIN 80 MG TAB PO SCH (20:47)
[2017-02-09] MEDS: INSULIN GLARGINE [LANtus] 3 ML PEN SC SCH (20:48)
[2017-02-10] VITALS (12 sets, daily range): BP systolic 151–175; BP diastolic 69–96; PULSE 66–76; RESP 16–20
[2017-02-10] MEDS: ACCU-CHEK XX SCH (02:00)
[2017-02-10] MEDS: FUROSEMIDE 40 MG TAB PO SCH ×2 (05:28→17:09)
[2017-02-10] MEDS: INSULIN ASPART [NOVOLOG] 3 ML PEN SC SCH ×7 (08:00→20:36)
[2017-02-10] MEDS ORDERED: POLYETHYLENE GLYCOL 3350 119 GM POWDER PO ONE (09:00)
[2017-02-10] MEDS: SUCRALFATE 1 GM TAB PO SCH ×4 (09:46→20:30)
[2017-02-10] MEDS: CALCIUM ACETATE 667 MG CAP PO SCH ×3 (09:46→17:09)
[2017-02-10] MEDS: VENLAFAXINE (XR) 75 MG CAP PO SCH (09:46)
[2017-02-10] MEDS: CLOPIDOGREL 75 MG TAB PO SCH (09:46)
[2017-02-10] MEDS: DOCUSATE SODIUM 100 MG CAP PO SCH ×2 (09:46→20:31)
[2017-02-10] MEDS: CALCITRIOL 0.25 MCG CAP PO SCH (09:46)
--- NOTE | 2017-02-10 10:29 | PN ---
Date/Time of Note Date/Time of Note DATE: 02/10/17 TIME: 10:28 Assessment/Plan VTE Prophylaxis VTE Prophylaxis Intervention: other Lines/Catheters IV C[facility]ter Type (from [facility] Saline Lock Urinary Cath still in place: No Assessment/Plan Chief Complaint/Hosp Course SUBJECTIVE: The patient is stable. No events overnight. No chills, nausea, vomiting. last hd was 2 days ago d/w Dr Ramirez OBJECTIVE: HEENT: Head is normocephalic. NECK: Supple. HEART: Regular rate. LUNGS: Show diminished breath sounds at base. ABDOMEN: Soft, nontender to palpation. No rebound or guarding. EXTREMITIES: Negative for clubbing, cyanosis, no edema. DERMATOLOGIC: No rashes. MUSCULOSKELETAL: No joint effusions. NEUROLOGIC: No change in exam. MEDICATIONS: The patient's medications have been reviewed. 1. End-stage renal disease. Plan for hemodialysis tomorrow 2. Hyponatremia, improved. 3. Anemia. Monitor hemoglobin and hematocrit levels. Continue Epogen as needed. 4. Mineral bone disorder. Continue to monitor calcium and phosphorus levels. 5. Sepsis secondary to pneumonia. Continue current antibiotic regimen. 6. Hypertension. Continue current blood pressure regimen. 7. Coronary artery disease. Continue current treatment plan. Problems: Exam/Review of Systems Vital Signs Vitals Vital Signs Date Time Temp Pulse Resp B/P Pulse Ox O2 Delivery O2 Flow Rate FiO2 02/10/17 08:25 98.5 73 16 165/69 92 02/10/17 02:33 4.0 02/08/17 20:30 Nasal Cannula Intake and Output 02/09/17 02/09/17 02/10/17 15:00 23:00 07:00 Intake Total 480 ml 400 ml Balance 480 ml 400 ml Results Result Diagram: 02/09/17 0653 02/09/17 0653 Results 24 hrs Laboratory Tests Test 02/09/17 12:30 02/09/17 17:04 02/09/17 17:46 02/09/17 20:43 Bedside Glucose 155 121 110 182 Test 02/10/17 08:50 Bedside Glucose 131 Medications Medications Current Medications Ondansetron HCl (Zofran Inj) 4 mg Q6H PRN IV NAUSEA AND/OR VOMITING Last administered on 02/04/17t 14:13; Admin Dose 4 MG; Start 02/02/17 at 16:00 Atorvastatin Calcium (Lipitor) 80 mg QHS PO Last administered on 02/09/17 20: 47; Admin Dose 80 MG; Start 02/02/17 at 21:00 Calcitriol (Rocaltrol) 0.25 mcg DAILY PO Last administered on 02/10/17 09:46 ; Admin Dose 0.25 MCG; Start 02/03/17 at 09:00 Clopidogrel Bisulfate (plaVIX) 75 mg DAILY PO Last administered on 02/10/17 09:46; Admin Dose 75 MG; Start 02/03/17 at 09:00 Venlafaxine HCl (Effexor Xr) 75 mg DAILY PO Last administered on 02/10/17 09: 46; Admin Dose 75 MG; Start 02/03/17 at 09:00 Meclizine HCl 25 mg 25 mg TID PRN PO DIZZINESS Last administered on 02/04/17 23:05; Admin Dose 25 MG; Start 02/04/17 at 16:30 Cefepime HCl (Maxipime 1gm/50 ml (Pmx)) 50 ml @ 100 mls/hr QAM IVPB Last administered on 02/09/17 09:37; Admin Dose 100 MLS/HR; Start 02/07/17 at 09: 00 Epoetin Miller (Epogen (Esrd)) 6,000 units MoWeFr@17 SC Last administered on 21:22; Admin Dose 6,000 UNITS; Start 02/06/17 at 17:00 Oxycodone HCl (Roxicodone) 5 mg Q6H PRN PO PAIN Last administered on 13:05; Admin Dose 5 MG; Start 02/07/17 at 11:00 Insulin Glargine (Lantus) 12 unit DAILY@20 SC Last administered on 02/09/17 20:48; Admin Dose 12 UNIT; Start 02/08/17 at 20:00 Miscellaneous Information 1 ea NOTE XX ; Start 02/08/17 at 12:00 Glucose (Glutose) 15 gm Q15M PRN PO DECREASED GLUCOSE; Start 02/08/17 at 12:00 Glucose (Glutose) 22.5 gm Q15M PRN PO DECREASED GLUCOSE; Start 02/08/17 at 12: 00 Dextrose (D50w Syringe) 25 ml Q15M PRN IV DECREASED GLUCOSE; Start 02/08/17 at 12:00 Dextrose (D50w Syringe) 50 ml Q15M PRN IV DECREASED GLUCOSE; Start 02/08/17 at 12:00 Glucagon (Glucagen) 1 mg Q15M PRN IM DECREASED GLUCOSE; Start 02/08/17 at 12: 00 Glucose (Glutose) 15 gm Q15M PRN BUCCAL DECREASED GLUCOSE; Start 02/08/17 at 12:00 Diagnostic Test (Pha) (Accu-Chek) 1 ea 02 XX Last administered on 02/09/17 02 :00; Admin Dose 1 EA; Start 02/09/17 at 02:00 Docusate Sodium (Colace) 100 mg BID PO Last administered on 02/10/17 09:46; Admin Dose 100 MG; Start 02/09/17 at 21:00 CRUZITO SHAH DO Feb 10, 2017 10:29
[2017-02-10] MEDS: CEFEPIME 1GM/50 ML (PMX) 50 ML IVPB SCH (10:58)
[2017-02-10] MEDS: oxyCODONE 5 MG TAB PO PRN (12:57)
[2017-02-10] MEDS ORDERED: KETOROLAC 15 MG INJ IV STA (14:54)
--- NOTE | 2017-02-10 15:28 | PN ---
Date/Time of Note Date/Time of Note DATE: 02/10/17 TIME: 15:27 Assessment/Plan VTE Prophylaxis VTE Prophylaxis Intervention: heparin Lines/Catheters IV Catheter Type (from Nrs): Saline Lock Urinary Cath still in place: No Assessment/Plan Chief Complaint/Hosp Course 61 yo female with ESRD on HD, DMII presenting with fever and malaise likely 2/2 UTI, now likely pneumonia Unclear reason for malaise. Patient seems depressed with flat affect. can consider SSRI Healthcare associated pneumonia: - Suspect this is a pneumonia given CT and mild hypoxia - Continue broad spectrum abx to complete 7 day course ESRD: - HD per renal Chostochondritis: - Oxycodone PRN for chest wall pain - Ketorolac PRN DC home tomorrow after dialysis Problems: Subjective 24 Hr Interval Summary Free Text/Dictation Having cough with phleghm production which is new Continues to have MSk chest pain, requests another toradol injection Exam/Review of Systems Vital Signs Vitals Vital Signs Date Time Temp Pulse Resp B/P Pulse Ox O2 Delivery O2 Flow Rate FiO2 02/10/17 15:20 98.8 78 18 157/96 95 02/10/17 13:49 4.0 02/08/17 20:30 Nasal Cannula Intake and Output 02/09/17 02/09/17 02/10/17 15:00 23:00 07:00 Intake Total 480 ml 400 ml Balance 480 ml 400 ml Results Result Diagram: 02/09/17 0653 02/09/17 0653 Results 24 hrs Laboratory Tests Test 02/09/17 17:04 02/09/17 17:46 02/09/17 20:43 02/10/17 08:50 Bedside Glucose 121 110 182 131 Test 02/10/17 11:54 Bedside Glucose 184 Medications Medications Current Medications Ondansetron HCl (Zofran Inj) 4 mg Q6H PRN IV NAUSEA AND/OR VOMITING Last administered on 02/04/17 14:13; Admin Dose 4 MG; Start 02/02/17 at 16:00 Atorvastatin Calcium (Lipitor) 80 mg QHS PO Last administered on 02/09/17 20: 47; Admin Dose 80 MG; Start 02/02/17 at 21:00 Calcitriol (Rocaltrol) 0.25 mcg DAILY PO Last administered on 02/10/17 09:46 ; Admin Dose 0.25 MCG; Start 02/03/17 at 09:00 Clopidogrel Bisulfate (plaVIX) 75 mg DAILY PO Last administered on 02/10/17 09:46; Admin Dose 75 MG; Start 02/03/17 at 09:00 Venlafaxine HCl (Effexor Xr) 75 mg DAILY PO Last administered on 02/10/17 09: 46; Admin Dose 75 MG; Start 02/03/17 at 09:00 Meclizine HCl 25 mg 25 mg TID PRN PO DIZZINESS Last administered on 02/04/17 23:05; Admin Dose 25 MG; Start 02/04/17 at 16:30 Cefepime HCl (Maxipime 1gm/50 ml (Pmx)) 50 ml @ 100 mls/hr QAM IVPB Last administered on 02/10/17 10:58; Admin Dose 100 MLS/HR; Start 02/07/17 at 09: 00 Epoetin Miller (Epogen (Esrd)) 6,000 units MoWeFr@17 SC Last administered on 21:22; Admin Dose 6,000 UNITS; Start 02/06/17 at 17:00 Oxycodone HCl (Roxicodone) 5 mg Q6H PRN PO PAIN Last administered on 12:57; Admin Dose 5 MG; Start 02/07/17 at 11:00 Insulin Glargine (Lantus) 12 unit DAILY@20 SC Last administered on 02/09/17 20:48; Admin Dose 12 UNIT; Start 02/08/17 at 20:00 Miscellaneous Information 1 ea NOTE XX ; Start 02/08/17 at 12:00 Glucose (Glutose) 15 gm Q15M PRN PO DECREASED GLUCOSE; Start 02/08/17 at 12:00 Glucose (Glutose) 22.5 gm Q15M PRN PO DECREASED GLUCOSE; Start 02/08/17 at 12: 00 Dextrose (D50w Syringe) 25 ml Q15M PRN IV DECREASED GLUCOSE; Start 02/08/17 at 12:00 Dextrose (D50w Syringe) 50 ml Q15M PRN IV DECREASED GLUCOSE; Start 02/08/17 at 12:00 Glucagon (Glucagen) 1 mg Q15M PRN IM DECREASED GLUCOSE; Start 02/08/17 at 12: 00 Glucose (Glutose) 15 gm Q15M PRN BUCCAL DECREASED GLUCOSE; Start 02/08/17 at 12:00 Diagnostic Test (Pha) (Accu-Chek) 1 ea 02 XX Last administered on 02/09/17 02 :00; Admin Dose 1 EA; Start 02/09/17 at 02:00 Docusate Sodium (Colace) 100 mg BID PO Last administered on 02/10/17 09:46; Admin Dose 100 MG; Start 02/09/17 at 21:00 GENET BAILEY MD Feb 10, 2017 15:28
[2017-02-10] MEDS: LEVALBUTEROL (NEB) 0.63 MG/3 ML AMP HHN PRN (15:43)
[2017-02-10] MEDS: ATORVASTATIN 80 MG TAB PO SCH (20:30)
[2017-02-10] MEDS: INSULIN GLARGINE [LANtus] 3 ML PEN SC SCH (20:35)
[2017-02-11] VITALS (15 sets, daily range): BP systolic 103–177; BP diastolic 59–81; PULSE 65–73; RESP 18–20
[2017-02-11] MEDS: ACCU-CHEK XX SCH (02:00)
[2017-02-11] MEDS: SUCRALFATE 1 GM TAB PO SCH ×2 (06:07→12:48)
[2017-02-11] MEDS: FUROSEMIDE 40 MG TAB PO SCH (06:08)
[2017-02-11] MEDS: INSULIN ASPART [NOVOLOG] 3 ML PEN SC SCH ×4 (08:00→12:55)
[2017-02-11] MEDS: oxyCODONE 5 MG TAB PO PRN (09:08)
[2017-02-11] MEDS: CALCIUM ACETATE 667 MG CAP PO SCH ×2 (09:08→12:48)
[2017-02-11] MEDS: VENLAFAXINE (XR) 75 MG CAP PO SCH (09:08)
[2017-02-11] MEDS: CLOPIDOGREL 75 MG TAB PO SCH (09:08)
[2017-02-11] MEDS: DOCUSATE SODIUM 100 MG CAP PO SCH (09:08)
[2017-02-11] MEDS: CALCITRIOL 0.25 MCG CAP PO SCH (09:08)
[2017-02-11] MEDS: CEFEPIME 1GM/50 ML (PMX) 50 ML IVPB SCH (09:11)
[2017-02-11 11:37] LABS: BASOPHIL # 0.1 10^3/ul (0.0-0.1); BASOPHILS % 0.8 % (0.0-2.0); EOSINOPHILS # 0.2 10^3/ul (0.0-0.5); EOSINOPHILS % 2.8 % (0.0-7.0); HEMATOCRIT 32.8 % (37.0-47.0); HEMOGLOBIN 10.5 g/dl (12.0-16.0); MEAN CORPUSCULAR HEMOGLOBIN 29.5 pg (29.0-33.0); MEAN CORPUSCULAR VOLUME 92.1 fl (82.0-101.0); MEAN PLATELET VOLUME 10.1 fl (7.4-10.4); MONOCYTE # 0.6 10^3/ul (0.3-0.9); MONOCYTES % 7.1 % (0.0-11.0); NEUTROPHILS % 75.9 % (39.0-77.0); PLATELET COUNT 293 10^3/UL (140-415); RED BLOOD COUNT 3.56 10^6/ul (4.20-5.40); WHITE BLOOD COUNT 7.9 10^3/ul (4.8-10.8)
--- NOTE | 2017-02-11 12:08 | PDOCDIS ---
Discharge Instructions CONDITION Patient Condition: Good HOME CARE INSTRUCTIONS: Special Diet: RENAL ACTIVITY: Activity Restrictions: No Restrictions FOLLOW UP/APPOINTMENTS Follow-up Plan F/U WITH YOUR PCP IN 1-2 WEEKS AND WITH YOUR HD CENTER SCHEDULED SUSANA CHRISTINE Feb 11, 2017 12:08
[2017-02-11 12:16] LABS: CALCIUM 8.8 mg/dl (8.4-10.2); CREATININE 9.86 mg/dl (0.44-1.00); POTASSIUM 4.2 mmol/L (3.5-5.1)
--- NOTE | 2017-02-11 12:40 | PN ---
DATE: 02/11/2017 SUBJECTIVE: The patient is stable, scheduled for hemodialysis. No other events noted. OBJECTIVE: VITAL SIGNS: Blood pressure 176/81, respiration 18, pulse 67, temperature 98.6. HEENT: Head is normocephalic. NECK: Supple. HEART: Regular rate. LUNGS: Show diminished breath sounds at the base. ABDOMEN: Soft, nontender to palpation. No rebound or guarding. EXTREMITIES: Negative for clubbing, cyanosis, no edema. DERMATOLOGIC: No rashes. MUSCULOSKELETAL: No joint effusions. NEUROLOGIC: No change in exam. MEDICATIONS: The patient's medications have been reviewed. LABORATORY DATA: From 02/11/2017 was reviewed. ASSESSMENT AND PLAN: 1. End-stage renal disease. The patient is on dialysis Saturday, Saturday, Saturday. Plan for hemodi alysis today. Will dialyze for 3 hours on a 3 K bath, calcium 2.5, will ultrafiltrate as tolerated. 2. Hyponatremia, improved. 3. Anemia. Monitor hemoglobin and hematocrit levels. Continue Epogen as needed. 4. Mineral bone disease. Monitor calcium and phosphorus levels. 5. Sepsis, secondary to pneumonia. Continue current antibiotic regimen. 6. Hypertension. Continue current blood pressure regimen. 7. Coronary artery disease. Continue current treatment plan. Dictated By: LENA ROLLINS/ANASTASIIA Conf#: [id number] DID#: [id number]
--- NOTE | 2017-02-11 15:06 | DS ---
Date/Time of Note Date/Time of Note DATE: 02/11/17 TIME: 15:00 Discharge Summary Admission/Discharge Info Admit Date/Time Feb 03, 2017 at 08:53 Discharge Date/Time February 11, 2017 Discharge Diagnosis 1. Sepsis secondary to UTI-resolved Status post antibiotics 2. End-stage renal disease HD as scheduled 3. Diabetes Continue home regimen 4. Costochondritis Pain control Patient Condition: Good Hospital Course Patient is a 61-year-old female with history of end-stage renal disease on dialysis Saturday, severe gastritis coronary disease, hypertension and dyslipidemia. Patient presents with malaise, tachycardia weakness and chills that began last night progressed into the morning. In the ED patient had a UA that did suggest UTI. Of note patient does produce urine. Patient received antibiotics, a CT chest was done which showed bilateral pleural effusions and a possibility of pneumonia. Patient received HD in house. Blood cultures were negative and the patient was felt to be stable for DC, on the day of discharge patient's vitals labs and physical exam are stable she had no further acute complaints and questions were answered. Patient was felt to have received an adequate amount antibiotics and did not require further antibiotics. Home Meds Active Scripts Hydrocodone/Acetaminophen ([place] 5-325 Tablet) 1 Each Tablet, 1 TAB PO Q6H Y for PAIN, #20 TAB Prov:MARTHA HOLLEY DO 12/10/16 Sucralfate* (Carafate*) 1 Gm Tab, 1 GM PO AC MEALS AND BEDTIME, #100 TAB Prov:YAÑEZ,YAHIR V. WAFER CUTTER 10/12/16 Pantoprazole* (Protonix*) 40 Mg Tablet.dr, 40 MG PO BID, #100 TAB Prov:YAÑEZ,YAHIR V. WAFER CUTTER 10/12/16 Bisacodyl* (Dulcolax*) 5 Mg Tablet.dr, 10 MG PO DAILY for 30 Days, TAB Prov:YAÑEZ,YAHIR V. WAFER CUTTER 10/12/16 Gabapentin* (Neurontin*) 300 Mg Capsule, 300 MG PO BID, #60 CAP Prov:ZAYRACHARLENEO M. 05/19/16 Lactobacillus Acidoph/Bulgaricus* (Floranex*) 1 Each Tablet, 1 TAB PO BID for 30 Days, TAB Prov:ZAYRALISSY Stevens M. 05/19/16 Carvedilol* (Carvedilol*) 12.5 Mg Tablet, 12.5 MG PO BID for 30 Days, TAB 2 Refills Prov:LISSY IVERSON 05/19/16 Reported Medications Selenium Sulfide (Selenium Sulfide) 120 Ml Shampoo, 120 ML TP 2 TIMES WEEKLY 10/09/16 Metoclopramide* (Reglan*) 5 Mg Tablet, 5 MG PO AC MEALS , TAB 10/09/16 Baclofen* (Baclofen*) 10 Mg Tablet, 10 MG PO BID Y for MUSCLE SPASMS, TAB 10/09/16 Atorvastatin* (Atorvastatin*) 80 Mg Tablet, 80 MG PO QHS, #30 TAB 10/09/16 Calcitriol* (Calcitriol*) 0.25 Mcg Capsule, 0.25 MCG PO DAILY, CAP 10/09/16 Hydralazine Hcl* (Hydralazine Hcl*) 100 Mg Tablet, 100 MG PO BID, #90 TAB 10/09/16 Venlafaxine Hcl* (Effexor XR*) 75 Mg Tab.er.24, 75 MG PO DAILY, TAB.SA 10/09/16 Calcium Acetate (Calcium Acetate) 667 Mg Tablet, 667 MG PO WITH MEALS, #30 TAB 10/09/16 Losartan Potassium* (Losartan Potassium*) 50 Mg Tablet, 50 MG PO DAILY, TAB 05/11/16 Furosemide* (Furosemide*) 80 Mg Tablet, 80 MG PO BID, #60 TAB 05/11/16 Amlodipine Besylate* (Norvasc*) 5 Mg Tablet, 5 MG PO DAILY, TAB 10/13/15 Clopidogrel Bisulfate (Clopidogrel) 75 Mg Tablet, 75 MG PO DAILY, TAB 02/26/14 Follow-up Plan F/U WITH YOUR PCP IN 1-2 WEEKS AND WITH YOUR HD CENTER SCHEDULED Primary Care Provider [facility] Time spent on discharge: > 30 minutes SUSANA CHRISTINE Feb 11, 2017 15:06
[2017-02-11] MEDS: EPOETIN 3000 UNITS/1 ML INJ (ESRD) SC SCH (16:53)
== END 2017-02-11 17:35 | disposition home or self-care (01) | DRG 871 ==
LOC: E/R 10:32 → MS2 13:45 → INTOOBSV 13:45 → MS4 20:07 → OBSVTOIN 02-03 08:53
PROVIDERS: ADMIT Hospitalist; ATTEND Hospitalist
PROC: 5A1D70Z Performance of Urinary Filtration, Intermittent, Less than 6 Hours Per Day (ICD-10-PCS; principal; 2017-02-03)
DX: A41.9 Sepsis, unspecified organism (principal); N18.6 End stage renal disease; J18.9 Pneumonia, unspecified organism; I12.0 Hypertensive chronic kidney disease with stage 5 chronic kidney disease or end stage renal disease; N39.0 Urinary tract infection, site not specified; E87.1 Hypo-osmolality and hyponatremia; K29.70 Gastritis, unspecified, without bleeding; E78.5 Hyperlipidemia, unspecified; D64.9 Anemia, unspecified; E83.9 Disorder of mineral metabolism, unspecified; I25.10 Atherosclerotic heart disease of native coronary artery without angina pectoris; M94.0 Chondrocostal junction syndrome [Tietze]; Z99.2 Dependence on renal dialysis
CPT/HCPCS: 36600; 70450; 71010; 71250; 76700; 78582; 80048; 80053; 80202; 81001; 82150; 82550; 82553; 82803; 82962; 83036; 83605; 83690; 83735; 83880; 84100; 84436; 84443; 84479; 84484; 85025; 85378; 85610; 85730; 87040; 87086; 87400; 89220; 90935; 92526; 92610; 93005; 94640; 94664; 96374; 96375; 97110; 97116; 97161; 97530; 99217; G0378; A9540; J0692; J0696; J0886; J1815; J1885; J2270; J2405; J3370; J7040; J7050; P9047

== ENCOUNTER 2017-04-16 14:12 | Emergency (ER) | END 2017-04-16 20:15 | disposition home or self-care (01) ==

== ENCOUNTER 2017-05-31 10:25 | Emergency (ER) | END 2017-05-31 20:45 | disposition left against medical advice (07) ==

== ENCOUNTER 2017-07-05 04:18 | Inpatient (IN) | END 2017-07-06 19:10 | disposition home or self-care (01) | DRG 70 ==

== ENCOUNTER 2017-09-25 12:26 | Emergency (ER) | END 2017-09-25 21:31 | disposition home or self-care (01) ==